=== PATIENT | male | born 1960 | race American Indian/Alaskan Native ===

== ENCOUNTER 2019-05-27 15:36 | Inpatient (IN) | payer BC, OTHER ==
--- NOTE | 2019-05-27 17:07 | Consultation ---
History of Present Illness - History of Present Illness 58 year old with medical history signficant for HTN, DM type II s/p BKA , ESRD on hemodialysis via a Right IJ cath at [facility]. Patient went to dialysis today and had a fever of 102.2 , associated chills. , has associated nausea, vomitting, diarrhoea, Denies any cough. He denies any shortness of breath , orthopnea or PND. He denies any dizziness or lightheadedness. He has a left BKA. Last dialysis was monday. Past History Past Medical History: dialysis Medications and Allergies Allergies Allergy/AdvReac Type Severity Reaction Status Date / Time No Known Allergies Allergy Verified 05/27/19 17:20 Home Medications Medication Instructions Recorded Confirmed Last Taken Type Lisinopril [Zestril TAB] 5 mg PO QDAY #30 tablet 03/27/14 05/27/19 05/27/19 08:00 Rx AtorvaSTATin [Lipitor] 40 mg PO QHS 05/27/19 05/27/19 05/26/19 21:00 History Carvedilol [Coreg] 25 mg PO DAILY 05/27/19 05/27/19 05/27/19 08:00 History Finasteride 5 mg PO QDAY 05/27/19 05/28/19 05/27/19 08:00 History Gabapentin [Neurontin] 300 mg PO DAILY 05/27/19 05/27/19 05/27/19 08:00 History Insulin NPH Hum/Reg Insulin Hm 100 unit SQ BID 05/27/19 05/28/19 05/27/19 08:00 History [HumuLIN 70-30 Vial] Losartan Potassium 100 mg PO DAILY 05/27/19 05/27/19 05/27/19 08:00 History Oxycodone HCl [oxyCODONE] 5 mg PO PRN PRN 05/27/19 05/27/19 05/27/19 08:00 History Vit B Comp No.3/Folic/C/Biotin 1 tab PO QDAY 05/27/19 05/27/19 05/27/19 08:00 History [Jerrica-Estrella Rx Tablet] amLODIPine [Norvasc] 10 mg PO DAILY 05/27/19 05/27/19 05/27/19 08:00 History traMADol [Ultram] 50 mg PO PRN PRN 05/27/19 05/27/19 05/27/19 08:00 History Review of Systems Constitutional: fever, chills, anorexia, poor appetite, no weight loss, no weight gain Ears, nose, mouth and throat: no deferred, no ear pain Cardiovascular: no chest pain, no orthopnea Respiratory: no cough Gastrointestinal: nausea, vomiting, diarrhea Genitourinary Male: no dysuria, no hematuria Rectal: no pain Musculoskeletal: no neck stiffness Integumentary: no deferred Neurological: no head injury, no vertigo Psychiatric: no anxiety, no memory loss Endocrine: cold intolerance, excessive sweating, no heat intolerance Allergic/Immunologic: no urticaria Exam - General Appearance General appearance: well-developed, well-nourished EENT: ATNC, PERRL Neck: Present: neck supple Respiratory: Clear to Ascultation Heart: regular, S1S2 Gastrointestinal: Present: normal, normoactive bowel sounds Integumentary: rash Neurologic: alert and oriented x3, CN 3-12 intact Musculoskeletal: Present: other (left BKA ) Psychiatric: mood/affect appropriate Results - Lab Results 05/28/19 05:04 05/28/19 05:04 - Image Kidney/bladder ultrasound: other (i received CXR with patchy hazy opacities/interstitial markings. ) Assessment and Plan - Patient Problems (1) End stage renal disease Current Visit: Yes Status: Acute Plan to address problem: ESRD on hemodialysis access : right IJ cath No acute hyperkalemia Will initiate HD in am. (2) Sepsis Current Visit: Yes Status: Acute Qualifiers: Sepsis type: sepsis due to unspecified organism Sepsis acute organ dysfunction status: without acute organ dysfunction Qualified Code(s): A41.9 - Sepsis, unspecified organism Plan to address problem: Sepsis : - obtain blood cultures - Will start broad spectrum antibiotics. (3) HTN (hypertension) Current Visit: No Status: Acute Qualifiers: Hypertension type: essential hypertension Qualified Code(s): I10 - Essential (primary) hypertension Plan to address problem: HTN; controlled Ensure medications monitor blood pressure. (4) DM type 2 causing complication Current Visit: No Status: Acute Plan to address problem: DM type II - Ensure medications. montior blood pressure.
[2019-05-27] MEDS ORDERED: SODIUM CHLORIDE 0.9% 500 ML 500 ML IV ONE (17:29)
[2019-05-27] MEDS ORDERED: CEFEPIME/NS 2 GM/100 ML 2 GM/100 ML BAG IV SCH (18:00)
[2019-05-27] MEDS ORDERED: VANCOMYCIN PHARMACY TO DOSE IV SCH ×2 (18:00→21:00)
--- NOTE | 2019-05-27 18:03 | XRay Report ---
CHEST 1 VIEW 5:42 PM INDICATION / CLINICAL INFORMATION: Possible sepsis. COMPARISON: 03/25/2014. FINDINGS: SUPPORT DEVICES: There is a right jugular permacath with the tip overlying the distal SVC. HEART / MEDIASTINUM: The heart size is borderline. Pulmonary vasculature is normal. LUNGS / PLEURA: No significant pulmonary or pleural abnormality. No pneumothorax. ADDITIONAL FINDINGS: There is mild to moderate elevation of the left hemidiaphragm, new since the balire or study. IMPRESSION: No evidence of pneumonia. Signer Name: Bala Garcia MD Signed: 05/27/2019 5:59 PM Workstation Name: [id number]
[2019-05-27 18:06] LABS: Hematocrit 31.1 % (35.5-45.6); Hemoglobin 9.9 gm/dl (11.8-15.2); Mean Corpuscular HGB Conc 32 % (32-34); Mean Corpuscular Volume 88 fl (84-94); Platelet Count 207 K/mm3 (140-440); Red Blood Count 3.51 M/mm3 (3.65-5.03); Red Cell Distribution Width 16.5 % (13.2-15.2)
[2019-05-27 18:17] LABS: INR 1.33 (0.87-1.13)
[2019-05-27] MEDS ORDERED: ACETAMINOPHEN 500 MG TAB PO ONE (18:29)
[2019-05-27 18:30] LABS: Calcium 8.1 mg/dL (8.4-10.2)
[2019-05-27] MEDS ORDERED: ACETAMINOPHEN 500 MG TAB ONE (18:30)
[2019-05-27] MEDS ORDERED: VANCOMYCIN 2,000 MG in SODIUM CHLORIDE 0.9% 500 ML 500 ML IV ONE (18:34)
--- NOTE | 2019-05-27 19:27 | Emergency Department Report ---
ED Fever HPI - General Chief Complaint: Fever Stated Complaint: FEVER/CHILLS Time Seen by Provider: 05/27/19 17:31 - History of Present Illness Initial Comments: Patient is a 58-year-old -Finnish male with past history of hypertension diabetes and end-stage renal disease who is on dialysis who is here complaining of fever. Patient states that he was at dialysis when they took his temperature was 102. He states he has some body aches but otherwise is not having any other symptoms to help localize a source of the patient's infection. He states he has mild nausea but no diarrhea or vomiting. The patient states is no cough. Patient next small amount of urine but has no dysuria or abdominal pain. ED Review of Systems ROS: Stated complaint: FEVER/CHILLS Other details as noted in HPI Comment: All other systems reviewed and negative ED Past Medical Hx - Past Medical History Previous Medical History?: Yes Hx Diabetes: Yes Hx Renal Disease: Yes Hx Asthma: Yes Hx COPD: No - Surgical History Past Surgical History?: Yes Additional Surgical History: left eye surgery. R BKA - Social History Smoking Status: Never Smoker Substance Use Type: None - Medications Home Medications: Home Medications Medication Instructions Recorded Confirmed Last Taken Type glipiZIDE [glipiZIDE XL] 10 mg PO QDAY 30 Days tab.er.24 12/13/13 03/24/14 03/07/14 09:00 Rx Albuterol Sulfate [Proventil HFA] 1 - 2 puff IH Q4H PRN 03/07/14 03/24/14 03/24/14 20:00 History Aspirin [Aspirin BABY CHEW TAB] 81 mg PO QDAY #30 tab.chew 03/27/14 Unknown Rx Carvedilol [Coreg] 3.125 mg PO BID #60 tablet 03/27/14 Unknown Rx Furosemide [Lasix] 40 mg PO DAILY #30 tablet 03/27/14 Unknown Rx Lisinopril [Zestril TAB] 5 mg PO QDAY #30 tablet 03/27/14 Unknown Rx ED Physical Exam - General Limitations: Physical Limitation General appearance: alert, in no apparent distress - Head Head exam: Present: atraumatic, normocephalic - Eye Eye exam: Present: normal appearance - ENT ENT exam: Present: normal orophraynx, mucous membranes moist - Neck Neck exam: Present: normal inspection - Respiratory Respiratory exam: Present: normal lung sounds bilaterally. Absent: respiratory distress, wheezes, rales, rhonchi, chest wall tenderness - Cardiovascular Cardiovascular Exam: Present: normal rhythm, tachycardia. Absent: systolic murmur, diastolic murmur, rubs, gallop - GI/Abdominal GI/Abdominal exam: Present: soft, normal bowel sounds. Absent: distended, tenderness, guarding, rebound - Rectal Rectal exam: Present: deferred - Extremities Exam Extremities exam: Present: normal inspection, other (left lower extremity [id number] amputation) - Back Exam Back exam: Present: normal inspection - Neurological Exam Neurological exam: Present: alert, oriented X3 - Psychiatric Psychiatric exam: Present: normal affect, normal mood - Skin Skin exam: Present: warm, dry, intact, normal color. Absent: rash ED Course Vital Signs 05/27/19 05/27/19 05/27/19 16:51 17:17 17:38 Temperature 103.1 F H Pulse Rate 128 H 131 H Respiratory 16 21 Rate Blood Pressure 130/73 130/73 O2 Sat by Pulse 96 97 Oximetry 05/27/19 05/27/19 05/27/19 17:46 18:00 18:37 Temperature 102.3 F H Pulse Rate 129 H 131 H Respiratory 26 H 24 Rate Blood Pressure 133/87 122/85 O2 Sat by Pulse 97 95 Oximetry 05/27/19 19:00 Temperature Pulse Rate 122 H Respiratory 23 Rate Blood Pressure 122/85 O2 Sat by Pulse 96 Oximetry ED Medical Decision Making - Lab Data Result diagrams: 05/27/19 17:44 05/27/19 17:44 Lab Results 05/27/19 05/27/19 05/27/19 Range/Units 17:44 17:44 17:44 WBC 15.6 H (4.5-11.0) K/mm3 RBC 3.51 L (3.65-5.03) M/mm3 Hgb 9.9 L (11.8-15.2) gm/dl Hct 31.1 L (35.5-45.6) % MCV 88 (84-94) fl MCH 28 (28-32) pg MCHC 32 (32-34) % RDW 16.5 H (13.2-15.2) % Plt Count 207 (140-440) K/mm3 Seg Neutrophils % Analytic Manager PT (12.2-14.9) Sec. INR (0.87-1.13) VBG pH (7.320-7.420) Sodium 131 L (137-145) mmol/L Potassium 4.6 (3.6-5.0) mmol/L Chloride 96.0 L (98-107) mmol/L Carbon Dioxide 19 L (22-30) mmol/L Anion Gap 21 mmol/L BUN 40 H (9-20) mg/dL Creatinine 5.3 H (0.8-1.5) mg/dL Estimated GFR 14 ml/min BUN/Creatinine Ratio 8 % Glucose 283 H (75-100) mg/dL Lactic Acid 2.20 H* (0.7-2.0) mmol/L Calcium 8.1 L (8.4-10.2) mg/dL Total Bilirubin 0.40 (0.1-1.2) mg/dL AST 51 H (5-40) units/L ALT 56 (7-56) units/L Alkaline Phosphatase 179 H (35-129) units/L Total Protein 8.2 (6.3-8.2) g/dL Albumin 3.0 L (3.9-5) g/dL Albumin/Globulin Ratio 0.6 % 05/27/19 05/27/19 Range/Units 17:54 17:55 WBC (4.5-11.0) K/mm3 RBC (3.65-5.03) M/mm3 Hgb (11.8-15.2) gm/dl Hct (35.5-45.6) % MCV (84-94) fl MCH (28-32) pg MCHC (32-34) % RDW (13.2-15.2) % Plt Count (140-440) K/mm3 Seg Neutrophils % PT 16.1 H (12.2-14.9) Sec. INR 1.33 H (0.87-1.13) VBG pH 7.383 (7.320-7.420) Sodium (137-145) mmol/L Potassium (3.6-5.0) mmol/L Chloride (98-107) mmol/L Carbon Dioxide (22-30) mmol/L Anion Gap mmol/L BUN (9-20) mg/dL Creatinine (0.8-1.5) mg/dL Estimated GFR ml/min BUN/Creatinine Ratio % Glucose (75-100) mg/dL Lactic Acid (0.7-2.0) mmol/L Calcium (8.4-10.2) mg/dL Total Bilirubin (0.1-1.2) mg/dL AST (5-40) units/L ALT (7-56) units/L Alkaline Phosphatase (35-129) units/L Total Protein (6.3-8.2) g/dL Albumin (3.9-5) g/dL Albumin/Globulin Ratio % - EKG Data -: EKG Interpreted by [facility] EKG shows normal: sinus rhythm, axis, intervals, QRS complexes, ST-T waves Rate: tachycardia - Radiology Data Patient: JAZMINE LOTT MR#: [id number] : 1960 Acct:[id number] Age/Sex: 58 / M ADM Date: 05/27/19 Loc: ED Attending Dr: Ordering Physician: MAN MADRID MD Date of Service: 05/27/19 Procedure(s): XR chest 1V ap Accession Number(s): [id number] cc: MAN MADRID MD Fluoro Time In Minutes: CHEST 1 VIEW 5:42 PM INDICATION / CLINICAL INFORMATION: Possible sepsis. COMPARISON: 03/25/2014. FINDINGS: SUPPORT DEVICES: There is a right jugular permacath with the tip overlying the distal SVC. HEART / MEDIASTINUM: The heart size is borderline. Pulmonary vasculature is normal. LUNGS / PLEURA: No significant pulmonary or pleural abnormality. No pneumothorax. ADDITIONAL FINDINGS: There is mild to moderate elevation of the left hemidiaphragm, new since the prior study. IMPRESSION: No evidence of pneumonia. Signer Name: Bala Garcia MD Signed: 05/27/2019 5:59 PM Workstation Name: [id number] Transcribed By: RT Dictated By: Bala Garcia MD Electronically Authenticated By: Bala Garcia MD Signed Date/Time: 05/27/19 9345 - Medical Decision Making Patient is a 58-year-old male who is presenting from dialysis with a fever. Patient's source is likely bacteremia from his dialysis catheter. Patient started on broad-spectrum antibiotics until blood cultures return. Patient be admitted to the hospitalist service at this time. Critical care attestation.: If time is entered above; I have spent that time in minutes in the direct care of this critically ill patient, excluding procedure time. ED Disposition Clinical Impression: End stage renal disease, Hyponatremia Sepsis Qualifiers: Sepsis type: sepsis due to unspecified organism Sepsis acute organ dysfunction status: without acute organ dysfunction Qualified Code(s): A41.9 - Sepsis, unspecified organism Disposition: OP ADMIT IP TO THIS HOSP Is pt being admited?: Yes Does the pt Need Aspirin: No Condition: Stable Time of Disposition: 19:26
[2019-05-27 20:04] LABS: Anisocytosis 1+; Band Neutrophils # (Manual) 0.8 K/mm3; Basophils % (Manual) 0 % (0.0-1.8); Eosinophils % (Manual) 0 % (0.0-4.3); Platelet Estimate Consistent w Auto; Poikilocytosis 1+; Total Cells Counted 100
[2019-05-27 20:05] LABS: Hepatitis B Surface Antigen Non-Reactive (Negative); Hepatitis C Virus Antibody Non-Reactive (NonReactive)
[2019-05-27] MEDS ORDERED: ONDANSETRON 4 MG/2 ML INJ IV PRN (20:26)
[2019-05-27] MEDS ORDERED: DEXTROSE 50% IN WATER (25GM) 50 ML SYRINGE IV PRN (20:26)
[2019-05-27] MEDS ORDERED: oxyCODONE /ACETAMINOPHEN 5-325MG TAB PO PRN (20:26)
[2019-05-27] MEDS ORDERED: ACETAMINOPHEN 325 MG TAB PO PRN (20:26)
[2019-05-27] MEDS ORDERED: ALBUTEROL 2.5 MG/3 ML NEBU IH PRN (20:33)
--- NOTE | 2019-05-27 21:10 | History and Physical Report ---
History of Present Illness Date of examination: 05/27/19 Date of admission: 05/27/19 19:27 Chief complaint: fever, chills History of present illness: 58-year-old -[place] male with history of hypertension, ESRD on HD, diabetes, asthma, right BKA who presents to [facility] ED with complaints of fever after presenting to [facility] in [place] where he was found to be febrile with temperature of 102. He states that he went [facility] dialysis for scheduled HD session, but was denied dialysis. He was found to be febrile and referred to the ED for further evaluation and treatment. Patient complains of chills, poor appetite and generalized malaise for the past 2 days. Upon arrival to ED he was found to be febrile with temperature 102.3 and tachycardic with heart rate of 131 bpm. He admits to having intermittent nausea but no emesis. He denies cough, headache, hemoptysis, hematemesis, hematuria, dysuria, or urinary frequency/ urgency. Past History Past Medical History: dialysis, ESRD, hypertension, other (Asthma ). denies: hypothyroidism (M/W/F) Past Surgical History: Other (left eye surgery, R BKA, right chest permacath) Social history: lives with family Family history: no significant family history Medications and Allergies Allergies Allergy/AdvReac Type Severity Reaction Status Date / Time No Known Allergies Allergy Verified 05/27/19 17:20 Home Medications Medication Instructions Recorded Confirmed Last Taken Type Lisinopril [Zestril TAB] 5 mg PO QDAY #30 tablet 03/27/14 05/27/19 08:00 Rx AtorvaSTATin [Lipitor] 40 mg PO QHS 05/27/19 05/27/19 05/26/19 21:00 History Carvedilol [Coreg] 25 mg PO DAILY 05/27/19 05/27/19 05/27/19 08:00 History Finasteride 5 mg PO 05/27/19 05/27/19 08:00 History Gabapentin [Neurontin] 300 mg PO DAILY 05/27/19 05/27/19 05/27/19 08:00 History Insulin NPH Hum/Reg Insulin Hm 100 unit SQ 05/27/19 05/27/19 08:00 History [HumuLIN 70-30 Vial] Losartan Potassium 100 mg PO DAILY 05/27/19 05/27/19 05/27/19 08:00 History Oxycodone HCl [oxyCODONE] 5 mg PO 05/27/19 05/27/19 08:00 History Tamsulosin [Flomax] 05/27/19 05/27/19 08:00 History Vit B Comp No.3/Folic/C/Biotin 05/27/19 05/27/19 08:00 History [Jerrica-Estrella Rx Tablet] amLODIPine [Norvasc] 10 mg PO DAILY 05/27/19 05/27/19 05/27/19 08:00 History traMADol [Ultram] 50 mg PO PRN PRN 05/27/19 05/27/19 05/27/19 08:00 History Active Meds: Active Medications Acetaminophen (Tylenol) 650 mg PO Q4H PRN PRN Reason: Pain MILD(1-3)/Fever >100.5/NUR Albuterol (Proventil) 2.5 mg IH Q4HRT PRN PRN Reason: Shortness Of Breath Aspirin (Baby Aspirin) 81 mg PO QDAY [facility] Carvedilol (Coreg) 3.125 mg PO BID [facility] Dextrose (D50w (25gm) Syringe) 50 ml IV PRN PRN PRN Reason: Hypoglycemia Docusate Sodium (Colace) 100 mg PO BID [facility] Furosemide (Lasix) 40 mg PO DAILY [facility] Cefepime HCl (Maxipime/Ns 1 Gm/100 Ml) 1 gm in 100 mls @ 200 mls/hr IV Q24H [facility]; Protocol Insulin Human Lispro (Humalog) 0 unit SUB-Q ACHS [facility]; Protocol Lisinopril (Zestril) 5 mg PO QDAY [facility] Ondansetron HCl (Zofran) 4 mg IV Q6H PRN PRN Reason: Nausea And Vomiting Oxycodone/Acetaminophen (Percocet 5/325) 1 tab PO Q6H PRN PRN Reason: Pain, Moderate (4-6) Sodium Chloride (Sodium Chloride Flush Syringe 10 Ml) 10 ml IV BID [facility] Sodium Chloride (Sodium Chloride Flush Syringe 10 Ml) 10 ml IV PRN PRN PRN Reason: LINE FLUSH Review of Systems All systems: negative Constitutional: fever, chills, anorexia, weakness, poor appetite Exam - Physical Exam Narrative exam: Physical exam General appearance: Present: No acute distress, alert and oriented 3, well dev eloped, pleasant, adult -[place] male - EENT Eyes: Present: PERRL, EOM intact, ENT: hearing intact, normal dentition - Neck Neck: Present: supple, normal ROM - Respiratory Respiratory effort: Non-labored Respiratory: CTA - Cardiovascular Heart rate: 120 (bpm) Rhythm: ST Heart Sounds: Present: S1, S2 - Extremities Extremities: no ischemia, pulses intact, right BKA - Peripheral Assessment Peripheral Pulses: within normal limits - Abdominal General gastrointestinal: soft, non-tender, normal bowel sounds - Integumentary Integumentary: Present: warm, extremely dry, multiple rash/healed sores to her arms and legs - Musculoskeletal Musculoskeletal: Able to move all extremities -Neurological Neurological: CN II-XII grossly intact - Psychiatric Psychiatric: cooperative - Constitutional Vitals: Temp Pulse Resp BP Pulse Ox 99.3 F 109 H 24 118/79 97 05/27/19 19:55 05/27/19 20:00 05/27/19 20:00 05/27/19 20:00 05/27/19 20:00 Results - Labs CBC & Chem 7: 05/27/19 17:44 05/27/19 17:44 Labs: Laboratory Last Values WBC 15.6 K/mm3 (4.5-11.0) H 05/27/19 17:44 RBC 3.51 M/mm3 (3.65-5.03) L 05/27/19 17:44 Hgb 9.9 gm/dl (11.8-15.2) L 05/27/19 17:44 Hct 31.1 % (35.5-45.6) L 05/27/19 17:44 MCV 88 fl (84-94) 05/27/19 17:44 MCH 28 pg (28-32) 05/27/19 17:44 MCHC 32 % (32-34) 05/27/19 17:44 RDW 16.5 % (13.2-15.2) H 05/27/19 17:44 Plt Count 207 K/mm3 (140-440) 05/27/19 17:44 Add Manual Diff Complete 05/27/19 17:44 Total Counted 100 05/27/19 17:44 Seg Neutrophils % Remote Inpatient Coder 05/27/19 17:44 Seg Neuts % (Manual) 84.0 % (40.0-70.0) H 05/27/19 17:44 Band Neutrophils % 5.0 % 05/27/19 17:44 Lymphocytes % (Manual) 8.0 % (13.4-35.0) L 05/27/19 17:44 Reactive Lymphs % (Man) 0 % 05/27/19 17:44 Monocytes % (Manual) 3.0 % (0.0-7.3) 05/27/19 17:44 Eosinophils % (Manual) 0 % (0.0-4.3) 05/27/19 17:44 Basophils % (Manual) 0 % (0.0-1.8) 05/27/19 17:44 Metamyelocytes % 0 % 05/27/19 17:44 Myelocytes % 0 % 05/27/19 17:44 Promyelocytes % 0 % 05/27/19 17:44 Blast Cells % 0 % 05/27/19 17:44 Nucleated RBC % Not Reportable 05/27/19 17:44 Seg Neutrophils # Man 13.1 K/mm3 (1.8-7.7) H 05/27/19 17:44 Band Neutrophils # 0.8 K/mm3 05/27/19 17:44 Lymphocytes # (Manual) 1.2 K/mm3 (1.2-5.4) 05/27/19 17:44 Abs React Lymphs (Man) 0.0 K/mm3 05/27/19 17:44 Monocytes # (Manual) 0.5 K/mm3 (0.0-0.8) 05/27/19 17:44 Eosinophils # (Manual) 0.0 K/mm3 (0.0-0.4) 05/27/19 17:44 Basophils # (Manual) 0.0 K/mm3 (0.0-0.1) 05/27/19 17:44 Metamyelocytes # 0.0 K/mm3 05/27/19 17:44 Myelocytes # 0.0 K/mm3 05/27/19 17:44 Promyelocytes # 0.0 K/mm3 05/27/19 17:44 Blast Cells # 0.0 K/mm3 05/27/19 17:44 WBC Morphology Not Reportable 05/27/19 17:44 Hypersegmented Neuts Not Reportable 05/27/19 17:44 Hyposegmented Neuts Not Reportable 05/27/19 17:44 Hypogranular Neuts Not Reportable 05/27/19 17:44 Smudge Cells Not Reportable 05/27/19 17:44 Toxic Granulation Not Reportable 05/27/19 17:44 Toxic Vacuolation Not Reportable 05/27/19 17:44 Dohle Bodies Not Reportable 05/27/19 17:44 Pelger-Huet Anomaly Not Reportable 05/27/19 17:44 Patricia Rods Not Reportable 05/27/19 17:44 Platelet Estimate Consistent w auto 05/27/19 17:44 Clumped Platelets Not Reportable 05/27/19 17:44 Plt Clumps, EDTA Not Reportable 05/27/19 17:44 Large Platelets Not Reportable 05/27/19 17:44 Giant Platelets Not Reportable 05/27/19 17:44 Platelet Satelliting Not Reportable 05/27/19 17:44 Plt Morphology Comment Not Reportable 05/27/19 17:44 RBC Morphology Not Reportable 05/27/19 17:44 Dimorphic RBCs Not Reportable 05/27/19 17:44 Polychromasia Not Reportable 05/27/19 17:44 Hypochromasia Not Reportable 05/27/19 17:44 Poikilocytosis 1+ 05/27/19 17:44 Anisocytosis 1+ 05/27/19 17:44 Microcytosis Not Reportable 05/27/19 17:44 Macrocytosis Not Reportable 05/27/19 17:44 Spherocytes Not Reportable 05/27/19 17:44 Pappenheimer Bodies Not Reportable 05/27/19 17:44 Sickle Cells Not Reportable 05/27/19 17:44 Target Cells Not Reportable 05/27/19 17:44 Tear Drop Cells Not Reportable 05/27/19 17:44 Ovalocytes Not Reportable 05/27/19 17:44 Helmet Cells Not Reportable 05/27/19 17:44 [place] Bodies Not Reportable 05/27/19 17:44 [place] Rings Not Reportable 05/27/19 17:44 [place] Cells Not Reportable 05/27/19 17:44 Bite Cells Not Reportable 05/27/19 17:44 Crenated Cell Not Reportable 05/27/19 17:44 Elliptocytes Not Reportable 05/27/19 17:44 Acanthocytes (Spur) Not Reportable 05/27/19 17:44 Rouleaux Not Reportable 05/27/19 17:44 Hemoglobin C Crystals Not Reportable 05/27/19 17:44 Schistocytes Not Reportable 05/27/19 17:44 Malaria parasites Not Reportable 05/27/19 17:44 Matias Bodies Not Reportable 05/27/19 17:44 Hem Pathologist Commnt No 05/27/19 17:44 PT 16.1 Sec. (12.2-14.9) H 05/27/19 17:55 INR 1.33 (0.87-1.13) H 05/27/19 17:55 VBG pH 7.383 (7.320-7.420) 05/27/19 17:54 Sodium 131 mmol/L (137-145) L 05/27/19 17:44 Potassium 4.6 mmol/L (3.6-5.0) 05/27/19 17:44 Chloride 96.0 mmol/L (98-107) L 05/27/19 17:44 Carbon Dioxide 19 mmol/L (22-30) L 05/27/19 17:44 Anion Gap 21 mmol/L 05/27/19 17:44 BUN 40 mg/dL (9-20) H 05/27/19 17:44 Creatinine 5.3 mg/dL (0.8-1.5) H 05/27/19 17:44 Estimated GFR 14 ml/min 05/27/19 17:44 BUN/Creatinine Ratio 8 % 05/27/19 17:44 Glucose 283 mg/dL (75-100) H 05/27/19 17:44 Lactic Acid 1.20 mmol/L (0.7-2.0) 05/27/19 20:06 Calcium 8.1 mg/dL (8.4-10.2) L 05/27/19 17:44 Total Bilirubin 0.40 mg/dL (0.1-1.2) 05/27/19 17:44 AST 51 units/L (5-40) H 05/27/19 17:44 ALT 56 units/L (7-56) 05/27/19 17:44 Alkaline Phosphatase 179 units/L (35-129) H 05/27/19 17:44 Total Protein 8.2 g/dL (6.3-8.2) 05/27/19 17:44 Albumin 3.0 g/dL (3.9-5) L 05/27/19 17:44 Albumin/Globulin Ratio 0.6 % 05/27/19 17:44 Hepatitis A IgM Ab Non-reactive (NonReactive) 05/27/19 19:29 Hep Bs Antigen Non-reactive (Negative) 05/27/19 19:29 Hep B Core IgM Ab Non-reactive (NonReactive) 05/27/19 19:29 Hepatitis C Antibody Non-reactive (NonReactive) 05/27/19 19:29 - Imaging and Cardiology Imaging and Cardiology: CXR FINDINGS: SUPPORT DEVICES: There is a right jugular permacath with the tip overlying the distal SVC. HEART / MEDIASTINUM: The heart size is borderline. Pulmonary vasculature is normal. LUNGS / PLEURA: No significant pulmonary or pleural abnormality. No pneumothorax. ADDITIONAL FINDINGS: There is mild to moderate elevation of the left hemidiaphragm, new since the prior study. IMPRESSION: No evidence of pneumonia. Assessment and Plan Assessment and plan: 58-year-old -[place] male with history of hypertension, ESRD on HD, diabetes, asthma, right BKA who presents to [facility] ED with complaints of fever after presenting to [facility] in [place] where he was found to be febrile with temperature of 102. SIRS -TMAX 102.3 -HR 131 -WBC 15.6 Suspicion of Bacteremia from HD catheter -Blood and urine cultures pending -Will start on empiric IV abx -ID consult pending ESRD on HD -M/W/F -Last dialyzed on 05/24/19 -Nephrology consulted DM2 -With hyperglycemia -BG on admission 283 -Resume home insulin once medication reconciliation has been updated -SSI coverage prn -HgbA1c pending HTN -Monitor BP -Resume home hypertensive meds DVT PPX -on Heparin Advance Directives: No VTE prophylaxis?: Mechanical
[2019-05-27] MEDS ORDERED: diphenhydrAMINE 50 MG/ML VIAL IV PRN (21:45)
[2019-05-27] MEDS ORDERED: carvediloL 3.125 MG TAB PO SCH (22:00)
[2019-05-27] MEDS: DOCUSATE SODIUM 100 MG CAP PO SCH (22:57)
[2019-05-27] MEDS: HEPARIN 5,000 UNIT/1 ML VIAL SUB-Q SCH (22:58)
[2019-05-27] MEDS: INSULIN LISPRO 100 UNIT/ML SUB-Q SCH (23:01)
[2019-05-28 05:38] LABS: Basophils % (Auto) 0.3 % (0.0-1.8); Eosinophils % (Auto) 0.2 % (0.0-4.3); Hematocrit 29.1 % (35.5-45.6); Hemoglobin 9.4 gm/dl (11.8-15.2); Lymphocytes # (Auto) 0.8 K/mm3 (1.2-5.4); Mean Corpuscular HGB Conc 32 % (32-34); Mean Corpuscular Volume 87 fl (84-94); Monocytes # (Auto) 0.5 K/mm3 (0.0-0.8); Monocytes % (Auto) 4.7 % (0.0-7.3); Platelet Count 191 K/mm3 (140-440); Red Blood Count 3.35 M/mm3 (3.65-5.03); Red Cell Distribution Width 16.4 % (13.2-15.2)
[2019-05-28 05:46] LABS: Calcium 7.9 mg/dL (8.4-10.2)
[2019-05-28] MEDS ORDERED: traMADol 50 MG TAB PO PRN (08:45)
[2019-05-28] MEDS: INSULIN LISPRO 100 UNIT/ML SUB-Q SCH ×3 (09:06→16:11)
[2019-05-28] MEDS ORDERED: INSULIN NPH/REGULAR 70/30 INJ SUB-Q SCH (09:30)
[2019-05-28 09:45] LABS: Bilirubin,Urine NEG (Negative); Blood,Urine SM (Negative); Color,Urine Yellow (Yellow); Urobilinogen,Urine < 2.0 mg/dL (<2.0)
[2019-05-28 09:57] LABS: WBC,Urine > 182.0 /HPF (0.0-6.0)
[2019-05-28] MEDS ORDERED: FOLIC ACID/VIT B COMP W-C 1 MG (RENAL CAPS) PO SCH (10:00)
[2019-05-28] MEDS ORDERED: TAMSULOSIN 0.4 MG CAP PO SCH (10:00)
[2019-05-28] MEDS ORDERED: LISINOPRIL 5 MG TAB PO SCH (10:00)
[2019-05-28] MEDS ORDERED: LOSARTAN POTASSIUM 50 MG PO SCH (10:00)
[2019-05-28] MEDS ORDERED: amLODIPine 10 MG TAB PO SCH (10:00)
[2019-05-28] MEDS ORDERED: GABAPENTIN 300 MG CAP PO SCH (10:00)
[2019-05-28] MEDS ORDERED: FUROSEMIDE 40 MG TAB PO SCH (10:00)
[2019-05-28] MEDS ORDERED: LOSARTAN 50 MG TAB PO SCH (10:00)
[2019-05-28] MEDS ORDERED: ASPIRIN 81 MG TAB CHEW PO SCH (10:00)
[2019-05-28] MEDS ORDERED: NON-FORMULARY EACH (Vit B Comp No.3/Folic/C/Biotin [Rena-Vite Rx Tablet] 1 TAB) PO SCH (10:00)
[2019-05-28] MEDS ORDERED: ASCORBIC ACID 500 MG TAB PO SCH (10:00)
[2019-05-28] MEDS ORDERED: FINASTERIDE 5 MG TAB PO SCH (10:00)
[2019-05-28] MEDS ORDERED: carvediloL 25 MG TAB PO SCH (10:00)
--- NOTE | 2019-05-28 10:11 | Progress Note ---
Assessment and Plan - Patient Problems (1) End stage renal disease Current Visit: Yes Status: Acute Plan to address problem: ESRD on hemodialysis access : right IJ cath No acute hyperkalemia Will initiate HD today (2) Sepsis Current Visit: Yes Status: Acute Qualifiers: Sepsis type: sepsis due to unspecified organism Sepsis acute organ dysfunction status: without acute organ dysfunction Qualified Code(s): A41.9 - Sepsis, unspecified organism Plan to address problem: Sepsis : - possible catheter related infection - s/p peripheral blood cultures Will obtain blood cultures from the catheter. - patient was started on Vancomycin and cefepime (3) HTN (hypertension) Current Visit: No Status: Acute Qualifiers: Hypertension type: essential hypertension Qualified Code(s): I10 - Essential (primary) hypertension Plan to address problem: HTN; controlled Ensure medications monitor blood pressure. (4) DM type 2 causing complication Current Visit: No Status: Acute Plan to address problem: DM type II - Ensure medications. montior blood pressure. Subjective Interval history: 58 year old with medical history signficant for HTN, DM type II s/p BKA , ESRD on hemodialysis via a Right IJ cath at [facility]. Patient went to dialysis today and had a fever of 102.2 , associated chills. , has associated nausea, vomitting, diarrhoea, Denies any cough. He denies any shortness of breath , orthopnea or PND. He denies any dizziness or lightheadedness. He has a left BKA. Last dialysis prior to admission was monday. Patient seen today, complains of chills , awaiting results of blood cultures. no orthopnea or PND. Objective - Vital Signs Vital signs: Vital Signs - 12hr 05/27/19 05/27/19 05/27/19 22:17 22:19 22:30 Temperature 99.3 F 98.3 F Pulse Rate 109 H 100 H Respiratory 24 16 16 Rate Blood Pressure 114/79 Blood Pressure 122/85 [Right] O2 Sat by Pulse 97 98 Oximetry 05/28/19 04:58 Temperature 98.8 F Pulse Rate 107 H Respiratory 18 Rate Blood Pressure 130/82 Blood Pressure [Right] O2 Sat by Pulse 97 Oximetry - General Appearance General appearance: well-developed, well-nourished EENT: ATNC, PERRL, mucous membranes moist Neck: no JVD Respiratory: Present: Decreased Breath Sounds Cardiology: regular, S1S2 Gastrointestinal: normal, normoactive bowel sounds Integumentary: no rash Neurologic: alert and oriented x3, CN 3-12 intact Musculoskeletal: other (left BKA. ) Psychiatric: agitated - Lab 05/28/19 05:04 05/28/19 05:04 Most recent lab results Calcium 7.9 mg/dL (8.4-10.2) L 05/28/19 05:04 - Imaging Chest x-ray: other (I reviewed CXR with right ij perm cath , hazy opacities. ) Medications & Allergies - Medications Allergies/Adverse Reactions: Allergies No Known Allergies Allergy (Verified 05/27/19 17:20) Home Medications: Home Medications Medication Instructions Recorded Confirmed Last Taken Type Lisinopril [Zestril TAB] 5 mg PO QDAY #30 tablet 03/27/14 05/27/19 05/27/19 08:00 Rx AtorvaSTATin [Lipitor] 40 mg PO QHS 05/27/19 05/27/19 05/26/19 21:00 History Carvedilol [Coreg] 25 mg PO DAILY 05/27/19 05/27/19 05/27/19 08:00 History Finasteride 5 mg PO QDAY 05/27/19 05/28/19 05/27/19 08:00 History Gabapentin [Neurontin] 300 mg PO DAILY 05/27/19 05/27/19 05/27/19 08:00 History Insulin NPH Hum/Reg Insulin Hm 100 unit SQ BID 05/27/19 05/28/19 05/27/19 08:00 History [HumuLIN 70-30 Vial] Losartan Potassium 100 mg PO DAILY 05/27/19 05/27/19 05/27/19 08:00 History Oxycodone HCl [oxyCODONE] 5 mg PO PRN PRN 05/27/19 05/27/19 05/27/19 08:00 History Vit B Comp No.3/Folic/C/Biotin 1 tab PO QDAY 05/27/19 05/27/19 05/27/19 08:00 History [Jerrica-Estrella Rx Tablet] amLODIPine [Norvasc] 10 mg PO DAILY 05/27/19 05/27/19 05/27/19 08:00 History traMADol [Ultram] 50 mg PO PRN PRN 05/27/19 05/27/19 05/27/19 08:00 History Active Medications: Generic Name Dose Route Start Last Admin Trade Name Yesika PRN Reason Stop Dose Admin Acetaminophen 650 mg 05/27/19 20:26 Tylenol PO Q4H PRN Pain MILD(1-3)/Fever >100.5/NUR Albuterol 2.5 mg 05/27/19 20:33 Proventil IH Q4HRT PRN Shortness Of Breath Amlodipine Besylate 10 mg 05/28/19 10:00 Norvasc PO DAILY [facility] Ascorbic Acid 500 mg 05/28/19 10:00 Vitamin C PO QDAY [facility] Aspirin 81 mg 05/28/19 10:00 Baby Aspirin PO QDAY [facility] Atorvastatin Calcium 40 mg 05/27/19 22:00 05/27/19 22:57 Lipitor PO 40 mg QHS ZAHIRA Administration Carvedilol 25 mg 05/28/19 10:00 Coreg PO DAILY [facility] Dextrose 50 ml 05/27/19 20:26 D50w (25gm) Syringe IV PRN PRN Hypoglycemia Diphenhydramine HCl 25 mg 05/27/19 21:45 Benadryl IV Q6H PRN Itching Docusate Sodium 100 mg 05/27/19 22:00 05/27/19 22:57 Colace PO 100 mg BID [facility] Administration Finasteride 5 mg 05/28/19 10:00 Proscar PO QDAY [facility] Furosemide 40 mg 05/28/19 10:00 Lasix PO DAILY [facility] Gabapentin 300 mg 05/28/19 10:00 Neurontin PO DAILY [facility] Heparin Sodium (Porcine) 5,000 unit 05/27/19 22:00 05/27/19 22:58 Heparin SUB-Q 5,000 unit Q12HR ZAHIRA Administration Cefepime HCl 1 gm in 100 mls @ 200 mls/hr 05/28/19 20:00 Maxipime/Ns 1 Gm/100 Ml IV Q24H [facility] Protocol Insulin Human Isoph/Insulin Regular 20 unit 05/28/19 09:30 Humulin 70/30 SUB-Q BIDDIAB [facility] Insulin Human Lispro 0 unit 05/27/19 22:00 05/28/19 09:06 Humalog SUB-Q Not Given ACHS [facility] Protocol Losartan Potassium 50 mg 05/28/19 10:00 Cozaar PO DAILY [facility] Multivit/Ca Carb/B Cmplx/FA/Prenat 1 cap 05/28/19 10:00 Renal Caps PO QDAY ZAHIRA Ondansetron HCl 4 mg 05/27/19 20:26 Zofran IV Q6H PRN Nausea And Vomiting Oxycodone/Acetaminophen 1 tab 05/27/19 20:26 Percocet 5/325 PO Q6H PRN Pain, Moderate (4-6) Sodium Chloride 10 ml 05/27/19 22:00 05/27/19 23:02 Sodium Chloride Flush Syringe 10 Ml IV 10 ml BID ZAHIRA Administration Sodium Chloride 10 ml 05/27/19 20:26 Sodium Chloride Flush Syringe 10 Ml IV PRN PRN LINE FLUSH Tamsulosin HCl 0.4 mg 05/28/19 10:00 Flomax PO DAILY [facility] Tramadol HCl 50 mg 05/28/19 08:45 Ultram PO Q6H PRN BREAKTHRU PAIN
[2019-05-28] MEDS ORDERED: SODIUM CHLORIDE*PRIMING MACHINE ONLY FOR DIALYSIS MC ONE (12:33)
--- NOTE | 2019-05-28 13:02 | Discharge Summary ---
Providers - Providers Date of Admission: 05/27/19 19:27 Date of discharge: 05/28/19 Attending physician: VINH ISAACS 05/27/19 20:26 Consult to Physician [CONS] Routine Comment: Consulting Provider: RUBEN MCCALLUM Physician Instructions: Reason For Exam: ??bacteremia from HD catheter Primary care physician: ISHAAN MELVIN Hospitalization Condition: Stable Hospital course: 58-year-old -[place] male with history of hypertension, ESRD on HD, diabetes, asthma, right BKA who presents to [facility] ED with complaints of fever after presenting to [facility] in [place] where he was found to be febrile with temperature of 102. He was placed on cefepime and vancomycin, blood Cx drawn, received HD. Patient's insurance planned to transferred the patient to [facility]. Patient was transferred to [facility] after HD pending blood cx result. CXR: no infiltrates Discharge diagnosis and management: Sepsis with bacteremia -TMAX 102.3, HR 131, WBC 15.6 on admission - blood cx drawn, placed on iv abx - blood cx growing gm +ve cocci Suspicion of Bacteremia from HD catheter -Blood cultures positive for gm +ve cocci, final cx pending -placed on empiric IV abx ESRD on HD -M/W/F -Last dialyzed on 05/24/19 -Nephrology consulted, s/p HD DM2 -With hyperglycemia -BG on admission 283 -Resumed home insulin, SSI coverage prn HTN -Monitored BP, Resumed home hypertensive meds DVT PPX -on Heparin Disposition: DC/TX-02 SHRT-TRM GEN HOSP IP Time spent for discharge: 34 minutes Core Measure Documentation - Palliative Care Palliative Care/ Comfort Measures: Not Applicable - Core Measures Any of the following diagnoses?: none Exam - Physical Exam Narrative exam: General appearance: Present: No acute distress, alert and oriented 3, well developed, pleasant, adult -[place] male - EENT Eyes: Present: PERRL, EOM intact, ENT: hearing intact, normal dentition - Neck Neck: Present: supple, normal ROM - Respiratory Respiratory effort: Non-labored Respiratory: CTA - Cardiovascular Heart rate: 120 (bpm) Rhythm: ST Heart Sounds: Present: S1, S2 - Extremities Extremities: no ischemia, pulses intact, right BKA - Peripheral Assessment Peripheral Pulses: within normal limits - Abdominal General gastrointestinal: soft, non-tender, normal bowel sounds - Integumentary Integumentary: Present: warm, extremely dry, multiple rash/healed sores to her arms and legs - Musculoskeletal Musculoskeletal: Able to move all extremities -Neurological Neurological: CN II-XII grossly intact - Psychiatric Psychiatric: cooperative - Constitutional Vitals: Temp Pulse Resp BP Pulse Ox 98.8 F 121 H 18 150/82 97 05/28/19 10:10 05/28/19 12:30 05/28/19 10:10 05/28/19 12:30 05/28/19 04:58 Plan Activity: fall precautions Weight Bearing Status: Non-Weight Bearing Diet: renal Follow up with: ISHAAN MELVIN MD [Primary Care Provider] - 7 Days
[2019-05-28 15:30] VITALS: BP 133/87
[2019-05-28] MEDS: DOCUSATE SODIUM 100 MG CAP PO SCH ×2 (15:39)
[2019-05-28] MEDS: HEPARIN 5,000 UNIT/1 ML VIAL SUB-Q SCH (15:41)
--- NOTE | 2019-05-28 16:52 | Consultation ---
History of Present Illness - Reason for Consult Consult date: 05/28/19 bacteremia Requesting physician: TOÑA SANCHEZ - History of Present Illness 58 y/o male with history of extensive eczema, hypertension, ESRD on HD, diabetes, asthma, PVD s/p right BKA admitted on due to fever at HD center. Patient found with 102 fever at [facility] in [place]. His HD was canceled and he was sent to the ED. Reports malaise and subective fever for 2 days. He denies sick contacts, cough, SOB, N/V/D. He has chronic ezcema rash and itches a lot and scratches. His HD perm cath was placed a year ago. In the ED, temp 103.1, HR 118, R 18, BP 139/78. WBC 15.6. Hg 9.9. Plat 207. Creat 5.3. UA wbc 182, LE moderate. Blood culture 05/27/2919 GPC in clusters 3 of 4 bottles. CXR negative. ID consulted for management of bacteremia. Review of Systems: General: + fever, + chills, + malaise Cutaneous: +chronic rash Head: no headaches or injury Eyes: no changes in vision, eye pain, double vision Ears: no ear pain, ear discharge, ringing or hearing loss Nose: no nose bleeding, stuffiness Mouth & throat: no bleeding gums, no horseness, no dental problems, or swollen glands Neck: no pain, node enlargement/lumps, tyroid enlargement or tenderness Respiratory: no SOB, no cough, no BLANCO, wheezing, sputum, hemoptysis, pleuritic chest pain Cardiovascular: no chest pain, leg edema, cyanosis, BLANCO, orthopnea Musculoskeletal: no edema Gastrointestinal: no nausea, no vomiting, no hematemesis, diarrhea, constipation, melena, bright red blood in stools, fecal incontinence, jaundice Genitourinary/Reproductive: no frequent urination, dysuria, hematuria, incontinence Neurogical: no seizures, no headaches, no weakness, no paresthesias, no loss of speech or vision; no memory loss, no vertigo, no tremors, no numbness Psychiatric: stable mood; no excessive anxiety, sadness or moodiness Past History Past Medical History: dialysis Past Surgical History: Other (left eye surgery, R BKA, right chest permacath) Social history: lives with family Family history: no significant family history Medications and Allergies Allergies Allergy/AdvReac Type Severity Reaction Status Date / Time No Known Allergies Allergy Verified 05/27/19 17:20 Home Medications Medication Instructions Recorded Confirmed Last Taken Type AtorvaSTATin [Lipitor] 40 mg PO QHS 05/27/19 05/27/19 05/26/19 21:00 History Carvedilol [Coreg] 25 mg PO DAILY 05/27/19 05/27/19 05/27/19 08:00 History Finasteride 5 mg PO QDAY 05/27/19 05/28/19 05/27/19 08:00 History Gabapentin [Neurontin] 300 mg PO DAILY 05/27/19 05/27/19 05/27/19 08:00 History Insulin NPH Hum/Reg Insulin Hm 100 unit SQ BID 05/27/19 05/28/19 05/27/19 08:00 History [HumuLIN 70-30 Vial] Losartan Potassium 100 mg PO DAILY 05/27/19 05/27/19 05/27/19 08:00 History Vit B Comp No.3/Folic/C/Biotin 1 tab PO QDAY 05/27/19 05/27/19 05/27/19 08:00 History [Jerrica-Estrella Rx Tablet] amLODIPine [Norvasc] 10 mg PO DAILY 05/27/19 05/27/19 05/27/19 08:00 History traMADol [Ultram 50 MG tab] 50 mg PO PRN PRN 05/27/19 05/27/19 05/27/19 08:00 History Active Meds: Active Medications Acetaminophen (Tylenol) 650 mg PO Q4H PRN PRN Reason: Pain MILD(1-3)/Fever >100.5/NUR Last Admin: 05/28/19 15:38 Dose: 650 mg Documented by: Albuterol (Proventil) 2.5 mg IH Q4HRT PRN PRN Reason: Shortness Of Breath Amlodipine Besylate (Norvasc) 10 mg PO DAILY [facility] Last Admin: 05/28/19 15:38 Dose: 10 mg Documented by: Ascorbic Acid (Vitamin C) 500 mg PO QDAY [facility] Last Admin: 05/28/19 15:37 Dose: 500 mg Documented by: Aspirin (Baby Aspirin) 81 mg PO QDAY [facility] Last Admin: 05/28/19 15:37 Dose: 81 mg Documented by: Atorvastatin Calcium (Lipitor) 40 mg PO QHS [facility] Last Admin: 05/27/19 22:57 Dose: 40 mg Documented by: Carvedilol (Coreg) 25 mg PO DAILY [facility] Last Admin: 05/28/19 15:38 Dose: 25 mg Documented by: Dextrose (D50w (25gm) Syringe) 50 ml IV PRN PRN PRN Reason: Hypoglycemia Diphenhydramine HCl (Benadryl) 25 mg IV Q6H PRN PRN Reason: Itching Docusate Sodium (Colace) 100 mg PO BID [facility] Last Admin: 05/28/19 15:39 Dose: Not Given Documented by: Finasteride (Proscar) 5 mg PO QDAY [facility] Last Admin: 05/28/19 15:37 Dose: 5 mg Documented by: Furosemide (Lasix) 40 mg PO DAILY [facility] Last Admin: 05/28/19 15:38 Dose: 40 mg Documented by: Gabapentin (Neurontin) 300 mg PO DAILY [facility] Last Admin: 05/28/19 15:38 Dose: 300 mg Documented by: Heparin Sodium (Porcine) (Heparin) 5,000 unit SUB-Q Q12HR [facility] Last Admin: 05/28/19 15:41 Dose: 5,000 unit Documented by: Cefepime HCl (Maxipime/Ns 1 Gm/100 Ml) 1 gm in 100 mls @ 200 mls/hr IV Q24H [facility]; Protocol Insulin Human Isoph/Insulin Regular (Humulin 70/30) 20 unit SUB-Q BIDDIAB [facility] Last Admin: 05/28/19 16:03 Dose: 20 unit Documented by: Insulin Human Lispro (Humalog) 0 unit SUB-Q ACHS [facility]; Protocol Last Admin: 05/28/19 16:11 Dose: 6 unit Documented by: Losartan Potassium (Cozaar) 50 mg PO DAILY [facility] Last Admin: 05/28/19 15:37 Dose: 50 mg Documented by: Multivit/Ca Carb/B Cmplx/FA/Prenat (Renal Caps) 1 cap PO QDAY [facility] Last Admin: 05/28/19 15:37 Dose: 1 cap Documented by: Ondansetron HCl (Zofran) 4 mg IV Q6H PRN PRN Reason: Nausea And Vomiting Oxycodone/Acetaminophen (Percocet 5/325) 1 tab PO Q6H PRN PRN Reason: Pain, Moderate (4-6) Sodium Chloride (Sodium Chloride Flush Syringe 10 Ml) 10 ml IV BID [facility] Last Admin: 05/28/19 15:43 Dose: 10 ml Documented by: Sodium Chloride (Sodium Chloride Flush Syringe 10 Ml) 10 ml IV PRN PRN PRN Reason: LINE FLUSH Tamsulosin HCl (Flomax) 0.4 mg PO DAILY [facility] Last Admin: 05/28/19 16:01 Dose: 0.4 mg Documented by: Tramadol HCl (Ultram) 50 mg PO Q6H PRN PRN Reason: BREAKTHRU PAIN Physical Examination - Physical Exam Narrative exam: General appearance: Alert in NAD Eyes: anicteric sclerae, moist conjunctivae; no lid-lag; PERRLA HENT: Atraumatic; oropharynx clear with moist mucous membranes and no mucosal ulcerations/no oral thrush; normal hard and soft palate. Lungs: CTA, with normal respiratory effort and no intercostal retractions CV: RRR no murmur Abdomen: Soft, non-tender; no masses or hepatosplenomegaly Extremities: no edema, no cyanosis Skin: +diffuse scaly rash allover Psych: Appropriate affect, alert and oriented to person, place and time. Neuro: alert and oriented x 3. Moving all extermities IJ HD cath - Constitutional Vitals: Vital Signs Temp Pulse Resp BP Pulse Ox 100.2 F H 122 H 22 133/87 94 05/28/19 15:21 05/28/19 15:37 05/28/19 15:21 05/28/19 15:37 05/28/19 15:21 Temperature -Last 24 Hours Temperature 100.2 F Temperature 98.0 F Temperature 98.8 F Temperature 98.8 F Temperature 98.3 F Temperature 99.3 F Temperature 99.3 F Temperature 102.3 F Temperature 103.1 F Results - Labs CBC & Chem 7: 05/28/19 05:04 05/28/19 05:04 Labs: Abnormal lab results 05/27/19 05/27/19 05/27/19 Range/Units 17:44 17:44 17:44 WBC 15.6 H (4.5-11.0) K/mm3 RBC 3.51 L (3.65-5.03) M/mm3 Hgb 9.9 L (11.8-15.2) gm/dl Hct 31.1 L (35.5-45.6) % RDW 16.5 H (13.2-15.2) % Lymph % (Auto) (13.4-35.0) % Lymph # (1.2-5.4) K/mm3 Seg Neutrophils % (40.0-70.0) % Seg Neuts % (Manual) 84.0 H (40.0-70.0) % Lymphocytes % (Manual) 8.0 L (13.4-35.0) % Seg Neutrophils # (1.8-7.7) K/mm3 Seg Neutrophils # Man 13.1 H (1.8-7.7) K/mm3 PT (12.2-14.9) Sec. INR (0.87-1.13) Sodium 131 L (137-145) mmol/L Chloride 96.0 L (98-107) mmol/L Carbon Dioxide 19 L (22-30) mmol/L BUN 40 H (9-20) mg/dL Creatinine 5.3 H (0.8-1.5) mg/dL Glucose 283 H (75-100) mg/dL POC Glucose (70-105) Lactic Acid 2.20 H* (0.7-2.0) mmol/L Calcium 8.1 L (8.4-10.2) mg/dL AST 51 H (5-40) units/L Alkaline Phosphatase 179 H (35-129) units/L Albumin 3.0 L (3.9-5) g/dL Urine WBC (Auto) (0.0-6.0) /HPF 05/27/19 05/27/19 05/28/19 Range/Units 17:55 23:00 05:04 WBC 11.6 H (4.5-11.0) K/mm3 RBC 3.35 L (3.65-5.03) M/mm3 Hgb 9.4 L (11.8-15.2) gm/dl Hct 29.1 L (35.5-45.6) % RDW 16.4 H (13.2-15.2) % Lymph % (Auto) 7.0 L (13.4-35.0) % Lymph # 0.8 L (1.2-5.4) K/mm3 Seg Neutrophils % 87.8 H (40.0-70.0) % Seg Neuts % (Manual) (40.0-70.0) % Lymphocytes % (Manual) (13.4-35.0) % Seg Neutrophils # 10.2 H (1.8-7.7) K/mm3 Seg Neutrophils # Man (1.8-7.7) K/mm3 PT 16.1 H (12.2-14.9) Sec. INR 1.33 H (0.87-1.13) Sodium (137-145) mmol/L Chloride (98-107) mmol/L Carbon Dioxide (22-30) mmol/L BUN (9-20) mg/dL Creatinine (0.8-1.5) mg/dL Glucose (75-100) mg/dL POC Glucose 254 H (70-105) Lactic Acid (0.7-2.0) mmol/L Calcium (8.4-10.2) mg/dL AST (5-40) units/L Alkaline Phosphatase (35-129) units/L Albumin (3.9-5) g/dL Urine WBC (Auto) (0.0-6.0) /HPF 05/28/19 05/28/19 05/28/19 Range/Units 05:04 08:12 08:51 WBC (4.5-11.0) K/mm3 RBC (3.65-5.03) M/mm3 Hgb (11.8-15.2) gm/dl Hct (35.5-45.6) % RDW (13.2-15.2) % Lymph % (Auto) (13.4-35.0) % Lymph # (1.2-5.4) K/mm3 Seg Neutrophils % (40.0-70.0) % Seg Neuts % (Manual) (40.0-70.0) % Lymphocytes % (Manual) (13.4-35.0) % Seg Neutrophils # (1.8-7.7) K/mm3 Seg Neutrophils # Man (1.8-7.7) K/mm3 PT (12.2-14.9) Sec. INR (0.87-1.13) Sodium 135 L (137-145) mmol/L Chloride (98-107) mmol/L Carbon Dioxide (22-30) mmol/L BUN 45 H (9-20) mg/dL Creatinine 5.6 H (0.8-1.5) mg/dL Glucose 182 H (75-100) mg/dL POC Glucose 142 H (70-105) Lactic Acid (0.7-2.0) mmol/L Calcium 7.9 L (8.4-10.2) mg/dL AST (5-40) units/L Alkaline Phosphatase (35-129) units/L Albumin (3.9-5) g/dL Urine WBC (Auto) > 182.0 H (0.0-6.0) /HPF 05/28/19 Range/Units 16:11 WBC (4.5-11.0) K/mm3 RBC (3.65-5.03) M/mm3 Hgb (11.8-15.2) gm/dl Hct (35.5-45.6) % RDW (13.2-15.2) % Lymph % (Auto) (13.4-35.0) % Lymph # (1.2-5.4) K/mm3 Seg Neutrophils % (40.0-70.0) % Seg Neuts % (Manual) (40.0-70.0) % Lymphocytes % (Manual) (13.4-35.0) % Seg Neutrophils # (1.8-7.7) K/mm3 Seg Neutrophils # Man (1.8-7.7) K/mm3 PT (12.2-14.9) Sec. INR (0.87-1.13) Sodium (137-145) mmol/L Chloride (98-107) mmol/L Carbon Dioxide (22-30) mmol/L BUN (9-20) mg/dL Creatinine (0.8-1.5) mg/dL Glucose (75-100) mg/dL POC Glucose 305 H (70-105) Lactic Acid (0.7-2.0) mmol/L Calcium (8.4-10.2) mg/dL AST (5-40) units/L Alkaline Phosphatase (35-129) units/L Albumin (3.9-5) g/dL Urine WBC (Auto) (0.0-6.0) /HPF Assessment and Plan Cultures: Blood culture 05/27/2919 GPC in clusters 3 of 4 bottles. Assessment: 58 y/o male with history of extensive eczema, hypertension, ESRD on HD, diabetes, asthma, PVD s/p right BKA admitted on 05/27/2019 due to fever at HD center: 1) Severe Sepsis: present on admission with fever, tachycardia; source GPC bacteremia +/- UTI. 2) GPC bacteremia: blood culture 05/27/2919 GPC in clusters 3 of 4 bottles. Likely HD cath infection. Most likely MSSA or MRSA. Patient found with 102 fever at [facility] in [place]. He has chronic ezcema rash and itches a lot and scratches. Patient with eczema are highly colonized with Staph aureus. His HD perm cath was placed a year ago. 3) UTI: UA wbc 182, LE moderate. Recommendations: follow up blood culture and urine culture repeat blood culture in 48 h if Staph aureus will remove HD cath obtain TTE continue renally adjusted cefepime and vancomycin contact isolation until MRSA is r/o Will follow. Annita Hamilton MD Infectious Diseases [employer] [facility] M [phone]
[2019-05-28] MEDS ORDERED: CEFEPIME/NS 1 GM/100 ML 1 GM/100 ML BAG IV SCH (20:00)
== END 2019-05-28 17:30 | disposition short-term general hospital (02) | DRG 314 ==
LOC: ED 15:36 → 3A 19:27
PROVIDERS: ADMIT Internal Medicine; ATTEND Internal Medicine
PROC: 5A1D70Z Performance of Urinary Filtration, Intermittent, Less than 6 Hours Per Day (ICD-10-PCS; principal; 2019-05-28)
DX: T80.211A Bloodstream infection due to central venous catheter, initial encounter (principal); A41.9 Sepsis, unspecified organism; N18.6 End stage renal disease; R65.20 Severe sepsis without septic shock; E87.1 Hypo-osmolality and hyponatremia; I12.0 Hypertensive chronic kidney disease with stage 5 chronic kidney disease or end stage renal disease; N39.0 Urinary tract infection, site not specified; Y83.8 Other surgical procedures as the cause of abnormal reaction of the patient, or of later complication, without mention of misadventure at the time of the procedure; E11.65 Type 2 diabetes mellitus with hyperglycemia; E11.22 Type 2 diabetes mellitus with diabetic chronic kidney disease; Z89.511 Acquired absence of right leg below knee; Z79.899 Other long term (current) drug therapy; Z79.4 Long term (current) use of insulin; Z99.2 Dependence on renal dialysis; Y92.098 Other place in other non-institutional residence as the place of occurrence of the external cause
CPT/HCPCS: 36415; 71045; 80048; 80053; 80074; 81001; 82140; 82805; 82962; 85007; 85025; 85610; 87040; 87086; 87116; 87186; 93005; 93010; 96374; G0378; A9270-GY; J0692; J1644; J1815; J3370; J7030; J7040

== ENCOUNTER 2022-05-08 10:31 | Inpatient (IN) | payer MEDICARE ==
--- NOTE | 2022-05-08 11:29 | Emergency Department Report ---
HPI - General Chief Complaint: Dyspnea/Respdistress PUI?: No Time Seen by Provider: 05/08/22 11:17 - HPI HPI: 61-year-old male with multiple medical comorbidities including congestive heart failure, end-stage renal disease on hemodialysis Monday, brought in by ems for evaluation of difficulty breathing and shortness of breath. Patient states he typically undergoes hemodialysis Monday, but his permacath "fell out" on Monday and he could not be replaced until 1 day ago. He states he did not undergo dialysis on Monday but subsequently underwent 2 to out of the 3 and half hours of dialysis. When asked why he did not complete his dialysis, patient states "I just could not take it anymore." He reports onset of shortness of breath today. He denies any chest pain. Of note patient has a right [id number] amputation. He denies any pain or swelling in his left lower extremity. No cough or URI symptoms. No chest pain. Remainder of review of systems negative. Of note EMS personnel not readily available to provide further information with respect to HPI to this provider at the time of my assessment of the patient ED Past Medical Hx - Past Medical History Previous Medical History?: Yes Hx Hypertension: Yes Hx Diabetes: Yes Hx Renal Disease: Yes (ESRD, H/D MWF) Hx Asthma: Yes Hx COPD: No - Surgical History Additional Surgical History: left eye surgery. R BKA - Social History Smoking Status: Never Smoker - Medications Home Medications: Home Medications Medication Instructions Recorded Confirmed Last Taken Type AtorvaSTATin [Lipitor] 40 mg PO QHS 05/27/19 05/27/19 05/26/19 21:00 History Finasteride 5 mg PO QDAY 05/27/19 05/28/19 05/27/19 08:00 History Gabapentin 300 mg PO DAILY 05/27/19 05/27/19 05/27/19 08:00 History Insulin NPH Hum/Reg Insulin Hm 100 unit SQ BID 05/27/19 05/28/19 05/27/19 08:00 History [HumuLIN 70-30 Vial] Losartan Potassium 100 mg PO DAILY 05/27/19 05/27/19 05/27/19 08:00 History Vit B Comp No.3/Folic/C/Biotin 1 tab PO QDAY 05/27/19 05/27/19 05/27/19 08:00 History [Jerrica-Estrella Rx Tablet] amLODIPine 10 mg PO DAILY 05/27/19 05/27/19 05/27/19 08:00 History carvediloL [Coreg] 25 mg PO DAILY 05/27/19 05/27/19 05/27/19 08:00 History traMADoL [Ultram 50 MG tab] 50 mg PO PRN PRN 05/27/19 05/27/19 05/27/19 08:00 History ED Review of Systems ROS: Stated complaint: CAITLIN Other details as noted in HPI Comment: All other systems reviewed and negative Physical Exam - Physical Exam Vital Signs: Vital Signs 05/08/22 10:47 Temperature 98.6 F Pulse Rate 120 H Respiratory 18 Rate Blood Pressure 187/105 [Left] O2 Sat by Pulse 98 Oximetry General: Gen: Middle-age male, weak appearing, visibly dyspneic, mentating well, no drooling no stridor, mild respiratory distress HEENT: Normocephalic atraumatic pupils equally round and reactive to light extraocular muscles intact sclera anicteric Neck: Full range of motion, no midline spinal tenderness palpation, no JVD, no carotid bruits, no nuchal rigidity CVS: S1-S2 regular rate and rhythm with no gallops rubs or murmurs, chest wall nontender Pulmonary: Clear to auscultation bilaterally, no wheezes rales or rhonchi Abdomen: Soft nondistended nontender no guarding or rebound tenderness, no palpable deformities or step-offs, normal active bowel sounds, no hepatosplenom egaly, no pulsatile masses : Deferred Extremities: Left lower extremity grossly unremarkable, no cyanosis no clubbing no edema, intact DP PT pulses, patient has right [id number] amputation with prosthetic leg in place Integumentary: Skin normal, no petechia no purpura no abscess no lacerations no evidence of trauma no evidence of infection Neuro: Patient is awake alert and oriented to person place time situation, mentating well, cranial nerves II through XII intact, no focal neurodeficits, sensation grossly tact Psych: Calm cooperative, mood affect normal ED Course Vital Signs 05/08/22 10:47 Temperature 98.6 F Pulse Rate 120 H Respiratory 18 Rate Blood Pressure 187/105 [Left] O2 Sat by Pulse 98 Oximetry - Reevaluation(s) Reevaluation #1: 05/08/22 13:29 Pt reassessed. He remains tachypneic but he is comfortable appearing. He denies any other symptoms at this time. Pt states he has a preference to be transferred to an [facility]. Pt informed that per [facility] physician, they will attempt to find a bed but if none are available, it will be recommended that the patient be admitted here. Pt verbalized understanding. Reevaluation #2: 05/08/22 16:02 Patient reassessed. He is asleep but easily arousable. Patient updated concerning plan of care to have him admitted here. He verbalized understanding and agreement. - Consultations Consultation #1: 05/08/22 13:28-13:29 [facility] physician:Dr. Woodard: Per her verbal report, the patient has [employer] a secondary insurance. If the patient would like he may be transferred to a [facility] facility if a bed is available at one of the hospitals. She requested that I discussed this with the patient. Patient verbalized agreement and stated he would like to be transferred to a [facility] receiving facility. Per her verbal report, attempts will be made within the next 2 hours to find a bed for the patient at one of the facilities. If none are able to be found, she will return my call and inform me that the patient is to be kept here. 05/08/22 15:41: I called Dr. Woodard to obtain a status update. Per verbal report there are no current beds available at any of the [facility] receiving facilities. She is requesting the patient be admitted to [facility] inpatient unit for hemodialysis and further management. ED Medical Decision Making - Lab Data Result diagrams: 05/08/22 11:51 05/08/22 11:51 - EKG Data -: EKG Interpreted by Me EKG shows normal: sinus rhythm Rate: tachycardia - EKG Data When compared to previous EKG there are: no significant change Interpretation: no acute changes 05/08/22 12:32 EKG interpreted by me: Ventricular rate 109 bpm. P waves are present and proceed every QRS complex. Intervals normal. No ST segment depressions or elevations. No T wave flattening or inversions. No ectopy. No arrhythmia. Normal axis. Patient has Q waves in anterior septal leads. Sinus tachycardia. - Radiology Data Radiology results: report reviewed - Medical Decision Making 61-year-old male with multiple medical comorbidities including end-stage renal disease on hemodialysis Monday, presents for evaluation of acute decompensated heart failure, and hypoxemia. Patient noted to desat down to the 80s when taken off of oxygen. He was placed on 3 L of supplemental oxygen via Nasal cannula and maintain his oxygen saturation at approximately 98 to 99%. Case was reviewed with [facility] physician, . Approximately 3 hours later, I telephoned Dr. Rivera again and per her verbal report, there are currently no beds available. She is requesting that the patient be admitted to [facility] inpatient unit. I spoke to the on-call linoleum floor installer, (15:45). He states he will evaluate the patient and determine if the patient requires emergent hemodialysis based off of the patient's presentation, serum labs, and current clinical status. Case reviewed with Dr. Ortega, admitting hospitalist. He has verbalized agreement to admit the patient to the hospital service for further management Critical Care Time: No Critical care attestation.: If time is entered above; I have spent that time in minutes in the direct care of this critically ill patient, excluding procedure time. ED Disposition Clinical Impression: ESRD (end stage renal disease), Hypoxemia Disposition: ADMITTED INPATIENT Is pt being admited?: Yes Does the pt Need Aspirin: No Condition: Stable Referrals: JAVIER BLANTON MD [Primary Care Provider] - 3-5 Days
--- NOTE | 2022-05-08 11:40 | XRay Report ---
CHEST 1 VIEW 05/08/2022 11:21 AM INDICATION / CLINICAL INFORMATION: hx of chf, esrd on h/d, p/w sob. COMPARISON: Radiograph 05/27/2019 FINDINGS: SUPPORT DEVICES: Right IJ CVL with the tip object at the right atrium HEART / MEDIASTINUM: Cardiomegaly. LUNGS / PLEURA: Mild diffuse interstitial prominence. No pneumothorax. ADDITIONAL FINDINGS: No significant additional findings. IMPRESSION: 1. Cardiomegaly with mild diffuse interstitial prominence. Findings are suggestive of CHF. Signer Name: Archie Faulkner MD Signed: 05/08/2022 11:36 AM Workstation Name: [id number]
[2022-05-08 11:57] LABS: ABG Base Excess -3.3 mmol/L (-2.0-3.0); ABG Methemoglobin 0.6 % (0.0-1.5); ABG PCO2 40.5 mm Hg; ABG PH 7.353 pH Units (7.350-7.450); ABG PO2 52.2 mm Hg (80.0-90.0)
[2022-05-08 12:47] LABS: Hematocrit 37.1 % (35.5-45.6); Hemoglobin 11.9 gm/dl (11.8-15.2); Mean Corpuscular HGB Conc 32 % (32-34); Mean Corpuscular Volume 92 fl (84-94); Platelet Count 129 K/mm3 (140-440); Red Blood Count 4.03 M/mm3 (3.65-5.03); Red Cell Distribution Width 16.3 % (13.2-15.2)
[2022-05-08 13:12] LABS: Albumin 4.1 g/dL (3.9-5); Calcium 7.9 mg/dL (8.4-10.2)
[2022-05-08] MEDS ORDERED: FUROSEMIDE 40 MG/4 ML INJ IV ONE (13:33)
[2022-05-08] MEDS ORDERED: ETOMIDATE 20 MG/10 ML INJ IV ONE (13:36)
[2022-05-08 14:13] LABS: Anisocytosis Few; Band Neutrophils # (Manual) 0.3 K/mm3; Basophils % (Manual) 0 % (0.0-1.8); Eosinophils % (Manual) 0 % (0.0-4.3); Platelet Estimate Consistent w Auto; Total Cells Counted 100
--- NOTE | 2022-05-08 17:05 | Consultation ---
History of Present Illness - Reason for Consult Consult date: 05/08/22 end stage renal disease Requesting physician: CAROLINE VELAZQUEZ - History of Present Illness 61-year-old male who is not known to me with a history of end-stage renal disease on hemodialysis on a Monday, Monday and Monday schedule. Patient dialyzes at [facility]. Patient's permacath fell out on Monday and was unable to get dialysis. He has a failed left upper extremity AV fistula. It was replaced yesterday but he was only able to get 2 hours of dialysis as he was not able to take it any longer. Developed shortness of breath today and he kept worsening and so he came to the ER for evaluation. Denies chest pain. Patient was placed on oxygen and on trying to remove it O2 sat dropped to 80%. Chest shows pulmonary vascular congestion. I am consulted to assist with managing renal failure, provide dialysis and manage fluid and electrolyte abnormalities. On further inquiry, he also states he "had the shakes". He denies any fever though. 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 denies: smoking, alcohol abuse Family history: other (Mother of complications of alcoholism and kidney failure) Medications and Allergies Allergies Allergy/AdvReac Type Severity Reaction Status Date / Time No Known Allergies Allergy Verified 05/27/19 17:20 Home Medications Medication Instructions Recorded Confirmed Last Taken Type AtorvaSTATin [Lipitor] 40 mg PO QHS 05/27/19 05/27/19 05/26/19 21:00 History Finasteride 5 mg PO QDAY 05/27/19 05/28/19 05/27/19 08:00 History Gabapentin 300 mg PO DAILY 05/27/19 05/27/19 05/27/19 08:00 History Insulin NPH Hum/Reg Insulin Hm 100 unit SQ BID 05/27/19 05/28/19 05/27/19 08:00 History [HumuLIN 70-30 Vial] Losartan Potassium 100 mg PO DAILY 05/27/19 05/27/19 05/27/19 08:00 History Vit B Comp No.3/Folic/C/Biotin 1 tab PO QDAY 05/27/19 05/27/19 05/27/19 08:00 History [Jerrica-Estrella Rx Tablet] amLODIPine 10 mg PO DAILY 05/27/19 05/27/19 05/27/19 08:00 History carvediloL [Coreg] 25 mg PO DAILY 05/27/19 05/27/19 05/27/19 08:00 History traMADoL [Ultram 50 MG tab] 50 mg PO PRN PRN 05/27/19 05/27/19 05/27/19 08:00 History Exam - Vital Signs Vital signs: Vital Signs Temp Pulse Resp BP Pulse Ox 98.6 F 120 H 18 187/105 98 05/08/22 10:47 05/08/22 10:47 05/08/22 10:47 05/08/22 10:47 05/08/22 10:47 - Physical Exam Narrative exam: Middle-aged -[place] male lying in bed in no acute distress HEENT: NCAT, pink conjunctiva, anicteric sclera Right IJ permacath intact with clean dry dressing, mild swelling Neck: Supple, no venous distention CVS: S1S2 RRR with no murmur, rub or gallop Chest: Clear to auscultation but breath sounds diminished in lower zones Abdomen: Protuberant, soft, nontender, no organomegaly, bowel sounds are present Extremities: No edema, prosthesis right leg, left second finger amputated Genitourinary deferred Skin warm and dry Neuro: Awake, alert no focal deficits Results - Lab Results 05/08/22 11:51 05/08/22 11:51 Most recent lab results ABG pH 7.353 pH Units (7.350-7.450) 05/08/22 11:36 ABG pCO2 40.5 mm Hg 05/08/22 11:36 ABG pO2 52.2 mm Hg (80.0-90.0) L 05/08/22 11:36 ABG HCO3 22.0 mmol/L (20.0-26.0) 05/08/22 11:36 ABG O2 Saturation 87.0 % (95.0-99.0) L 05/08/22 11:36 Calcium 7.9 mg/dL (8.4-10.2) L 05/08/22 11:51 Assessment and Plan - Patient Problems (1) Fluid overload Current Visit: Yes Status: Acute Plan to address problem: Patient is stable in no distress on oxygen via nasal cannula. We will dialyze first thing in the morning except his condition changes. (2) Accelerated hypertension Current Visit: Yes Status: Acute Plan to address problem: Probably volume related. Blood pressure has improved to 111/72 mmHg by the time I evaluated him. (3) Type 2 diabetes mellitus with diabetic chronic kidney disease Current Visit: Yes Status: Acute Plan to address problem: Blood sugar management by primary attending. (4) Chronic heart failure Current Visit: Yes Status: Acute Plan to address problem: Continue beta-blockers and fluid removal on dialysis. (5) End stage renal disease on dialysis Current Visit: Yes Status: Acute Plan to address problem: Patient on hemodialysis on a Monday, Monday and Monday schedule. Monitor temperature and obtain cultures if he has a fever. Reinforced importance of adhering to dialysis regimen.
--- NOTE | 2022-05-08 17:40 | History and Physical Report ---
History of Present Illness Date of examination: 05/08/22 Date of admission: 05/08/2022 Chief complaint: Increasing shortness of breath for 2 days. History of present illness: 61-year-old male with multiple medical comorbidities including congestive heart failure, end-stage renal disease on hemodialysis Monday, brought in by ems for evaluation of difficulty breathing and shortness of breath. Patient states he typically undergoes hemodialysis Monday, but his permacath "fell out" on Monday and he could not be replaced until 1 day ago. He states he did not undergo dialysis on Monday but subsequently underwent 2 to out of the 3 and half hours of dialysis. When asked why he did not complete his dialysis, patient states "I just could not take it anymore." He reports onset of shortness of breath today. He denies any chest pain. Of note patient has a right [id number] amputation. He denies any pain or swelling in his left lower extremity. No cough or URI symptoms. No chest pain. Remainder of review of systems negative. - Past Medical History --Previous Medical History?: Yes --Hypertension: Yes --Diabetes: Yes --Renal Disease: Yes (ESRD, H/D MWF) --Asthma: Yes - Surgical History --Additional Surgical History: left eye surgery. R BKA - Social History --Smoking Status: Never Smoker - Medications Home Medications: Home Medications Medication Instructions Recorded Confirmed Last Taken Type AtorvaSTATin [Lipitor] 40 mg PO QHS 05/27/19 05/27/19 05/26/19 21:00 History Finasteride 5 mg PO QDAY 05/27/19 05/28/19 05/27/19 08:00 History Gabapentin 300 mg PO DAILY 05/27/19 05/27/19 05/27/19 08:00 History Insulin NPH Hum/Reg Insulin Hm 100 unit SQ BID 05/27/19 05/28/19 05/27/19 08:00 History [HumuLIN 70-30 Vial] Losartan Potassium 100 mg PO DAILY 05/27/19 05/27/19 05/27/19 08:00 History Vit B Comp No.3/Folic/C/Biotin 1 tab PO QDAY 05/27/19 05/27/19 05/27/19 08:00 History [Jerrica-Estrella Rx Tablet] amLODIPine 10 mg PO DAILY 05/27/19 05/27/19 05/27/19 08:00 History carvediloL [Coreg] 25 mg PO DAILY 05/27/19 05/27/19 05/27/19 08:00 History traMADoL [Ultram 50 MG tab] 50 mg PO PRN PRN 05/27/19 05/27/19 05/27/19 08:00 History Review of Systems ROS: Stated complaint: CAITLIN Other details as noted in HPI Comment: All other systems reviewed and negative Past History Past Medical History: diabetes (Complicated by), ESRD, heart failure, hypertension Past Surgical History: Other (Right above-knee amputation, left eye surgery) Medications and Allergies Allergies Allergy/AdvReac Type Severity Reaction Status Date / Time No Known Allergies Allergy Verified 05/27/19 17:20 Home Medications Medication Instructions Recorded Confirmed Last Taken Type AtorvaSTATin [Lipitor] 40 mg PO QHS 05/27/19 05/27/19 05/26/19 21:00 History Finasteride 5 mg PO QDAY 05/27/19 05/28/19 05/27/19 08:00 History Gabapentin 300 mg PO DAILY 05/27/19 05/27/19 05/27/19 08:00 History Insulin NPH Hum/Reg Insulin Hm 100 unit SQ BID 05/27/19 05/28/19 05/27/19 08:00 History [HumuLIN 70-30 Vial] Losartan Potassium 100 mg PO DAILY 05/27/19 05/27/19 05/27/19 08:00 History Vit B Comp No.3/Folic/C/Biotin 1 tab PO QDAY 05/27/19 05/27/19 05/27/19 08:00 History [Jerrica-Estrella Rx Tablet] amLODIPine 10 mg PO DAILY 05/27/19 05/27/19 05/27/19 08:00 History carvediloL [Coreg] 25 mg PO DAILY 05/27/19 05/27/19 05/27/19 08:00 History traMADoL [Ultram 50 MG tab] 50 mg PO PRN PRN 05/27/19 05/27/19 05/27/19 08:00 History Exam - Constitutional Vitals: Temp Pulse Resp BP Pulse Ox 98.6 F 120 H 18 187/105 98 05/08/22 10:47 05/08/22 10:47 05/08/22 10:47 05/08/22 10:47 05/08/22 10:47 General appearance: Present: mild distress, well-nourished - EENT Eyes: Present: PERRL ENT: hearing intact, clear oral mucosa - Neck Neck: Present: supple, normal ROM - Respiratory Respiratory effort: normal Respiratory: bilateral: CTA, rales - Cardiovascular Heart rate: 78 Rhythm: regular Heart Sounds: Present: S1 & S2. Absent: rub, click - Extremities Extremities: pulses symmetrical, No edema Peripheral Pulses: within normal limits - Abdominal General gastrointestinal: Present: soft, non-tender, non-distended, normal bowel sounds Male genitourinary: Present: normal - Integumentary Integumentary: Present: clear, warm, dry - Musculoskeletal Musculoskeletal: gait normal, strength equal bilaterally - Psychiatric Psychiatric: appropriate mood/affect, intact judgment & insight - Neurologic Neurologic: CNII-XII intact, moves all extremities Results - Labs CBC & Chem 7: 05/09/22 05:38 05/09/22 05:38 Labs: Laboratory Last Values WBC 8.0 K/mm3 (4.5-11.0) 05/08/22 11:51 RBC 4.03 M/mm3 (3.65-5.03) 05/08/22 11:51 Hgb 11.9 gm/dl (11.8-15.2) 05/08/22 11:51 Hct 37.1 % (35.5-45.6) 05/08/22 11:51 MCV 92 fl (84-94) 05/08/22 11:51 MCH 30 pg (28-32) 05/08/22 11:51 MCHC 32 % (32-34) 05/08/22 11:51 RDW 16.3 % (13.2-15.2) H 05/08/22 11:51 Plt Count 129 K/mm3 (140-440) L 05/08/22 11:51 Add Manual Diff Complete 05/08/22 11:51 Total Counted 100 05/08/22 11:51 Seg Neutrophils % [place] 05/08/22 11:51 Seg Neuts % (Manual) 92.0 % (40.0-70.0) H 05/08/22 11:51 Band Neutrophils % 4.0 % 05/08/22 11:51 Lymphocytes % (Manual) 3.0 % (13.4-35.0) L 05/08/22 11:51 Reactive Lymphs % (Man) 0 % 05/08/22 11:51 Monocytes % (Manual) 1.0 % (0.0-7.3) 05/08/22 11:51 Eosinophils % (Manual) 0 % (0.0-4.3) 05/08/22 11:51 Basophils % (Manual) 0 % (0.0-1.8) 05/08/22 11:51 Metamyelocytes % 0 % 05/08/22 11:51 Myelocytes % 0 % 05/08/22 11:51 Promyelocytes % 0 % 05/08/22 11:51 Blast Cells % 0 % 05/08/22 11:51 Nucleated RBC % Not Reportable 05/08/22 11:51 Seg Neutrophils # Man 7.4 K/mm3 (1.8-7.7) 05/08/22 11:51 Band Neutrophils # 0.3 K/mm3 05/08/22 11:51 Lymphocytes # (Manual) 0.2 K/mm3 (1.2-5.4) L 05/08/22 11:51 Abs React Lymphs (Man) 0.0 K/mm3 05/08/22 11:51 Monocytes # (Manual) 0.1 K/mm3 (0.0-0.8) 05/08/22 11:51 Eosinophils # (Manual) 0.0 K/mm3 (0.0-0.4) 05/08/22 11:51 Basophils # (Manual) 0.0 K/mm3 (0.0-0.1) 05/08/22 11:51 Metamyelocytes # 0.0 K/mm3 05/08/22 11:51 Myelocytes # 0.0 K/mm3 05/08/22 11:51 Promyelocytes # 0.0 K/mm3 05/08/22 11:51 Blast Cells # 0.0 K/mm3 05/08/22 11:51 WBC Morphology Not Reportable 05/08/22 11:51 Hypersegmented Neuts Not Reportable 05/08/22 11:51 Hyposegmented Neuts Not Reportable 05/08/22 11:51 Hypogranular Neuts Not Reportable 05/08/22 11:51 Smudge Cells Not Reportable 05/08/22 11:51 Toxic Granulation Not Reportable 05/08/22 11:51 Toxic Vacuolation Not Reportable 05/08/22 11:51 Dohle Bodies Not Reportable 05/08/22 11:51 Pelger-Huet Anomaly Not Reportable 05/08/22 11:51 Patricia Rods Not Reportable 05/08/22 11:51 Platelet Estimate Consistent w auto 05/08/22 11:51 Clumped Platelets Not Reportable 05/08/22 11:51 Plt Clumps, EDTA Not Reportable 05/08/22 11:51 Large Platelets Not Reportable 05/08/22 11:51 Giant Platelets Not Reportable 05/08/22 11:51 Platelet Satelliting Not Reportable 05/08/22 11:51 Plt Morphology Comment Not Reportable 05/08/22 11:51 RBC Morphology Not Reportable 05/08/22 11:51 Dimorphic RBCs Not Reportable 05/08/22 11:51 Polychromasia Not Reportable 05/08/22 11:51 Hypochromasia Not Reportable 05/08/22 11:51 Poikilocytosis Not Reportable 05/08/22 11:51 Anisocytosis Few 05/08/22 11:51 Microcytosis Not Reportable 05/08/22 11:51 Macrocytosis Not Reportable 05/08/22 11:51 Spherocytes Not Reportable 05/08/22 11:51 Pappenheimer Bodies Not Reportable 05/08/22 11:51 Sickle Cells Not Reportable 05/08/22 11:51 Target Cells Not Reportable 05/08/22 11:51 Tear Drop Cells Not Reportable 05/08/22 11:51 Ovalocytes Not Reportable 05/08/22 11:51 Helmet Cells Not Reportable 05/08/22 11:51 [place] Bodies Not Reportable 05/08/22 11:51 [place] Rings Not Reportable 05/08/22 11:51 Cannon Cells Not Reportable 05/08/22 11:51 Bite Cells Not Reportable 05/08/22 11:51 Crenated Cell Not Reportable 05/08/22 11:51 Elliptocytes Not Reportable 05/08/22 11:51 Acanthocytes (Spur) Not Reportable 05/08/22 11:51 Rouleaux Not Reportable 05/08/22 11:51 Hemoglobin C Crystals Not Reportable 05/08/22 11:51 Schistocytes Not Reportable 05/08/22 11:51 Malaria parasites Not Reportable 05/08/22 11:51 Mtaias Bodies Not Reportable 05/08/22 11:51 Hem Pathologist Commnt No 05/08/22 11:51 ABG pH 7.353 pH Units (7.350-7.450) 05/08/22 11:36 ABG pCO2 40.5 mm Hg 05/08/22 11:36 ABG pO2 52.2 mm Hg (80.0-90.0) L 05/08/22 11:36 ABG HCO3 22.0 mmol/L (20.0-26.0) 05/08/22 11:36 ABG O2 Saturation 87.0 % (95.0-99.0) L 05/08/22 11:36 ABG O2 Content 13.4 (0.0-44) 05/08/22 11:36 ABG Base Excess -3.3 mmol/L (-2.0-3.0) L 05/08/22 11:36 ABG Hemoglobin 11.2 gm/dl (14.0-18.0) L 05/08/22 11:36 ABG Carboxyhemoglobin 1.6 % (0.0-5.0) 05/08/22 11:36 ABG Methemoglobin 0.6 % (0.0-1.5) 05/08/22 11:36 Oxyhemoglobin 85.1 % (95.0-99.0) L 05/08/22 11:36 FiO2 21 % 05/08/22 11:36 Sodium 140 mmol/L (137-145) 05/08/22 11:51 Potassium 4.4 mmol/L (3.6-5.0) 05/08/22 11:51 Chloride 100.9 mmol/L (98-107) 05/08/22 11:51 Carbon Dioxide 21 mmol/L (22-30) L 05/08/22 11:51 Anion Gap 23 mmol/L 05/08/22 11:51 BUN 70 mg/dL (9-20) H 05/08/22 11:51 Creatinine 14.8 mg/dL (0.8-1.3) H 05/08/22 11:51 Estimated GFR 4 ml/min 05/08/22 11:51 BUN/Creatinine Ratio 5 % 05/08/22 11:51 Glucose 141 mg/dL (75-100) H 05/08/22 11:51 Calcium 7.9 mg/dL (8.4-10.2) L 05/08/22 11:51 Total Bilirubin 0.30 mg/dL (0.1-1.2) 05/08/22 11:51 AST 24 units/L (5-40) 05/08/22 11:51 ALT 19 units/L (7-56) 05/08/22 11:51 Alkaline Phosphatase 108 units/L (35-129) 05/08/22 11:51 NT-Pro-B Natriuret Pep 62980 pg/mL (0-900) H 05/08/22 11:51 Total Protein 7.1 g/dL (6.3-8.2) 05/08/22 11:51 Albumin 4.1 g/dL (3.9-5) 05/08/22 11:51 Albumin/Globulin Ratio 1.4 % 05/08/22 11:51 Short CBC 05/08/22 05/09/22 Range/Units 11:51 05:38 WBC 8.0 14.8 H (4.5-11.0) K/mm3 Hgb 11.9 10.8 L (11.8-15.2) gm/dl Hct 37.1 34.6 L (35.5-45.6) % Plt Count 129 L 158 (140-440) K/mm3 BMP 05/08/22 05/09/22 11:51 05:38 Sodium 140 141 Potassium 4.4 4.6 Chloride 100.9 100.3 Carbon Dioxide 21 L 22 BUN 70 H 82 H Creatinine 14.8 H Glucose 141 H Calcium 7.9 L 7.8 L Liver Function 05/08/22 05/09/22 Range/Units 11:51 05:38 Total Bilirubin 0.30 0.30 (0.1-1.2) mg/dL AST 24 54 H (5-40) units/L ALT 19 37 (7-56) units/L Alkaline Phosphatase 108 115 (35-129) units/L Albumin 4.1 3.9 (3.9-5) g/dL Assessment and Plan Advance Directives: Yes (Full code) VTE prophylaxis?: Chemical Plan of care discussed with patient/family: Yes - Patient Problems (1) Volume overload Current Visit: Yes Status: Acute Plan to address problem: Volume overload secondary to missed hemodialysis Emergent hemodialysis Nephrology consulted (2) End-stage renal disease on hemodialysis Current Visit: Yes Status: Chronic Plan to address problem: Nephrology consulted (3) Elevated brain natriuretic peptide (BNP) level Current Visit: Yes Status: Acute Plan to address problem: BNP is around 94,000 Will get echocardiogram for ejection fraction (4) IDDM (insulin dependent diabetes mellitus) Current Visit: Yes Status: Chronic Plan to address problem: Continue home insulin and coverage Check hemoglobin A1c (5) Hypertension Current Visit: Yes Status: Chronic Qualifiers: Hypertension type: primary hypertension Qualified Code(s): I10 - Essential (primary) hypertension Plan to address problem: Continue antihypertensives and adjust medications (6) BPH (benign prostatic hyperplasia) Current Visit: Yes Status: Chronic Qualifiers: Lower urinary tract symptom presence: symptoms present Plan to address problem: Continue Flomax (7) Hyperlipidemia Current Visit: Yes Status: Chronic Qualifiers: Hyperlipidemia type: mixed hyperlipidemia Qualified Code(s): E78.2 - Mixed hyperlipidemia Plan to address problem: Continue statins (8) DVT prophylaxis Current Visit: Yes Status: Acute Plan to address problem: On heparin and GI prophylaxis (9) Advance care planning Current Visit: Yes Status: Acute Plan to address problem: Disease education conducted care plan discussed, diagnosis and prognosis discussed. Patient acknowledged understanding. Patient is full code. Care plan +30 minutes.
[2022-05-08] MEDS ORDERED: MORPHINE 2 MG/1 ML INJ IV PRN (17:47)
[2022-05-08] MEDS ORDERED: ONDANSETRON 4 MG/2 ML INJ IV PRN (17:47)
[2022-05-08] MEDS ORDERED: METOCLOPRAMIDE 10 MG/2 ML INJ IV PRN (17:47)
[2022-05-08] MEDS ORDERED: traMADol 50 MG TAB PO PRN (17:51)
[2022-05-08] MEDS ORDERED: [UNRECOGNIZED DRUG - REMARK] PO SCH (18:00)
[2022-05-08] MEDS ORDERED: NON-FORMULARY EACH (Losartan Potassium [Losartan Potassium] 100 MG Tablet) PO SCH (18:00)
[2022-05-08] MEDS ORDERED: SODIUM CHLORIDE 0.9% 100 ML IV PRN (18:24)
[2022-05-08] MEDS ORDERED: HEPARIN 10,000 UNIT/1 ML VIAL IV PRN (18:24)
[2022-05-08] MEDS: carvediloL 25 MG TAB PO SCH (18:39)
[2022-05-08] MEDS: amLODIPine 10 MG TAB PO SCH (18:39)
[2022-05-08] MEDS: LOSARTAN 50 MG TAB PO SCH (20:46)
[2022-05-08] MEDS: HEPARIN 5,000 UNIT/1 ML VIAL SUB-Q SCH (22:15)
[2022-05-08] MEDS: FOLIC ACID/VIT B COMP W-C 1 MG (RENAL CAPS) PO SCH (22:44)
[2022-05-08] MEDS: INSULIN NPH/REGULAR 70/30 INJ SUB-Q SCH (22:44)
[2022-05-09 00:57] LABS: Hepatitis B Surface Antigen Non-Reactive (Negative); Hepatitis C Virus Antibody Non-Reactive (NonReactive)
[2022-05-09 06:42] LABS: Basophils % (Auto) 0.1 % (0.0-1.8); Eosinophils # (Auto) 0.1 K/mm3 (0.0-0.4); Eosinophils % (Auto) 0.3 % (0.0-4.3); Hematocrit 34.6 % (35.5-45.6); Hemoglobin 10.8 gm/dl (11.8-15.2); Lymphocytes # (Auto) 0.6 K/mm3 (1.2-5.4); Lymphocytes % (Auto) 3.8 % (13.4-35.0); Mean Corpuscular HGB Conc 31 % (32-34); Mean Corpuscular Volume 92 fl (84-94); Monocytes # (Auto) 0.9 K/mm3 (0.0-0.8); Monocytes % (Auto) 6.2 % (0.0-7.3); Platelet Count 158 K/mm3 (140-440); Red Blood Count 3.76 M/mm3 (3.65-5.03); Red Cell Distribution Width 16.6 % (13.2-15.2)
[2022-05-09 07:08] LABS: Albumin 3.9 g/dL (3.9-5); Calcium 7.8 mg/dL (8.4-10.2)
[2022-05-09] MEDS ORDERED: DEXTROSE 50% IN WATER (25GM) 50 ML SYRINGE IV PRN ×2 (07:30→09:36)
--- NOTE | 2022-05-09 08:15 | Event Note ---
Date: 05/09/22 Patient dialyzes at [facility] under [facility] Will transfer Renal care
[2022-05-09] MEDS: amLODIPine 10 MG TAB PO SCH (09:23)
[2022-05-09] MEDS: LOSARTAN 50 MG TAB PO SCH (09:23)
[2022-05-09] MEDS: FINASTERIDE 5 MG TAB PO SCH (09:25)
[2022-05-09] MEDS: FOLIC ACID/VIT B COMP W-C 1 MG (RENAL CAPS) PO SCH (09:25)
[2022-05-09] MEDS: HEPARIN 5,000 UNIT/1 ML VIAL SUB-Q SCH ×2 (09:25→23:41)
[2022-05-09] MEDS: carvediloL 25 MG TAB PO SCH (09:25)
[2022-05-09] MEDS: GABAPENTIN 300 MG CAP PO SCH (09:25)
[2022-05-09] MEDS: INSULIN NPH/REGULAR 70/30 INJ SUB-Q SCH (09:26)
--- NOTE | 2022-05-09 09:41 | Progress Note ---
Assessment and Plan Assessment and plan: 61-year-old male with multiple medical comorbidities including congestive heart failure, end-stage renal disease on hemodialysis Monday, brought in by ems for evaluation of difficulty breathing and shortness of breath. Patient states he typically undergoes hemodialysis Monday, but his permacath "fell out" on Monday and he could not be replaced until 1 day ago. He states he did not undergo dialysis on Monday but subsequently underwent 2 to out of the 3 and half hours of dialysis. When asked why he did not complete his dialysis, patient states "I just could not take it anymore." He reports onset of shortness of breath today. He denies any chest pain. Of note patient has a right [id number] amputation. He denies any pain or swelling in his left lower extremity. No cough or URI symptoms. No chest pain. Remainder of review of systems negative. - Past Medical History --Previous Medical History?: Yes --Hypertension: Yes --Diabetes: Yes --Renal Disease: Yes (ESRD, H/D MWF) --Asthma: Yes - Surgical History --Additional Surgical History: left eye surgery. 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 We will send off C. difficile. Patient on Imodium. Patient did have chills and shaking chills following replacement of the permacath. The site of the permacath looks intact not indurated no erythema no warmth appreciated. I did have a side consult with ID and will go ahead and check cultures if cultures are negative and patient's respiratory status is improved can be discharged. He does not appear to be in any acute distress today. Anticipate discharge in 24 hours. If cultures become positive or patient develops a fever will obtain a formal ID consult and initiation of antibiotics at that time. Plan of care discussed with the patient and he is agreeable. He was hypoglycemic this morning per patient does not take insulin at home. will discontinue the bid insulin and monitor on sliding scale at moderate dose (1) Volume overload Current Visit: Yes Status: Acute Plan to address problem: Volume overload secondary to missed hemodialysis Emergent hemodialysis Nephrology consulted (2) End-stage renal disease on hemodialysis Current Visit: Yes Status: Chronic Plan to address problem: Nephrology consulted (3) Elevated brain natriuretic peptide (BNP) level Current Visit: Yes Status: Acute Plan to address problem: BNP is around 94,000 Will get echocardiogram for ejection fraction (4) IDDM (insulin dependent diabetes mellitus) Current Visit: Yes Status: Chronic Plan to address problem: Continue home insulin and coverage Check hemoglobin A1c (5) Hypertension Current Visit: Yes Status: Chronic Qualifiers: Hypertension type: primary hypertension Qualified Code(s): I10 - Essential (primary) hypertension Plan to address problem: Continue antihypertensives and adjust medications (6) BPH (benign prostatic hyperplasia) Current Visit: Yes Status: Chronic Qualifiers: Lower urinary tract symptom presence: symptoms present Plan to address problem: Continue Flomax (7) Hyperlipidemia Current Visit: Yes Status: Chronic Qualifiers: Hyperlipidemia type: mixed hyperlipidemia Qualified Code(s): E78.2 - Mixed hyperlipidemia Plan to address problem: Continue statins (8) DVT prophylaxis Current Visit: Yes Status: Acute Plan to address problem: On heparin and GI prophylaxis (9) Advance care planning Current Visit: Yes Status: Acute Plan to address problem: Disease education conducted care plan discussed, diagnosis and prognosis discussed. Patient acknowledged understanding. Patient is full code. Care plan +30 minutes. History Interval history: Patient seen and examined, no new chills, still with diarrhea, started today. Hospitalist Physical - Physical exam Narrative exam: VITAL SIGNS: Reviewed. GENERAL: The patient appears normally developed, Vital signs as documented. HEAD: No signs of head trauma. EYES: Pupils are equal. Extraocular motions intact. EARS: Hearing grossly intact. MOUTH: Oropharynx is normal. NECK: No adenopathy, no JVD. CHEST: Chest with clear breath sounds bilaterally. No wheezes, rales, or rhonchi. CARDIAC: Regular rate and rhythm. S1 and S2, without murmurs, gallops, or rubs. VASCULAR: No Edema. Peripheral pulses normal and equal in all extremities. ABDOMEN: Soft, non tender and non distended. No rebound or guarding, and no masses palpated. Bowel Sounds normal. MUSCULOSKELETAL: Good range of motion of all major joints. Extremities without clubbing, cyanosis or edema. NEUROLOGIC EXAM: Alert and oriented x 3 No focal sensory or strength deficits. Speech normal. Follows commands. PSYCHIATRIC: Mood normal. SKIN: detail exam as documented in skin assessment - Constitutional Vitals: Temp Pulse Resp BP Pulse Ox 98.0 F 79 16 113/56 96 05/09/22 08:43 05/09/22 04:33 05/09/22 08:43 05/09/22 09:25 05/09/22 04:33 General appearance: Present: mild distress, well-nourished Results - Labs CBC & Chem 7: 05/09/22 05:38 05/09/22 08:52 Labs: Laboratory Last Values WBC 14.8 K/mm3 (4.5-11.0) H 05/09/22 05:38 RBC 3.76 M/mm3 (3.65-5.03) 05/09/22 05:38 Hgb 10.8 gm/dl (11.8-15.2) L 05/09/22 05:38 Hct 34.6 % (35.5-45.6) L 05/09/22 05:38 MCV 92 fl (84-94) 05/09/22 05:38 MCH 29 pg (28-32) 05/09/22 05:38 MCHC 31 % (32-34) L 05/09/22 05:38 RDW 16.6 % (13.2-15.2) H 05/09/22 05:38 Plt Count 158 K/mm3 (140-440) 05/09/22 05:38 Lymph % (Auto) 3.8 % (13.4-35.0) L 05/09/22 05:38 [place] % (Auto) 6.2 % (0.0-7.3) 05/09/22 05:38 Eos % (Auto) 0.3 % (0.0-4.3) 05/09/22 05:38 Baso % (Auto) 0.1 % (0.0-1.8) 05/09/22 05:38 Lymph # (Auto) 0.6 K/mm3 (1.2-5.4) L 05/09/22 05:38 [place] # (Auto) 0.9 K/mm3 (0.0-0.8) H 05/09/22 05:38 Eos # (Auto) 0.1 K/mm3 (0.0-0.4) 05/09/22 05:38 Baso # (Auto) 0.0 K/mm3 (0.0-0.1) 05/09/22 05:38 Add Manual Diff Complete 05/08/22 11:51 Total Counted 100 05/08/22 11:51 Seg Neutrophils % 89.6 % (40.0-70.0) H 05/09/22 05:38 Seg Neuts % (Manual) 92.0 % (40.0-70.0) H 05/08/22 11:51 Band Neutrophils % 4.0 % 05/08/22 11:51 Lymphocytes % (Manual) 3.0 % (13.4-35.0) L 05/08/22 11:51 Reactive Lymphs % (Man) 0 % 05/08/22 11:51 Monocytes % (Manual) 1.0 % (0.0-7.3) 05/08/22 11:51 Eosinophils % (Manual) 0 % (0.0-4.3) 05/08/22 11:51 Basophils % (Manual) 0 % (0.0-1.8) 05/08/22 11:51 Metamyelocytes % 0 % 05/08/22 11:51 Myelocytes % 0 % 05/08/22 11:51 Promyelocytes % 0 % 05/08/22 11:51 Blast Cells % 0 % 05/08/22 11:51 Nucleated RBC % Not Reportable 05/08/22 11:51 Seg Neutrophils # 13.3 K/mm3 (1.8-7.7) H 05/09/22 05:38 Seg Neutrophils # Man 7.4 K/mm3 (1.8-7.7) 05/08/22 11:51 Band Neutrophils # 0.3 K/mm3 05/08/22 11:51 Lymphocytes # (Manual) 0.2 K/mm3 (1.2-5.4) L 05/08/22 11:51 Abs React Lymphs (Man) 0.0 K/mm3 05/08/22 11:51 Monocytes # (Manual) 0.1 K/mm3 (0.0-0.8) 05/08/22 11:51 Eosinophils # (Manual) 0.0 K/mm3 (0.0-0.4) 05/08/22 11:51 Basophils # (Manual) 0.0 K/mm3 (0.0-0.1) 05/08/22 11:51 Metamyelocytes # 0.0 K/mm3 05/08/22 11:51 Myelocytes # 0.0 K/mm3 05/08/22 11:51 Promyelocytes # 0.0 K/mm3 05/08/22 11:51 Blast Cells # 0.0 K/mm3 05/08/22 11:51 WBC Morphology Not Reportable 05/08/22 11:51 Hypersegmented Neuts Not Reportable 05/08/22 11:51 Hyposegmented Neuts Not Reportable 05/08/22 11:51 Hypogranular Neuts Not Reportable 05/08/22 11:51 Smudge Cells Not Reportable 05/08/22 11:51 Toxic Granulation Not Reportable 05/08/22 11:51 Toxic Vacuolation Not Reportable 05/08/22 11:51 Dohle Bodies Not Reportable 05/08/22 11:51 Pelger-Huet Anomaly Not Reportable 05/08/22 11:51 Patricia Rods Not Reportable 05/08/22 11:51 Platelet Estimate Consistent w auto 05/08/22 11:51 Clumped Platelets Not Reportable 05/08/22 11:51 Plt Clumps, EDTA Not Reportable 05/08/22 11:51 Large Platelets Not Reportable 05/08/22 11:51 Giant Platelets Not Reportable 05/08/22 11:51 Platelet Satelliting Not Reportable 05/08/22 11:51 Plt Morphology Comment Not Reportable 05/08/22 11:51 RBC Morphology Not Reportable 05/08/22 11:51 Dimorphic RBCs Not Reportable 05/08/22 11:51 Polychromasia Not Reportable 05/08/22 11:51 Hypochromasia Not Reportable 05/08/22 11:51 Poikilocytosis Not Reportable 05/08/22 11:51 Anisocytosis Few 05/08/22 11:51 Microcytosis Not Reportable 05/08/22 11:51 Macrocytosis Not Reportable 05/08/22 11:51 Spherocytes Not Reportable 05/08/22 11:51 Pappenheimer Bodies Not Reportable 05/08/22 11:51 Sickle Cells Not Reportable 05/08/22 11:51 Target Cells Not Reportable 05/08/22 11:51 Tear Drop Cells Not Reportable 05/08/22 11:51 Ovalocytes Not Reportable 05/08/22 11:51 Helmet Cells Not Reportable 05/08/22 11:51 [place] Bodies Not Reportable 05/08/22 11:51 [place] Rings Not Reportable 05/08/22 11:51 [place] Cells Not Reportable 05/08/22 11:51 Bite Cells Not Reportable 05/08/22 11:51 Crenated Cell Not Reportable 05/08/22 11:51 Elliptocytes Not Reportable 05/08/22 11:51 Acanthocytes (Spur) Not Reportable 05/08/22 11:51 Rouleaux Not Reportable 05/08/22 11:51 Hemoglobin C Crystals Not Reportable 05/08/22 11:51 Schistocytes Not Reportable 05/08/22 11:51 Malaria parasites Not Reportable 05/08/22 11:51 Matias Bodies Not Reportable 05/08/22 11:51 Hem Pathologist Commnt No 05/08/22 11:51 ABG pH 7.353 pH Units (7.350-7.450) 05/08/22 11:36 ABG pCO2 40.5 mm Hg 05/08/22 11:36 ABG pO2 52.2 mm Hg (80.0-90.0) L 05/08/22 11:36 ABG HCO3 22.0 mmol/L (20.0-26.0) 05/08/22 11:36 ABG O2 Saturation 87.0 % (95.0-99.0) L 05/08/22 11:36 ABG O2 Content 13.4 (0.0-44) 05/08/22 11:36 ABG Base Excess -3.3 mmol/L (-2.0-3.0) L 05/08/22 11:36 ABG Hemoglobin 11.2 gm/dl (14.0-18.0) L 05/08/22 11:36 ABG Carboxyhemoglobin 1.6 % (0.0-5.0) 05/08/22 11:36 ABG Methemoglobin 0.6 % (0.0-1.5) 05/08/22 11:36 Oxyhemoglobin 85.1 % (95.0-99.0) L 05/08/22 11:36 FiO2 21 % 05/08/22 11:36 Sodium 141 mmol/L (137-145) 05/09/22 05:38 Potassium 4.6 mmol/L (3.6-5.0) 05/09/22 05:38 Chloride 100.3 mmol/L (98-107) 05/09/22 05:38 Carbon Dioxide 22 mmol/L (22-30) 05/09/22 05:38 Anion Gap 23 mmol/L 05/09/22 05:38 BUN 82 mg/dL (9-20) H 05/09/22 05:38 Creatinine 16.4 mg/dL (0.8-1.3) H 05/09/22 05:38 Estimated GFR 4 ml/min 05/09/22 05:38 BUN/Creatinine Ratio 5 % 05/09/22 05:38 Glucose 23 mg/dL (75-100) L* 05/09/22 05:38 POC Glucose 204 mg/dL (70-105) H 05/08/22 21:03 Calcium 7.8 mg/dL (8.4-10.2) L 05/09/22 05:38 Total Bilirubin 0.30 mg/dL (0.1-1.2) 05/09/22 05:38 AST 54 units/L (5-40) H 05/09/22 05:38 ALT 37 units/L (7-56) 05/09/22 05:38 Alkaline Phosphatase 115 units/L (35-129) 05/09/22 05:38 NT-Pro-B Natriuret Pep 02220 pg/mL (0-900) H 05/08/22 11:51 Total Protein 6.5 g/dL (6.3-8.2) 05/09/22 05:38 Albumin 3.9 g/dL (3.9-5) 05/09/22 05:38 Albumin/Globulin Ratio 1.5 % 05/09/22 05:38 Hepatitis A IgM Ab Non-reactive (NonReactive) 05/09/22 00:07 Hep Bs Antigen Non-reactive (Negative) 05/09/22 00:07 Hep B Core IgM Ab Non-reactive (NonReactive) 05/09/22 00:07 Hepatitis C Antibody Non-reactive (NonReactive) 05/09/22 00:07 Pham/IV: Voiding Method Urinal Active Medications - Current Medications Current Medications: Generic Name Dose Route Start Last Admin Trade Name Freq PRN Reason Stop Dose Admin Acetaminophen 650 mg 05/08/22 17:47 Acetaminophen 325 Mg Tab PO Q4H PRN Pain MILD(1-3)/Fever >100.5/NUR Amlodipine Besylate 10 mg 05/08/22 18:00 05/09/22 09:23 Amlodipine 10 Mg Tab PO Not Given DAILY [facility] Atorvastatin Calcium 40 mg 05/08/22 22:00 05/08/22 22:14 Atorvastatin 40 Mg Tab PO 40 mg QHS ZAHIRA Administration Carvedilol 25 mg 05/08/22 18:00 05/09/22 09:25 Carvedilol 25 Mg Tab PO 25 mg DAILY ZAHIRA Administration Dextrose 50 ml 05/09/22 09:36 Dextrose 50% In Water (25gm) 50 Ml Syringe IV Q30MIN PRN Hypoglycemia Protocol Finasteride 5 mg 05/09/22 10:00 05/09/22 09:25 Finasteride 5 Mg Tab PO 5 mg QDAY ZAHIRA Administration Gabapentin 300 mg 05/09/22 10:00 05/09/22 09:25 Gabapentin 300 Mg Cap PO 300 mg DAILY ZAHIRA Administration Heparin Sodium (Porcine) 5,000 unit 05/08/22 22:00 05/09/22 09:25 Heparin 5,000 Unit/1 Ml Vial SUB-Q 5,000 unit Q12HR ZAHIRA Administration Heparin Sodium (Porcine) 5,000 unit 05/08/22 18:24 Heparin 10,000 Unit/1 Ml Vial IV FREDDIE PRN hemodialysis Sodium Chloride 100 mls @ 999 mls/hr 05/08/22 18:24 Nacl 0.9% IV FREDDIE PRN Hypotension Insulin Human Lispro 0 unit 05/09/22 11:30 Insulin Lispro 100 Unit/Ml SUB-Q ACHS [facility] Protocol Losartan Potassium 100 mg 05/08/22 16:00 05/09/22 09:23 Losartan 50 Mg Tab PO Not Given QDAY [facility] Metoclopramide HCl 10 mg 05/08/22 17:47 Metoclopramide 10 Mg/2 Ml Inj IV Q6H PRN Nausea And Vomiting Morphine Sulfate 2 mg 05/08/22 17:47 Morphine 2 Mg/1 Ml Inj IV Q4H PRN Pain, Moderate (4-6) Multivit/Ca Carb/B Cmplx/FA/Prenat 1 cap 05/08/22 19:00 05/09/22 09:25 Folic Acid/Vit B Comp W-C 1 Mg (Renal Caps) PO 1 cap QDAY [facility] Administration Ondansetron HCl 4 mg 05/08/22 17:47 Ondansetron 4 Mg/2 Ml Inj IV Q8H PRN Nausea And Vomiting Oxycodone/Acetaminophen 1 tab 05/08/22 17:47 Oxycodone /Acetaminophen 5-325mg Tab PO Q6H PRN Pain, Moderate (4-6) Sodium Chloride 10 ml 05/08/22 22:00 05/09/22 09:27 Sodium Chloride 0.9% 10 Ml Flush Syringe IV 10 ml BID ZAHIRA Administration Sodium Chloride 10 ml 05/08/22 17:47 Sodium Chloride 0.9% 10 Ml Flush Syringe IV PRN PRN LINE FLUSH Tramadol HCl 50 mg 05/08/22 17:51 Tramadol 50 Mg Tab PO PRN PRN Pain, Moderate (4-6)
[2022-05-09] MEDS ORDERED: LOPERAMIDE 2 MG CAP PO PRN (10:00)
--- NOTE | 2022-05-09 11:53 | Progress Note ---
Assessment and Plan End-stage renal disease on hemodialysis Fluid overload Essential hypertension Anemia of ESRD Hyperphosphatemia Hyperparathyroidism Hemodialysis today Assess daily for needs for additional sessions of dialysis Continue antihypertensives Hold antihypertensives on hemodialysis days for systolics less than 160 Epogen with HD as needed Renally dose medications ESRD diet with 1.2-1. 4 g/kg/d protein intake Dialyzes at [facility] outpatient Subjective Date of service: 05/09/22 Principal diagnosis: Shortness of breath Interval history: Resting in bed, awaiting dialysis. Objective - Exam Narrative Exam: Constitutional: no acute distress Head: NC/AT Neck: supple Lungs: clear to auscultation CV: RRR, no M/R/G Abdomen: soft, non-tender, bowel sounds present Back: nontender Extremities: no edema, pulses WNL Skin: intact Neuro: no focal deficits, alert and oriented x4 - Vital Signs Vital signs: Vital Signs - 12hr 05/08/22 05/09/22 05/09/22 23:51 00:00 00:10 Temperature 98.0 F Pulse Rate 74 117 H 115 H Respiratory 18 12 16 Rate Blood Pressure Blood Pressure 121/58 [Left] O2 Sat by Pulse 91 97 97 Oximetry 05/09/22 05/09/22 05/09/22 00:20 00:30 00:40 Temperature Pulse Rate 116 H 115 H 117 H Respiratory 13 14 24 Rate Blood Pressure Blood Pressure [Left] O2 Sat by Pulse 96 96 97 Oximetry 05/09/22 05/09/22 05/09/22 00:50 01:00 01:10 Temperature Pulse Rate 118 H 119 H 119 H Respiratory 19 12 13 Rate Blood Pressure Blood Pressure [Left] O2 Sat by Pulse 97 99 97 Oximetry 05/09/22 05/09/22 05/09/22 01:20 01:30 01:40 Temperature Pulse Rate 119 H 115 H Respiratory 16 18 Rate Blood Pressure Blood Pressure [Left] O2 Sat by Pulse 97 98 Oximetry 05/09/22 05/09/22 05/09/22 01:50 02:00 02:10 Temperature Pulse Rate 114 H 113 H 112 H Respiratory 12 14 12 Rate Blood Pressure Blood Pressure [Left] O2 Sat by Pulse Oximetry 05/09/22 05/09/22 05/09/22 02:20 02:30 02:40 Temperature Pulse Rate 113 H 113 H 112 H Respiratory 12 12 12 Rate Blood Pressure Blood Pressure [Left] O2 Sat by Pulse Oximetry 05/09/22 05/09/22 05/09/22 02:50 03:00 03:10 Temperature Pulse Rate 112 H 112 H 112 H Respiratory 14 15 12 Rate Blood Pressure Blood Pressure [Left] O2 Sat by Pulse Oximetry 05/09/22 05/09/22 05/09/22 03:20 03:30 03:40 Temperature Pulse Rate 113 H 114 H 112 H Respiratory 14 9 L 14 Rate Blood Pressure Blood Pressure [Left] O2 Sat by Pulse Oximetry 05/09/22 05/09/22 05/09/22 03:50 04:33 08:43 Temperature 98.4 F 98.0 F Pulse Rate 112 H 79 Respiratory 15 18 16 Rate Blood Pressure 108/59 113/56 Blood Pressure [Left] O2 Sat by Pulse 96 Oximetry 05/09/22 09:25 Temperature Pulse Rate Respiratory Rate Blood Pressure 113/56 Blood Pressure [Left] O2 Sat by Pulse Oximetry - Lab 05/09/22 05:38 05/09/22 08:52 Most recent lab results ABG pH 7.353 pH Units (7.350-7.450) 05/08/22 11:36 ABG pCO2 40.5 mm Hg 05/08/22 11:36 ABG pO2 52.2 mm Hg (80.0-90.0) L 05/08/22 11:36 ABG HCO3 22.0 mmol/L (20.0-26.0) 05/08/22 11:36 ABG O2 Saturation 87.0 % (95.0-99.0) L 05/08/22 11:36 Calcium 7.8 mg/dL (8.4-10.2) L 05/09/22 05:38 Medications & Allergies - Medications Allergies/Adverse Reactions: Allergies No Known Allergies Allergy (Verified 05/27/19 17:20) Home Medications: Home Medications Medication Instructions Recorded Confirmed Last Taken Type Finasteride 5 mg PO QDAY 05/27/19 05/09/22 05/27/19 08:00 History Vit B Comp No.3/Folic/C/Biotin 1 tab PO QDAY 05/27/19 05/09/22 05/08/22 History [[facility]rica-[facility]rella Rx Tablet] carvediloL [Coreg] 25 mg PO BID 05/27/19 05/09/2205/27/19 08:00 History Aspirin [Aspirin BABY CHEW TAB] 81 mg PO DAILY 05/09/22 05/09/22 Unknown History AtorvaSTATin [Lipitor] 40 mg PO DAILY 05/09/22 05/09/22 Unknown History Cetirizine HCl [Allergy] 10 mg PO DAILY 05/09/22 05/09/22 Unknown History Hydralazine HCl 50 mg PO BID 05/09/22 05/09/22 Unknown History cloNIDine [Catapres] 0.1 mg PO BID 05/09/22 05/09/22 Unknown History Active Medications: Generic Name Dose Route Start Last Admin Trade Name Freq PRN Reason Stop Dose Admin Acetaminophen 650 mg 05/08/22 17:47 Acetaminophen 325 Mg Tab PO Q4H PRN Pain MILD(1-3)/Fever >100.5/NUR Amlodipine Besylate 10 mg 05/08/22 18:00 05/09/22 09:23 Amlodipine 10 Mg Tab PO Not Given DAILY [facility] Atorvastatin Calcium 40 mg 05/08/22 22:00 05/08/22 22:14 Atorvastatin 40 Mg Tab PO 40 mg QHS ZAHIRA Administration Carvedilol 25 mg 05/08/22 18:00 05/09/22 09:25 Carvedilol 25 Mg Tab PO 25 mg DAILY ZAHIRA Administration Dextrose 50 ml 05/09/22 09:36 Dextrose 50% In Water (25gm) 50 Ml Syringe IV Q30MIN PRN Hypoglycemia Protocol Finasteride 5 mg 05/09/22 10:00 05/09/22 09:25 Finasteride 5 Mg Tab PO 5 mg QDAY ZAHIRA Administration Gabapentin 300 mg 05/09/22 10:00 05/09/22 09:25 Gabapentin 300 Mg Cap PO 300 mg DAILY ZAHIRA Administration Heparin Sodium (Porcine) 5,000 unit 05/08/22 22:00 05/09/22 09:25 Heparin 5,000 Unit/1 Ml Vial SUB-Q 5,000 unit Q12HR ZAHIRA Administration Heparin Sodium (Porcine) 5,000 unit 05/08/22 18:24 Heparin 10,000 Unit/1 Ml Vial IV FREDDIE PRN hemodialysis Sodium Chloride 100 mls @ 999 mls/hr 05/08/22 18:24 Nacl 0.9% IV FREDDIE PRN Hypotension Insulin Human Lispro 0 unit 05/09/22 11:30 Insulin Lispro 100 Unit/Ml SUB-Q ACHS ZAHIRA Protocol Loperamide HCl 2 mg 05/09/22 10:00 05/09/22 10:15 Loperamide 2 Mg Cap PO 2 mg Q2H PRN Administration Diarrhea Losartan Potassium 100 mg 05/08/22 16:00 05/09/22 09:23 Losartan 50 Mg Tab PO Not Given QDAY ZAHIRA Metoclopramide HCl 10 mg 05/08/22 17:47 Metoclopramide 10 Mg/2 Ml Inj IV Q6H PRN Nausea And Vomiting Morphine Sulfate 2 mg 05/08/22 17:47 Morphine 2 Mg/1 Ml Inj IV Q4H PRN Pain, Moderate (4-6) Multivit/Ca Carb/B Cmplx/FA/Prenat 1 cap 05/08/22 19:00 05/09/22 09:25 Folic Acid/Vit B Comp W-C 1 Mg (Renal Caps) PO 1 cap QDAY ZAHIRA Administration Ondansetron HCl 4 mg 05/08/22 17:47 Ondansetron 4 Mg/2 Ml Inj IV Q8H PRN Nausea And Vomiting Oxycodone/Acetaminophen 1 tab 05/08/22 17:47 Oxycodone /Acetaminophen 5-325mg Tab PO Q6H PRN Pain, Moderate (4-6) Sodium Chloride 10 ml 05/08/22 22:00 05/09/22 09:27 Sodium Chloride 0.9% 10 Ml Flush Syringe IV 10 ml BID ZAHIRA Administration Sodium Chloride 10 ml 05/08/22 17:47 Sodium Chloride 0.9% 10 Ml Flush Syringe IV PRN PRN LINE FLUSH Tramadol HCl 50 mg 05/08/22 17:51 Tramadol 50 Mg Tab PO PRN PRN Pain, Moderate (4-6)
[2022-05-09] MEDS: INSULIN LISPRO 100 UNIT/ML SUB-Q SCH ×3 (12:30→23:42)
[2022-05-09] MEDS: ACETAMINOPHEN 325 MG TAB PO PRN (16:58)
[2022-05-09] MEDS: oxyCODONE /ACETAMINOPHEN 5-325MG TAB PO PRN (18:56)
[2022-05-10 04:51] LABS: Hematocrit 37.2 % (35.5-45.6); Hemoglobin 11.9 gm/dl (11.8-15.2); Mean Corpuscular HGB Conc 32 % (32-34); Mean Corpuscular Volume 92 fl (84-94); Platelet Count 133 K/mm3 (140-440); Red Blood Count 4.05 M/mm3 (3.65-5.03); Red Cell Distribution Width 16.2 % (13.2-15.2)
[2022-05-10 05:11] LABS: Calcium 7.7 mg/dL (8.4-10.2)
[2022-05-10] MEDS: INSULIN LISPRO 100 UNIT/ML SUB-Q SCH ×4 (08:00→21:44)
--- NOTE | 2022-05-10 09:50 | Discharge Summary ---
Providers - Providers Date of Admission: 05/08/22 18:22 Date of discharge: 05/10/22 Attending physician: PACHECO RUIZ 05/09/22 08:15 Consult to Physician [CONS] Routine Comment: Consulting Provider: JING KING Physician Instructions: Reason For Exam: ESRD Primary care physician: JAVIER BLANTON Hospitalization Reason for admission: Missed HD Condition: Stable Hospital course: 61-year-old male with a history of ESRD on hemodialysis M,W,F and congestive heart failure presented through the emergency department with 1 missed session of hemodialysis secondary to malfunctioning PermCath. The patient was admitted with diagnosis below Volume overload ESRD on HD with missed HD Diabetes mellitus type 2, insulin-dependent Hypertension BPH Hyperlipidemia Anemia of ESRD 05/09: Patient with a reported diarrhea. We will send off C. difficile. Patient on Imodium. Patient did have chills and shaking chills following replacement of the permacath. The site of the permacath looks intact not indurated no erythema no warmth appreciated. I did have a side consult with ID and will go ahead and check cultures if cultures are negative and patient's respiratory status is improved can be discharged. He does not appear to be in any acute distress today. Anticipate discharge in 24 hours. If cultures become positive or patient develops a fever will obtain a formal ID consult and initiation of antibiotics at that time. 05/10/2022. Patient has had no fevers and we will plan for discharge today. Patient reports no further diarrhea. Dedicated discharge time 32 minutes Disposition: 01 HOME / SELF CARE / HOMELESS Final Discharge Diagnosis (Prints w/discharge instructions): Volume overload. ESRD on HD with missed HD. Diabetes mellitus type 2, insulin-dependent. Hypertension. BPH. Hyperlipidemia. Anemia of ESRD Core Measure Documentation - Palliative Care Palliative Care/ Comfort Measures: Not Applicable - Core Measures Any of the following diagnoses?: none Exam - Constitutional Vitals: Temp Pulse Resp BP Pulse Ox 99.0 F 103 H 18 144/88 91 05/10/22 08:23 05/10/22 08:23 05/10/22 05:21 05/10/22 08:23 05/10/22 08:23 General appearance: Present: no acute distress, well-nourished - EENT Eyes: Present: PERRL ENT: hearing intact, clear oral mucosa - Neck Neck: Present: supple, normal ROM - Respiratory Respiratory effort: normal Respiratory: bilateral: CTA - Cardiovascular Heart Sounds: Present: S1 & S2. Absent: rub, click - Extremities Extremities: pulses symmetrical, No edema Peripheral Pulses: within normal limits - Abdominal General gastrointestinal: Present: soft, non-tender, non-distended, normal bowel sounds Male genitourinary: Present: normal - Integumentary Integumentary: Present: clear, warm, dry - Musculoskeletal Musculoskeletal: gait normal, strength equal bilaterally - Psychiatric Psychiatric: appropriate mood/affect, intact judgment & insight - Neurologic Neurologic: CNII-XII intact, moves all extremities Plan Activity: advance as tolerated Weight Bearing Status: Weight Bear as Tolerated Diet: renal Follow up with: JAVIER BLANTON MD [Primary Care Provider] - 3-5 Days
--- NOTE | 2022-05-10 09:53 | Electrocardiograph Report ---
[facility] Test Date: 2022-05-08 Test Time: 10:59:09 Pat Name: JAZMINE LOTT Department: Room: A467 1 Gender: M Title Checker: WILLY : 1960 Requested By: CAROLINE VELAZQUEZ Order Number: [id number] Reading MD: Theodore Liao Measurements Intervals [place] Rate: 109 P: 52 [place]: 168 QRS: -25 QRSD: 93 T: 128 QT: 338 QTc: 455 Interpretive Statements Sinus tachycardia Left atrial enlargement nonspecific st-t Abnormal T, consider ischemia, lateral leads No previous ECG available for comparison Electronically Signed On 05-10-2022 9:53:54 EDT by Theodore Liao
[2022-05-10] MEDS: LOSARTAN 50 MG TAB PO SCH (10:35)
[2022-05-10] MEDS: GABAPENTIN 300 MG CAP PO SCH (10:35)
[2022-05-10] MEDS: FINASTERIDE 5 MG TAB PO SCH (10:35)
[2022-05-10] MEDS: amLODIPine 10 MG TAB PO SCH (10:35)
[2022-05-10] MEDS: FOLIC ACID/VIT B COMP W-C 1 MG (RENAL CAPS) PO SCH (10:35)
[2022-05-10] MEDS: carvediloL 25 MG TAB PO SCH (10:35)
[2022-05-10] MEDS: HEPARIN 5,000 UNIT/1 ML VIAL SUB-Q SCH ×3 (10:36→22:30)
[2022-05-10] MEDS: oxyCODONE /ACETAMINOPHEN 5-325MG TAB PO PRN ×2 (11:38→19:28)
[2022-05-10] MEDS ORDERED: VANCOMYCIN PHARMACY TO DOSE IV SCH (13:00)
[2022-05-10] MEDS ORDERED: VANCOMYCIN 1,750 MG in SODIUM CHLORIDE 0.9% 500 ML 500 ML IV SCH (13:30)
--- NOTE | 2022-05-10 18:10 | Progress Note ---
Assessment and Plan End-stage renal disease on hemodialysis Fluid overload Essential hypertension Anemia of ESRD Hyperphosphatemia Hyperparathyroidism Hemodialysis MWF, refused session ordered today for additional clearance Assess daily for needs for additional sessions of dialysis Continue antihypertensives Hold antihypertensives on hemodialysis days for systolics less than 160 Epogen with HD as needed Renally dose medications ESRD diet with 1.2-1. 4 g/kg/d protein intake Dialyzes at [facility] outpatient Subjective Date of service: 05/10/22 Principal diagnosis: Shortness of breath Interval history: Resting in bed, awaiting dialysis. Objective - Exam Narrative Exam: Constitutional: no acute distress Head: NC/AT Neck: supple Lungs: clear to auscultation CV: RRR, no M/R/G Abdomen: soft, non-tender, bowel sounds present Back: nontender Extremities: no edema, pulses WNL Skin: intact Neuro: no focal deficits, alert and oriented x4 - Vital Signs Vital signs: Vital Signs - 12hr 05/10/22 05/10/22 05/10/22 08:23 12:31 12:41 Temperature 99.0 F 98.9 F 98.3 F Pulse Rate 103 H 88 72 Blood Pressure 144/88 97/53 103/52 O2 Sat by Pulse 91 97 90 Oximetry - Lab 05/10/22 04:32 05/10/22 04:32 Most recent lab results ABG pH 7.353 pH Units (7.350-7.450) 05/08/22 11:36 ABG pCO2 40.5 mm Hg 05/08/22 11:36 ABG pO2 52.2 mm Hg (80.0-90.0) L 05/08/22 11:36 ABG HCO3 22.0 mmol/L (20.0-26.0) 05/08/22 11:36 ABG O2 Saturation 87.0 % (95.0-99.0) L 05/08/22 11:36 Calcium 7.7 mg/dL (8.4-10.2) L 05/10/22 04:32 Medications & Allergies - Medications Allergies/Adverse Reactions: Allergies No Known Allergies Allergy (Verified 05/27/19 17:20) Home Medications: Home Medications Medication Instructions Recorded Confirmed Last Taken Type Finasteride 5 mg PO QDAY 05/27/19 05/09/22 05/27/19 08:00 History Vit B Comp No.3/Folic/C/Biotin 1 tab PO QDAY 05/27/19 05/09/22 05/08/22 History [Jerrica-Estrella Rx Tablet] carvediloL [Coreg] 25 mg PO BID 05/27/19 05/09/22 05/27/19 08:00 History Aspirin [Aspirin BABY CHEW TAB] 81 mg PO DAILY 05/09/22 05/09/22 Unknown History AtorvaSTATin [Lipitor] 40 mg PO DAILY 05/09/22 05/09/22 Unknown History Cetirizine HCl [Allergy] 10 mg PO DAILY 05/09/22 05/09/22 Unknown History Hydralazine HCl 50 mg PO BID 05/09/22 05/09/22 Unknown History cloNIDine [Catapres] 0.1 mg PO BID 05/09/22 05/09/22 Unknown History AtorvaSTATin [Lipitor] 40 mg PO QHS tablet 05/10/22 Unknown Rx Folic Acid/Vit B Comp W-C [Renal 1 cap PO QDAY capsule 05/10/22 Unknown Rx Caps] Losartan [Cozaar] 100 mg PO QDAY tablet 05/10/22 Unknown Rx amLODIPine 10 mg PO DAILY tablet 05/10/22 Unknown Rx Active Medications: Generic Name Dose Route Start Last Admin Trade Name Freq PRN Reason Stop Dose Admin Acetaminophen 650 mg 05/08/22 17:47 05/09/22 16:58 Acetaminophen 325 Mg Tab PO 650 mg Q4H PRN Administration Pain MILD(1-3)/Fever >100.5/NUR Amlodipine Besylate 10 mg 05/08/22 18:00 05/10/22 10:35 Amlodipine 10 Mg Tab PO 10 mg DAILY ZAHIRA Administration Atorvastatin Calcium 40 mg 05/08/22 22:00 05/09/22 23:41 Atorvastatin 40 Mg Tab PO 40 mg QHS ZAHIRA Administration Carvedilol 25 mg 05/08/22 18:00 05/10/22 10:35 Carvedilol 25 Mg Tab PO 25 mg DAILY ZAHIRA Administration Dextrose 50 ml 05/09/22 09:36 Dextrose 50% In Water (25gm) 50 Ml Syringe IV Q30MIN PRN Hypoglycemia Protocol Finasteride 5 mg 05/09/22 10:00 05/10/22 10:35 Finasteride 5 Mg Tab PO 5 mg QDAY ZAHIRA Administration Gabapentin 300 mg 05/09/22 10:00 05/10/22 10:35 Gabapentin 300 Mg Cap PO 300 mg DAILY ZAHIRA Administration Heparin Sodium (Porcine) 5,000 unit 05/08/22 22:00 05/10/22 10:38 Heparin 5,000 Unit/1 Ml Vial SUB-Q Not Given Q12HR [facility] Heparin Sodium (Porcine) 5,000 unit 05/08/22 18:24 Heparin 10,000 Unit/1 Ml Vial IV FREDDIE PRN hemodialysis Sodium Chloride 100 mls @ 999 mls/hr 05/08/22 18:24 Nacl 0.9% IV FREDDIE PRN Hypotension Insulin Human Lispro 0 unit 05/09/22 11:30 05/10/22 16:39 Insulin Lispro 100 Unit/Ml SUB-Q Not Given ACHS [facility] Protocol Loperamide HCl 2 mg 05/09/22 10:00 05/09/22 10:15 Loperamide 2 Mg Cap PO 2 mg Q2H PRN Administration Diarrhea Losartan Potassium 100 mg 05/08/22 16:00 05/10/22 10:35 Losartan 50 Mg Tab PO 100 mg QDAY ZAHIRA Administration Metoclopramide HCl 10 mg 05/08/22 17:47 Metoclopramide 10 Mg/2 Ml Inj IV Q6H PRN Nausea And Vomiting Morphine Sulfate 2 mg 05/08/22 17:47 05/09/22 23:40 Morphine 2 Mg/1 Ml Inj IV 2 mg Q4H PRN Administration Pain, Moderate (4-6) Multivit/Ca Carb/B Cmplx/FA/Prenat 1 cap 05/08/22 19:00 05/10/22 10:35 Folic Acid/Vit B Comp W-C 1 Mg (Renal Caps) PO 1 cap QDAY ZAHIRA Administration Ondansetron HCl 4 mg 05/08/22 17:47 Ondansetron 4 Mg/2 Ml Inj IV Q8H PRN Nausea And Vomiting Oxycodone/Acetaminophen 1 tab 05/08/22 17:47 05/10/22 11:38 Oxycodone /Acetaminophen 5-325mg Tab PO 1 tab Q6H PRN Administration Pain, Moderate (4-6) Sodium Chloride 10 ml 05/08/22 22:00 05/10/22 10:39 Sodium Chloride 0.9% 10 Ml Flush Syringe IV 10 ml BID ZAHIRA Administration Sodium Chloride 10 ml 05/08/22 17:47 05/10/22 15:21 Sodium Chloride 0.9% 10 Ml Flush Syringe IV 10 ml PRN PRN Administration LINE FLUSH Tramadol HCl 50 mg 05/08/22 17:51 Tramadol 50 Mg Tab PO PRN PRN Pain, Moderate (4-6)
[2022-05-11] MEDS ORDERED: METOCLOPRAMIDE 10 MG/2 ML INJ IV PRN (07:00)
[2022-05-11] MEDS: FOLIC ACID/VIT B COMP W-C 1 MG (RENAL CAPS) PO SCH (10:04)
[2022-05-11] MEDS: oxyCODONE /ACETAMINOPHEN 5-325MG TAB PO PRN (10:04)
[2022-05-11] MEDS: FINASTERIDE 5 MG TAB PO SCH (10:04)
[2022-05-11] MEDS: HEPARIN 5,000 UNIT/1 ML VIAL SUB-Q SCH ×2 (10:05→21:13)
[2022-05-11] MEDS: GABAPENTIN 300 MG CAP PO SCH (10:05)
[2022-05-11] MEDS: INSULIN LISPRO 100 UNIT/ML SUB-Q SCH ×4 (10:07→21:14)
[2022-05-11] MEDS: carvediloL 25 MG TAB PO SCH (17:21)
[2022-05-11] MEDS: amLODIPine 10 MG TAB PO SCH (17:21)
[2022-05-11] MEDS: LOSARTAN 50 MG TAB PO SCH (17:22)
--- NOTE | 2022-05-11 17:30 | Progress Note ---
Assessment and Plan End-stage renal disease on hemodialysis Fluid overload Essential hypertension Anemia of ESRD Hyperphosphatemia Hyperparathyroidism Continue hemodialysis MWF Assess daily for needs for additional sessions of dialysis Continue antihypertensives Hold antihypertensives on hemodialysis days for systolics less than 160 Epogen with HD as needed Renally dose medications ESRD diet with 1.2-1. 4 g/kg/d protein intake Dialyzes at [facility] outpatient Subjective Date of service: 05/11/22 Principal diagnosis: Shortness of breath Interval history: Sitting up in bed Vitals, labs and I/os reviewed Interdisciplinary notes and consults reviewed Objective - Exam Narrative Exam: Constitutional: no acute distress Head: NC/AT Neck: supple Lungs: clear to auscultation CV: RRR, no M/R/G Abdomen: soft, non-tender, bowel sounds present Back: nontender Extremities: no edema, pulses WNL Skin: intact Neuro: no focal deficits, alert and oriented x4 - Vital Signs Vital signs: Vital Signs - 12hr 05/11/22 05/11/22 05/11/22 08:00 08:08 11:47 Temperature 98.0 F 98.0 F Pulse Rate 101 H 94 H Respiratory 18 18 Rate Blood Pressure 144/89 144/91 O2 Sat by Pulse 98 87 97 Oximetry O2 Sat by Pulse Oximetry [ Bilateral] 05/11/22 05/11/22 05/11/22 12:50 13:00 13:15 Temperature 98.5 F Pulse Rate 87 87 87 Respiratory 16 Rate Blood Pressure 160/94 160/94 160/95 O2 Sat by Pulse Oximetry O2 Sat by Pulse 99 Oximetry [ Bilateral] 05/11/22 05/11/22 05/11/22 13:30 13:45 14:00 Temperature Pulse Rate 85 87 85 Respiratory Rate Blood Pressure 163/96 165/95 160/96 O2 Sat by Pulse Oximetry O2 Sat by Pulse Oximetry [ Bilateral] 05/11/22 05/11/22 05/11/22 14:15 14:30 14:45 Temperature Pulse Rate 84 85 86 Respiratory Rate Blood Pressure 161/101 167/98 167/98 O2 Sat by Pulse Oximetry O2 Sat by Pulse Oximetry [ Bilateral] 05/11/22 05/11/22 05/11/22 15:00 15:15 15:30 Temperature Pulse Rate 92 H 86 90 Respiratory Rate Blood Pressure 199/113 161/96 175/104 O2 Sat by Pulse Oximetry O2 Sat by Pulse Oximetry [ Bilateral] 05/11/22 05/11/22 05/11/22 15:45 16:00 16:15 Temperature Pulse Rate 90 87 98 H Respiratory Rate Blood Pressure 140/100 173/101 194/100 O2 Sat by Pulse Oximetry O2 Sat by Pulse Oximetry [ Bilateral] 05/11/22 05/11/22 05/11/22 16:30 16:51 17:24 Temperature 98.5 F 97.8 F Pulse Rate 100 H 100 H 102 H Respiratory 16 18 Rate Blood Pressure 190/100 194/101 185/110 O2 Sat by Pulse 95 Oximetry O2 Sat by Pulse 99 Oximetry [ Bilateral] - Lab 05/10/22 04:32 05/10/22 04:32 Most recent lab results ABG pH 7.353 pH Units (7.350-7.450) 05/08/22 11:36 ABG pCO2 40.5 mm Hg 05/08/22 11:36 ABG pO2 52.2 mm Hg (80.0-90.0) L 05/08/22 11:36 ABG HCO3 22.0 mmol/L (20.0-26.0) 05/08/22 11:36 ABG O2 Saturation 87.0 % (95.0-99.0) L 05/08/22 11:36 Calcium 7.7 mg/dL (8.4-10.2) L 05/10/22 04:32 Medications & Allergies - Medications Allergies/Adverse Reactions: Allergies No Known Allergies Allergy (Verified 05/27/19 17:20) Home Medications: Home Medications Medication Instructions Recorded Confirmed Last Taken Type Finasteride 5 mg PO QDAY 05/27/19 05/09/22 05/27/19 08:00 History Vit B Comp No.3/Folic/C/Biotin 1 tab PO QDAY 05/27/19 05/09/22 05/08/22 History [Jerrica-Estrella Rx Tablet] carvediloL [Coreg] 25 mg PO BID 05/27/19 05/09/22 05/27/19 08:00 History Aspirin [Aspirin BABY CHEW TAB] 81 mg PO DAILY 05/09/22 05/09/22 Unknown History AtorvaSTATin [Lipitor] 40 mg PO DAILY 05/09/22 05/09/22 Unknown History Cetirizine HCl [Allergy] 10 mg PO DAILY 05/09/22 05/09/22 Unknown History Hydralazine HCl 50 mg PO BID 05/09/22 05/09/22 Unknown History cloNIDine [Catapres] 0.1 mg PO BID 05/09/22 05/09/22 Unknown History AtorvaSTATin [Lipitor] 40 mg PO QHS tablet 05/10/22 Unknown Rx Folic Acid/Vit B Comp W-C [Renal 1 cap PO QDAY capsule 05/10/22 Unknown Rx Caps] Losartan [Cozaar] 100 mg PO QDAY tablet 05/10/22 Unknown Rx amLODIPine 10 mg PO DAILY tablet 05/10/22 Unknown Rx Active Medications: Generic Name Dose Route Start Last Admin Trade Name Freq PRN Reason Stop Dose Admin Acetaminophen 650 mg 05/08/22 17:47 05/09/22 16:58 Acetaminophen 325 Mg Tab PO 650 mg Q4H PRN Administration Pain MILD(1-3)/Fever >100.5/NUR Amlodipine Besylate 10 mg 05/08/22 18:00 05/11/22 17:21 Amlodipine 10 Mg Tab PO 10 mg DAILY ZAHIRA Administration Atorvastatin Calcium 40 mg 05/08/22 22:00 05/10/22 22:30 Atorvastatin 40 Mg Tab PO 40 mg QHS ZAHIRA Administration Carvedilol 25 mg 05/08/22 18:00 05/11/22 17:21 Carvedilol 25 Mg Tab PO 25 mg DAILY ZAHIRA Administration Dextrose 50 ml 05/09/22 09:36 Dextrose 50% In Water (25gm) 50 Ml Syringe IV Q30MIN PRN Hypoglycemia Protocol Finasteride 5 mg 05/09/22 10:00 05/11/22 10:04 Finasteride 5 Mg Tab PO 5 mg QDAY ZAHIRA Administration Gabapentin 300 mg 05/09/22 10:00 05/11/22 10:05 Gabapentin 300 Mg Cap PO 300 mg DAILY ZAHIRA Administration Heparin Sodium (Porcine) 5,000 unit 05/08/22 22:00 05/11/22 10:05 Heparin 5,000 Unit/1 Ml Vial SUB-Q Not Given Q12HR ZAHIRA Heparin Sodium (Porcine) 5,000 unit 05/08/22 18:24 Heparin 10,000 Unit/1 Ml Vial IV FREDDIE PRN hemodialysis Sodium Chloride 100 mls @ 999 mls/hr 05/08/22 18:24 Nacl 0.9% IV FREDDIE PRN Hypotension Insulin Human Lispro 0 unit 05/09/22 11:30 05/11/22 17:26 Insulin Lispro 100 Unit/Ml SUB-Q Not Given ACHS [facility] Protocol Loperamide HCl 2 mg 05/09/22 10:00 05/09/22 10:15 Loperamide 2 Mg Cap PO 2 mg Q2H PRN Administration Diarrhea Losartan Potassium 100 mg 05/08/22 16:00 05/11/22 17:22 Losartan 50 Mg Tab PO 100 mg QDAY ZAHIRA Administration Metoclopramide HCl 5 mg 05/11/22 07:00 Metoclopramide 10 Mg/2 Ml Inj IV Q6H PRN Nausea And Vomiting Morphine Sulfate 2 mg 05/08/22 17:47 05/09/22 23:40 Morphine 2 Mg/1 Ml Inj IV 2 mg Q4H PRN Administration Pain, Moderate (4-6) Multivit/Ca Carb/B Cmplx/FA/Prenat 1 cap 05/08/22 19:00 05/11/22 10:04 Folic Acid/Vit B Comp W-C 1 Mg (Renal Caps) PO 1 cap QDAY ZAHIRA Administration Ondansetron HCl 4 mg 05/08/22 17:47 Ondansetron 4 Mg/2 Ml Inj IV Q8H PRN Nausea And Vomiting Oxycodone/Acetaminophen 1 tab 05/08/22 17:47 05/11/22 10:04 Oxycodone /Acetaminophen 5-325mg Tab PO 1 tab Q6H PRN Administration Pain, Moderate (4-6) Sodium Chloride 10 ml 05/08/22 22:00 05/11/22 10:06 Sodium Chloride 0.9% 10 Ml Flush Syringe IV 10 ml BID ZAHIRA Administration Sodium Chloride 10 ml 05/08/22 17:47 05/10/22 19:29 Sodium Chloride 0.9% 10 Ml Flush Syringe IV 10 ml PRN PRN Administration LINE FLUSH Tramadol HCl 50 mg 05/08/22 17:51 05/11/22 17:19 Tramadol 50 Mg Tab PO 50 mg PRN PRN Administration Pain, Moderate (4-6)
[2022-05-11 20:54] VITALS: BP 130/64
[2022-05-11] MEDS: ACETAMINOPHEN 325 MG TAB PO PRN (21:14)
== END 2022-05-11 22:00 | disposition home or self-care (01) | DRG 640 ==
LOC: ED 10:31 → 4A 18:22
PROVIDERS: ADMIT Internal Medicine; ATTEND Internal Medicine
PROC: 4A033R1 Measurement of Arterial Saturation, Peripheral, Percutaneous Approach (ICD-10-PCS; principal; 2022-05-08)
PROC: 5A1D70Z Performance of Urinary Filtration, Intermittent, Less than 6 Hours Per Day (ICD-10-PCS; 2022-05-09)
PROC: 5A1D70Z Performance of Urinary Filtration, Intermittent, Less than 6 Hours Per Day (ICD-10-PCS; 2022-05-11)
DX: E87.70 Fluid overload, unspecified (principal); J96.01 Acute respiratory failure with hypoxia; N18.6 End stage renal disease; I12.0 Hypertensive chronic kidney disease with stage 5 chronic kidney disease or end stage renal disease; E11.22 Type 2 diabetes mellitus with diabetic chronic kidney disease; Z99.2 Dependence on renal dialysis; J45.909 Unspecified asthma, uncomplicated; E11.40 Type 2 diabetes mellitus with diabetic neuropathy, unspecified; E11.21 Type 2 diabetes mellitus with diabetic nephropathy; N40.0 Benign prostatic hyperplasia without lower urinary tract symptoms; E78.2 Mixed hyperlipidemia; D63.1 Anemia in chronic kidney disease; E21.3 Hyperparathyroidism, unspecified; Z89.511 Acquired absence of right leg below knee; Z79.4 Long term (current) use of insulin; Z79.899 Other long term (current) drug therapy
CPT/HCPCS: 36415; 71045; 80048; 80053; 80074; 82803; 82947; 82962; 83036; 83880; 85007; 85025; 85027; 87040; 87076; 87186; 93005; 93306; 96374; 99285; G0378; J3490; Q0177; Q9967; C8929; J1644; J1815; J1940; J2270; J3370; J7040

== ENCOUNTER 2022-05-11 22:42 | Inpatient (IN) | payer MEDICARE ==
--- NOTE | 2022-05-12 01:59 | XRay Report ---
CHEST 1 VIEW INDICATION / CLINICAL INFORMATION: Weakness. COMPARISON: Chest x-ray 05/08/2022 FINDINGS: SUPPORT DEVICES: Right IJ hemodialysis catheter terminates at the right atrium. HEART / MEDIASTINUM: Stable moderate cardiomegaly. LUNGS / PLEURA: Mild prominence of central vasculature. Lungs appear clear for degree of inspiration. BONES: No significant osseous abnormality. ADDITIONAL FINDINGS: No significant additional findings. IMPRESSION: 1. Stable cardiomegaly. Mild pulmonary venous hypertension could be considered. Signer Name: Hammad Cedeno II, MD Signed: 05/12/2022 1:54 AM Workstation Name: [id number]
[2022-05-12 02:18] LABS: Basophils % (Auto) 0.2 % (0.0-1.8); Eosinophils # (Auto) 0.2 K/mm3 (0.0-0.4); Eosinophils % (Auto) 1.7 % (0.0-4.3); Hematocrit 35.7 % (35.5-45.6); Hemoglobin 11.2 gm/dl (11.8-15.2); Lymphocytes # (Auto) 0.6 K/mm3 (1.2-5.4); Lymphocytes % (Auto) 5.1 % (13.4-35.0); Mean Corpuscular HGB Conc 31 % (32-34); Mean Corpuscular Volume 91 fl (84-94); Monocytes % (Auto) 8.6 % (0.0-7.3); Platelet Count 173 K/mm3 (140-440); Red Blood Count 3.91 M/mm3 (3.65-5.03); Red Cell Distribution Width 16.2 % (13.2-15.2)
[2022-05-12 02:36] LABS: Albumin 3.6 g/dL (3.9-5); Calcium 8.4 mg/dL (8.4-10.2)
[2022-05-12 04:07] LABS: Chol/HDL Ratio 2.7 %
--- NOTE | 2022-05-12 05:00 | Emergency Department Report ---
ED General Adult HPI - General Chief complaint: Weakness Stated complaint: NECK AND BACK PAIN Time Seen by Provider: 05/12/22 01:27 Source: patient, family Mode of arrival: Wheelchair Limitations: Altered Mental Status - History of Present Illness Initial comments: 61 y/o male with known histoiry of ESRD requiring dialysis MWF presnts to emergency department c/o of weakness, sob and headache worsening for the last few days. -: Gradual Radiation: non-radiation Quality: dull Consistency: constant Improves with: none Worsens with: none Associated Symptoms: denies other symptoms, cough, malaise. denies: confusion, chest pain, shortness of breath, syncope, weakness - Related Data Home Medications Medication Instructions Recorded Confirmed Last Taken Finasteride 5 mg PO QDAY 05/27/19 05/12/22 05/27/19 08:00 Vit B Comp No.3/Folic/C/Biotin 1 tab PO QDAY 05/27/19 05/12/22 05/08/22 [Jerrica-Estrella Rx Tablet] carvediloL [Coreg] 25 mg PO BID 05/27/19 05/12/22 05/27/19 08:00 Aspirin [Aspirin BABY CHEW TAB] 81 mg PO DAILY 05/09/22 05/12/22 Unknown Cetirizine HCl [Allergy] 10 mg PO DAILY 05/09/22 05/12/22 Unknown Hydralazine HCl 50 mg PO BID 05/09/22 05/12/22 Unknown cloNIDine [Catapres] 0.1 mg PO BID 05/09/22 05/12/22 Unknown Previous Rx's Medication Instructions Recorded Last Taken Type AtorvaSTATin [Lipitor] 40 mg PO QHS tablet 05/10/22 Unknown Rx Folic Acid/Vit B Comp W-C [Renal 1 cap PO QDAY capsule 05/10/22 Unknown Rx Caps] amLODIPine 10 mg PO DAILY tablet 05/10/22 Unknown Rx Acetaminophen [Acetaminophen TAB] 650 mg PO Q4H PRN tablet 05/14/22 Unknown Rx Allergies Allergy/AdvReac Type Severity Reaction Status Date / Time No Known Allergies Allergy Verified 05/27/19 17:20 ED Review of Systems ROS: Stated complaint: NECK AND BACK PAIN Other details as noted in HPI Comment: All other systems reviewed and negative ED Past Medical Hx - Past Medical History Hx Hypertension: Yes Hx Congestive Heart Failure: Yes Hx Diabetes: Yes Hx Renal Disease: Yes (ESRD, H/D MWF) Hx Asthma: Yes Hx COPD: No - Surgical History Additional Surgical History: left eye surgery. R BKA - Social History Smoking Status: Never Smoker Substance Use Type: None - Medications Home Medications: Home Medications Medication Instructions Recorded Confirmed Last Taken Type Finasteride 5 mg PO QDAY 05/27/19 05/12/22 05/27/19 08:00 History Vit B Comp No.3/Folic/C/Biotin 1 tab PO QDAY 05/27/19 05/12/22 05/08/22 History [Jerrica-Estrella Rx Tablet] carvediloL [Coreg] 25 mg PO BID 05/27/19 05/12/22 05/27/19 08:00 History Aspirin [Aspirin BABY CHEW TAB] 81 mg PO DAILY 05/09/22 05/12/22 Unknown History Cetirizine HCl [Allergy] 10 mg PO DAILY 05/09/22 05/12/22 Unknown History Hydralazine HCl 50 mg PO BID 05/09/22 05/12/22 Unknown History cloNIDine [Catapres] 0.1 mg PO BID 05/09/22 05/12/22 Unknown History AtorvaSTATin [Lipitor] 40 mg PO QHS tablet 05/10/22 05/12/22 Unknown Rx Folic Acid/Vit B Comp W-C [Renal 1 cap PO QDAY capsule 05/10/22 05/12/22 Unknown Rx Caps] amLODIPine 10 mg PO DAILY tablet 05/10/22 05/12/22 Unknown Rx Acetaminophen [Acetaminophen TAB] 650 mg PO Q4H PRN tablet 05/14/22 Unknown Rx ED Physical Exam - General Limitations: Altered Mental Status General appearance: alert, in no apparent distress - Head Head exam: Present: atraumatic, normocephalic - Eye Eye exam: Present: normal appearance, PERRL, EOMI Pupils: Present: normal accommodation - ENT ENT exam: Present: mucous membranes moist, TM's normal bilaterally - Neck Neck exam: Present: normal inspection, full ROM - Respiratory Respiratory exam: Present: normal lung sounds bilaterally. Absent: respiratory distress - Cardiovascular Cardiovascular Exam: Present: regular rate, normal rhythm. Absent: systolic murmur, diastolic murmur, rubs, gallop - GI/Abdominal GI/Abdominal exam: Present: soft, normal bowel sounds - Rectal Rectal exam: Present: deferred - Extremities Exam Extremities exam: Present: normal inspection, normal capillary refill - Back Exam Back exam: Present: normal inspection, full ROM. Absent: CVA tenderness (R), CVA tenderness (L), paraspinal tenderness, vertebral tenderness - Neurological Exam Neurological exam: Present: alert, oriented X3, CN II-XII intact, normal gait - Psychiatric Psychiatric exam: Present: normal affect, normal mood - Skin Skin exam: Present: warm, dry, intact, normal color. Absent: rash ED Course Vital Signs 05/11/22 05/12/22 05/12/22 22:47 05:01 05:11 Temperature 99.3 F 97.5 F L Pulse Rate 70 86 83 Respiratory 17 17 14 Rate Blood Pressure 104/56 Blood Pressure 140/76 [Right] O2 Sat by Pulse 99 94 96 Oximetry 05/12/22 05/12/22 05/12/22 05:16 05:30 05:46 Temperature Pulse Rate 82 81 81 Respiratory 14 14 13 Rate Blood Pressure 120/72 120/72 132/77 Blood Pressure [Right] O2 Sat by Pulse 98 99 99 Oximetry 05/12/22 05/12/22 05/12/22 06:00 06:20 06:30 Temperature Pulse Rate 86 91 H 86 Respiratory 15 16 16 Rate Blood Pressure 132/77 169/103 169/103 Blood Pressure [Right] O2 Sat by Pulse 98 98 98 Oximetry ED Medical Decision Making - Lab Data Result diagrams: 05/13/22 04:43 05/14/22 04:32 Critical care attestation.: If time is entered above; I have spent that time in minutes in the direct care of this critically ill patient, excluding procedure time. ED Disposition Clinical Impression: CHF (congestive heart failure), End stage renal disease Disposition: ADMITTED INPATIENT Is pt being admited?: Yes Does the pt Need Aspirin: No Condition: Stable
[2022-05-12] MEDS ORDERED: MAGNESIUM HYDROXIDE (MOM) ORAL LIQD UDC PO PRN (05:50)
[2022-05-12] MEDS ORDERED: ONDANSETRON 4 MG/2 ML INJ IV PRN (05:50)
[2022-05-12] MEDS ORDERED: MORPHINE 4 MG/1 ML INJ IV PRN (05:50)
[2022-05-12] MEDS ORDERED: DEXTROSE 50% IN WATER (25GM) 50 ML SYRINGE IV PRN (05:50)
[2022-05-12] MEDS ORDERED: ACETAMINOPHEN 325 MG TAB PO PRN (05:50)
--- NOTE | 2022-05-12 06:01 | History and Physical Report ---
History of Present Illness Date of examination: 05/12/22 Date of admission: 05/12/2022 Chief complaint: Generalized weakness History of present illness: 61-year-old -Ivorian male with known history of end-stage renal disease- on dialysis Monday, Wednesdays and Fridays congestive heart failure, hypertension and diabetes mellitus for the discharge is a 24 hours ago from this hospital was found in the waiting area apparently very weak and having changes in mental status. Was also said to be hypotensive. Patient therefore brought back into the emergency room for reevaluation. He was mildly hypotensive with blood pressure 104/56. He was given some IV fluid. Was also slightly hypoxic with oxygen saturation of about 79% was subsequently placed on oxygen by nasal cannula with significant improvement in saturation. Work-up in the emergency room, lab reveals a troponin of 0.315 BUN of 15 creatinine of 12.1. WBC of 11.1. Chest x-ray shows stable cardiomegaly, mild pulmonary venous hypertension. Patient being readmitted for generalized weakness and hypotension. Past History Past Medical History: diabetes, dialysis, ESRD, hypertension, other (Asthma) Past Surgical History: Other (left eye surgery. R BKA) Social history: no significant social history Family history: no significant family history Medications and Allergies Allergies Allergy/AdvReac Type Severity Reaction Status Date / Time No Known Allergies Allergy Verified 05/27/19 17:20 Home Medications Medication Instructions Recorded Confirmed Last Taken Type Finasteride 5 mg PO QDAY 05/27/19 05/09/22 05/27/19 08:00 History Vit B Comp No.3/Folic/C/Biotin 1 tab PO QDAY 05/27/19 05/09/22 05/08/22 History [Jerrica-Estrella Rx Tablet] carvediloL [Coreg] 25 mg PO BID 05/27/19 05/09/22 05/27/19 08:00 History Aspirin [Aspirin BABY CHEW TAB] 81 mg PO DAILY 05/09/22 05/09/22 Unknown History AtorvaSTATin [Lipitor] 40 mg PO DAILY 05/09/22 05/09/22 Unknown History Cetirizine HCl [Allergy] 10 mg PO DAILY 05/09/22 05/09/22 Unknown History Hydralazine HCl 50 mg PO BID 05/09/22 05/09/22 Unknown History cloNIDine [Catapres] 0.1 mg PO BID 05/09/22 05/09/22 Unknown History AtorvaSTATin [Lipitor] 40 mg PO QHS tablet 05/10/22 Unknown Rx Folic Acid/Vit B Comp W-C [Renal 1 cap PO QDAY capsule 05/10/22 Unknown Rx Caps] Losartan [Cozaar] 100 mg PO QDAY tablet 05/10/22 Unknown Rx amLODIPine 10 mg PO DAILY tablet 05/10/22 Unknown Rx Active Meds: Active Medications Levofloxacin/Dextrose (Levaquin 750mg/150ml) 750 mg in 150 mls @ 100 mls/hr IV ONCE STA; Protocol Stop: 05/12/22 06:11 Review of Systems All systems: negative (As stated in HPI) Exam - Constitutional Vitals: Temp Pulse Resp BP Pulse Ox 97.5 F L 83 14 140/76 96 05/12/22 05:01 05/12/22 05:11 05/12/22 05:11 05/12/22 05:01 05/12/22 05:11 General appearance: Present: no acute distress, well-nourished - EENT Eyes: Present: PERRL, EOM intact. Absent: scleral icterus ENT: hearing intact, clear oral mucosa, dentition normal - Neck Neck: Present: supple, normal ROM - Respiratory Respiratory effort: normal Respiratory: bilateral: CTA - Cardiovascular Rhythm: regular Heart Sounds: Present: S1 & S2. Absent: gallop, systolic murmur, diastolic murmur, rub, click - Extremities Extremities: no ischemia, pulses intact, pulses symmetrical, No edema, normal temperature, normal color, Full ROM, abnormal (Right BKA, Partial amputation lef t foot. A-V fistula left upper arm) Peripheral Pulses: within normal limits - Abdominal General gastrointestinal: Present: soft, non-tender, non-distended, normal bowel sounds. Absent: mass - Integumentary Integumentary: Present: clear, warm, dry, normal turgor. Absent: rash - Musculoskeletal Musculoskeletal: strength equal bilaterally - Psychiatric Psychiatric: appropriate mood/affect, intact judgment & insight, memory intact, cooperative - Neurologic Neurologic: CNII-XII intact, no focal deficits, moves all extremities HEART Score - HEART Score Troponin: Troponin T 0.315 ng/mL (0.00-0.029) H* 05/12/22 01:39 Results - Labs CBC & Chem 7: 05/12/22 01:39 05/12/22 01:39 Labs: Abnormal lab results 05/12/22 05/12/22 Range/Units 01:39 01:39 WBC 11.1 H (4.5-11.0) K/mm3 Hgb 11.2 L (11.8-15.2) gm/dl MCHC 31 L (32-34) % RDW 16.2 H (13.2-15.2) % Lymph % (Auto) 5.1 L (13.4-35.0) % [place] % (Auto) 8.6 H (0.0-7.3) % Lymph # (Auto) 0.6 L (1.2-5.4) K/mm3 [place] # (Auto) 1.0 H (0.0-0.8) K/mm3 Seg Neutrophils % 84.4 H (40.0-70.0) % Seg Neutrophils # 9.4 H (1.8-7.7) K/mm3 Chloride 95.2 L (98-107) mmol/L BUN 50 H (9-20) mg/dL Creatinine 12.1 H (0.8-1.3) mg/dL Glucose 103 H (75-100) mg/dL Alkaline Phosphatase 152 H (35-129) units/L Troponin T 0.315 H* (0.00-0.029) ng/mL Albumin 3.6 L (3.9-5) g/dL LDL Cholesterol Direct 21 L (50-130) mg/dL HDL Cholesterol 30 L (40-59) mg/dL Assessment and Plan Assessment: 1. End-stage renal disease on dialysis 2. Generalized weakness 3. Hypotension 4. History of CHF 5. Diabetes mellitus Plan: 1. Patient admitted and will be placed on telemetry. 2. Consult placed to nephrology for evaluation. 3. Patient placed on sliding scale insulin. We will monitor Accu-Cheks. 4. We will resume routine home medications once reconciled. We will continue to monitor vital signs closely. And DVT Prophylaxis: Subcutaneous heparin Code Status: Full code
--- NOTE | 2022-05-12 08:08 | Event Note ---
Date: 05/12/22 Notes from prior visit: Patient dialyzes at [facility] under [facility]. Will transfer.
[2022-05-12] MEDS ORDERED: VANCOMYCIN PHARMACY TO DOSE IV SCH (09:00)
[2022-05-12] MEDS: carvediloL 25 MG TAB PO SCH (10:36)
[2022-05-12] MEDS: ASPIRIN 81 MG TAB CHEW PO SCH (10:36)
[2022-05-12] MEDS: FOLIC ACID/VIT B COMP W-C 1 MG (RENAL CAPS) PO SCH (10:36)
[2022-05-12] MEDS: FINASTERIDE 5 MG TAB PO SCH (10:36)
[2022-05-12] MEDS: MORPHINE 2 MG/1 ML INJ IV PRN ×2 (10:36→20:05)
[2022-05-12] MEDS: CETIRIZINE 10 MG TAB PO SCH (10:36)
[2022-05-12] MEDS: HEPARIN 5,000 UNIT/1 ML VIAL SUB-Q SCH ×2 (10:37→15:40)
[2022-05-12] MEDS: INSULIN LISPRO 100 UNIT/ML SUB-Q SCH ×3 (10:38→22:33)
--- NOTE | 2022-05-12 11:42 | Event Note ---
Date: 05/12/22 Patient seen at bedside. We discussed the blood cultures from 05/09. Patient reports severe neck and back pain since Monday. No imaging noted from previous admission. Vancomycin ordered with pharmacy management. Infectious disease consult ordered for staph aureus bacteremia. We will continue current plan.
--- NOTE | 2022-05-12 11:56 | Consultation ---
History of Present Illness - Reason for Consult Consult date: 05/12/22 bacteremia Requesting physician: BALDOMERO CLINTON - History of Present Illness The patient is a 61-year-old male with ESRD on HD, right BKA, history of left hand fourth finger amputation was originally hospitalized on 05/08/2022 with shortness of breath, recently his PermCath had fallen out and was replaced. He also had some shaking chills so blood cultures were obtained. Patient remained afebrile, was discharged and readmitted within 24 hours with positive blood cultures, hypertension. ID was consulted. Patient complains of neck and upper back pain. Currently receiving IV vancomycin. Review of Systems: General: chills HEENT: no new visual disturbance Respiratory: No cough, sputum, hemoptysis or shortness of breath Cardiovascular: No chest pain, syncope Gastrointestinal: No nausea, vomiting or diarrhea Genitourinary: No dysuria or hematuria Musculoskeletal: neck pain and back pain Neurologic: No headaches, seizures Hematologic: No easy bruising or bleeding Endocrine: No night sweats or acute weight loss Skin: negative for rash, jaundice Psychiatric: No suicidal or homicidal ideation Past History Past Medical History: diabetes, dialysis, ESRD, hypertension, other (Asthma) Past Surgical History: Other (left eye surgery. R BKA) Social history: no significant social history Family history: no significant family history Medications and Allergies Allergies Allergy/AdvReac Type Severity Reaction Status Date / Time No Known Allergies Allergy Verified 05/27/19 17:20 Home Medications Medication Instructions Recorded Confirmed Last Taken Type Finasteride 5 mg PO QDAY 05/27/19 05/12/22 05/27/19 08:00 History Vit B Comp No.3/Folic/C/Biotin 1 tab PO QDAY 05/27/19 05/12/22 05/08/22 History [[facility] Rx Tablet] carvediloL [Coreg] 25 mg PO BID 05/27/19 05/12/22 05/27/19 08:00 History Aspirin [Aspirin BABY CHEW TAB] 81 mg PO DAILY 05/09/22 05/12/22 Unknown History AtorvaSTATin [Lipitor] 40 mg PO DAILY 05/09/22 05/12/22 Unknown History Cetirizine HCl [Allergy] 10 mg PO DAILY 05/09/22 05/12/22 Unknown History Hydralazine HCl 50 mg PO BID 05/09/22 05/12/22 Unknown History cloNIDine [Catapres] 0.1 mg PO BID 05/09/22 05/12/22 Unknown History AtorvaSTATin [Lipitor] 40 mg PO QHS tablet 05/10/22 05/12/22 Unknown Rx Folic Acid/Vit B Comp W-C [Renal 1 cap PO QDAY capsule 05/10/22 05/12/22 Unknown Rx Caps] Losartan [Cozaar] 100 mg PO QDAY tablet 05/10/22 05/12/22 Unknown Rx amLODIPine 10 mg PO DAILY tablet 05/10/22 05/12/22 Unknown Rx Active Meds: Active Medications Acetaminophen (Acetaminophen 325 Mg Tab) 650 mg PO Q4H PRN PRN Reason: Pain MILD(1-3)/Fever >100.5/NUR Aspirin (Aspirin 81 Mg Tab Chew) 81 mg PO DAILY [facility] Last Admin: 05/12/22 10:36 Dose: 81 mg Atorvastatin Calcium (Atorvastatin 40 Mg Tab) 40 mg PO QHS [facility] Carvedilol (Carvedilol 25 Mg Tab) 25 mg PO BID [facility] Last Admin: 05/12/22 10:36 Dose: 25 mg Cetirizine HCl (Cetirizine 10 Mg Tab) 10 mg PO DAILY [facility] Last Admin: 05/12/22 10:36 Dose: 10 mg Dextrose (Dextrose 50% In Water (25gm) 50 Ml Syringe) 50 ml IV Q30MIN PRN; Protocol PRN Reason: Hypoglycemia Finasteride (Finasteride 5 Mg Tab) 5 mg PO QDAY [facility] Last Admin: 05/12/22 10:36 Dose: 5 mg Heparin Sodium (Porcine) (Heparin 5,000 Unit/1 Ml Vial) 5,000 unit SUB-Q Q8HR [facility] Last Admin: 05/12/22 10:37 Dose: Not Given Insulin Human Lispro (Insulin Lispro 100 Unit/Ml) 0 unit SUB-Q ACHS [facility]; Protocol Last Admin: 05/12/22 10:38 Dose: Not Given Magnesium Hydroxide (Magnesium Hydroxide (Mom) Oral Liqd Udc) 30 ml PO Q4H PRN PRN Reason: Constipation Morphine Sulfate (Morphine 2 Mg/1 Ml Inj) 2 mg IV Q4H PRN PRN Reason: Pain, Moderate (4-6) Last Admin: 05/12/22 10:36 Dose: 2 mg Morphine Sulfate (Morphine 4 Mg/1 Ml Inj) 4 mg IV Q4H PRN PRN Reason: Pain , Severe (7-10) Multivit/Ca Carb/B Cmplx/FA/Prenat (Folic Acid/Vit B Comp W-C 1 Mg (Renal Caps)) 1 cap PO QDAY [facility] Last Admin: 05/12/22 10:36 Dose: 1 cap Ondansetron HCl (Ondansetron 4 Mg/2 Ml Inj) 4 mg IV Q8H PRN PRN Reason: Nausea And Vomiting Sodium Chloride (Sodium Chloride 0.9% 10 Ml Flush Syringe) 10 ml IV BID [facility] Last Admin: 05/12/22 10:36 Dose: 10 ml Sodium Chloride (Sodium Chloride 0.9% 10 Ml Flush Syringe) 10 ml IV PRN PRN PRN Reason: LINE FLUSH Physical Examination - Physical Exam Narrative exam: Physical Exam: Constitutional: Alert, cooperative. No acute distress Head, Ears, Nose: Normocephalic, atraumatic. External ears, nose normal Eyes: Conjunctivae/corneas clear. No icterus. No ptosis. Neck: painful ROM Cardiovascular: S1, S2 + Respiratory: Good air entry, clear to auscultation bilaterally GI: Soft, non-tender; bowel sounds normal. No peritoneal signs Musculoskeletal: Right BKA, left hand fourth finger amputation. PermCath, site non tender Skin: No rash or abscess Hem/Lymphatic: No palpable cervical or supraclavicular nodes. No lymphangitis Psych: Mood ok. Affect normal Neurological: Awake, alert, oriented. No gross abnormality - Constitutional Vitals: Vital Signs Temp Pulse Resp BP Pulse Ox 97.7 F 84 20 142/89 99 05/12/22 06:56 05/12/22 06:56 05/12/22 10:36 05/12/22 06:56 05/12/22 10:00 Temperature -Last 24 Hours Temperature 97.7 F Temperature 97.5 F Temperature 99.3 F Results - Labs CBC & Chem 7: 05/12/22 01:39 05/12/22 01:39 Labs: Abnormal lab results 05/12/22 05/12/22 05/12/22 Range/Units 01:39 01:39 09:02 WBC 11.1 H (4.5-11.0) K/mm3 Hgb 11.2 L (11.8-15.2) gm/dl MCHC 31 L (32-34) % RDW 16.2 H (13.2-15.2) % Lymph % (Auto) 5.1 L (13.4-35.0) % [place] % (Auto) 8.6 H (0.0-7.3) % Lymph # (Auto) 0.6 L (1.2-5.4) K/mm3 [place] # (Auto) 1.0 H (0.0-0.8) K/mm3 Seg Neutrophils % 84.4 H (40.0-70.0) % Seg Neutrophils # 9.4 H (1.8-7.7) K/mm3 Chloride 95.2 L (98-107) mmol/L BUN 50 H (9-20) mg/dL Creatinine 12.1 H (0.8-1.3) mg/dL Glucose 103 H (75-100) mg/dL POC Glucose 122 H (70-105) mg/dL Alkaline Phosphatase 152 H (35-129) units/L Troponin T 0.315 H* (0.00-0.029) ng/mL Albumin 3.6 L (3.9-5) g/dL LDL Cholesterol Direct 21 L (50-130) mg/dL HDL Cholesterol 30 L (40-59) mg/dL - Imaging and Cardiology Chest x-ray: report reviewed, image reviewed (no pneumonia) Assessment and Plan Cultures: 05/09/2022 blood culture: Staph aureus 05/12/2022 blood culture: In process A/P: 61-year-old male with ESRD on HD, right BKA, history of left hand fourth finger amputation was originally hospitalized on 05/08/2022 with shortness of breath, recently his PermCath had fallen out and was replaced, now with: #Sepsis: Leukocytosis, Staph aureus bacteremia: Source could be his PermCath. Apparently it recently fell out and was reinserted. TTE 05/09/2022 did not show obvious valvular vegetations. #Neck pain and back pain: Given bacteremia, will need evaluation with MRI to rule out discitis, osteomyelitis. #ESRD on HD: Renally adjust antibiotics Recs: -Continue empiric IV vancomycin -Given previous history of MSSA bacteremia, Ancef added -f/u repeat blood cultures from 05/12/2022, if positive, will need a YUMIKO -Stat MRI of the cervical, thoracic and lumbar spine ordered -remove PermCath due to bacteremia Casey Uriarte MD, FACP, BEV [facility] ([facility] O: [phone] F: [phone] C: [phone]
[2022-05-12] MEDS ORDERED: SODIUM CHLORIDE 0.9% 100 ML IV PRN (13:08)
--- NOTE | 2022-05-12 13:32 | Consultation ---
History of Present Illness - Reason for Consult Consult date: 05/12/22 Bacteremia - History of Present Illness Patient with a history of end-stage renal disease on hemodialysis through a tunneled hemodialysis catheter. Patient was recently discharged from the hospital. Blood cultures drawn on the prior to his discharge have now returned positive for staph aureus in 2 out of 2 bottles and 2 separate lab draws. On examination, the patient is somnolent. Past History Past Medical History: diabetes, dialysis, ESRD, hypertension, other (Asthma) Past Surgical History: Other (left eye surgery. R BKA) Social history: no significant social history Family history: no significant family history Medications and Allergies Allergies Allergy/AdvReac Type Severity Reaction Status Date / Time No Known Allergies Allergy Verified 05/27/19 17:20 Home Medications Medication Instructions Recorded Confirmed Last Taken Type Finasteride 5 mg PO QDAY 05/27/19 05/12/22 05/27/19 08:00 History Vit B Comp No.3/Folic/C/Biotin 1 tab PO QDAY 05/27/19 05/12/22 05/08/22 History [Jerrica-Estrella Rx Tablet] carvediloL [Coreg] 25 mg PO BID 05/27/19 05/12/22 05/27/19 08:00 History Aspirin [Aspirin BABY CHEW TAB] 81 mg PO DAILY 05/09/22 05/12/22 Unknown History AtorvaSTATin [Lipitor] 40 mg PO DAILY 05/09/22 05/12/22 Unknown History Cetirizine HCl [Allergy] 10 mg PO DAILY 05/09/22 05/12/22 Unknown History Hydralazine HCl 50 mg PO BID 05/09/22 05/12/22 Unknown History cloNIDine [Catapres] 0.1 mg PO BID 05/09/22 05/12/22 Unknown History AtorvaSTATin [Lipitor] 40 mg PO QHS tablet 05/10/22 05/12/22 Unknown Rx Folic Acid/Vit B Comp W-C [Renal 1 cap PO QDAY capsule 05/10/22 05/12/22 Unknown Rx Caps] Losartan [Cozaar] 100 mg PO QDAY tablet 05/10/22 05/12/22 Unknown Rx amLODIPine 10 mg PO DAILY tablet 05/10/22 05/12/22 Unknown Rx Active Meds: Active Medications Acetaminophen (Acetaminophen 325 Mg Tab) 650 mg PO Q4H PRN PRN Reason: Pain MILD(1-3)/Fever >100.5/NUR Aspirin (Aspirin 81 Mg Tab Chew) 81 mg PO DAILY [facility] Last Admin: 05/12/22 10:36 Dose: 81 mg Atorvastatin Calcium (Atorvastatin 40 Mg Tab) 40 mg PO QHS [facility] Carvedilol (Carvedilol 25 Mg Tab) 25 mg PO BID [facility] Last Admin: 05/12/22 10:36 Dose: 25 mg Cetirizine HCl (Cetirizine 10 Mg Tab) 10 mg PO DAILY [facility] Last Admin: 05/12/22 10:36 Dose: 10 mg Dextrose (Dextrose 50% In Water (25gm) 50 Ml Syringe) 50 ml IV Q30MIN PRN; Protocol PRN Reason: Hypoglycemia Finasteride (Finasteride 5 Mg Tab) 5 mg PO QDAY [facility] Last Admin: 05/12/22 10:36 Dose: 5 mg Heparin Sodium (Porcine) (Heparin 5,000 Unit/1 Ml Vial) 5,000 unit SUB-Q Q8HR [facility] Last Admin: 05/12/22 10:37 Dose: Not Given Cefazolin Sodium (Ancef/Ns 1 Gm/50 Ml) 1 gm in 50 mls @ 100 mls/hr IV QPM [facility]; Protocol Sodium Chloride (Nacl 0.9%) 100 mls @ 999 mls/hr IV FREDDIE PRN PRN Reason: Hypotension Insulin Human Lispro (Insulin Lispro 100 Unit/Ml) 0 unit SUB-Q ACHS [facility]; Protocol Last Admin: 05/12/22 12:43 Dose: Not Given Magnesium Hydroxide (Magnesium Hydroxide (Mom) Oral Liqd Udc) 30 ml PO Q4H PRN PRN Reason: Constipation Morphine Sulfate (Morphine 2 Mg/1 Ml Inj) 2 mg IV Q4H PRN PRN Reason: Pain, Moderate (4-6) Last Admin: 05/12/22 10:36 Dose: 2 mg Morphine Sulfate (Morphine 4 Mg/1 Ml Inj) 4 mg IV Q4H PRN PRN Reason: Pain , Severe (7-10) Multivit/Ca Carb/B Cmplx/FA/Prenat (Folic Acid/Vit B Comp W-C 1 Mg (Renal Caps)) 1 cap PO QDAY [facility] Last Admin: 05/12/22 10:36 Dose: 1 cap Ondansetron HCl (Ondansetron 4 Mg/2 Ml Inj) 4 mg IV Q8H PRN PRN Reason: Nausea And Vomiting Sodium Chloride (Sodium Chloride 0.9% 10 Ml Flush Syringe) 10 ml IV BID [facility] Last Admin: 05/12/22 10:36 Dose: 10 ml Sodium Chloride (Sodium Chloride 0.9% 10 Ml Flush Syringe) 10 ml IV PRN PRN PRN Reason: LINE FLUSH Review of Systems ROS unobtainable: due to mental status Exam - Constitutional Vitals: Temp Pulse Resp BP Pulse Ox 98.2 F 78 18 97/54 94 05/12/22 12:00 05/12/22 12:00 05/12/22 12:00 05/12/22 12:00 05/12/22 12:00 General appearance: Present: mild distress - Neck Neck: Present: supple - Respiratory Respiratory effort: normal - Abdominal Male genitourinary: Present: deferred - Rectal Rectal Exam: deferred Results - Labs CBC & Chem 7: 05/12/22 01:39 05/12/22 01:39 Labs: Abnormal lab results 05/12/22 05/12/22 05/12/22 Range/Units 01:39 01:39 09:02 WBC 11.1 H (4.5-11.0) K/mm3 Hgb 11.2 L (11.8-15.2) gm/dl MCHC 31 L (32-34) % RDW 16.2 H (13.2-15.2) % Lymph % (Auto) 5.1 L (13.4-35.0) % [place] % (Auto) 8.6 H (0.0-7.3) % Lymph # (Auto) 0.6 L (1.2-5.4) K/mm3 [place] # (Auto) 1.0 H (0.0-0.8) K/mm3 Seg Neutrophils % 84.4 H (40.0-70.0) % Seg Neutrophils # 9.4 H (1.8-7.7) K/mm3 Chloride 95.2 L (98-107) mmol/L BUN 50 H (9-20) mg/dL Creatinine 12.1 H (0.8-1.3) mg/dL Glucose 103 H (75-100) mg/dL POC Glucose 122 H (70-105) mg/dL Alkaline Phosphatase 152 H (35-129) units/L Troponin T 0.315 H* (0.00-0.029) ng/mL Albumin 3.6 L (3.9-5) g/dL LDL Cholesterol Direct 21 L (50-130) mg/dL HDL Cholesterol 30 L (40-59) mg/dL 05/12/22 Range/Units 11:15 WBC (4.5-11.0) K/mm3 Hgb (11.8-15.2) gm/dl MCHC (32-34) % RDW (13.2-15.2) % Lymph % (Auto) (13.4-35.0) % [place] % (Auto) (0.0-7.3) % Lymph # (Auto) (1.2-5.4) K/mm3 [place] # (Auto) (0.0-0.8) K/mm3 Seg Neutrophils % (40.0-70.0) % Seg Neutrophils # (1.8-7.7) K/mm3 Chloride (98-107) mmol/L BUN (9-20) mg/dL Creatinine (0.8-1.3) mg/dL Glucose (75-100) mg/dL POC Glucose 117 H (70-105) mg/dL Alkaline Phosphatase (35-129) units/L Troponin T (0.00-0.029) ng/mL Albumin (3.9-5) g/dL LDL Cholesterol Direct (50-130) mg/dL HDL Cholesterol (40-59) mg/dL Assessment and Plan 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 Patient will undergo dialysis later on today. Following his dialysis, the patient will have his catheter removed likely tomorrow morning and be allowed to have a holiday over the weekend with placement of either Vas-Cath or PermCath on Monday depending on patient's status.
[2022-05-12] MEDS ORDERED: ceFAZolin/NS 1 GM/50 ML 1 GM/50 ML BAG IV SCH (18:00)
--- NOTE | 2022-05-12 20:54 | Consultation ---
History of Present Illness - Reason for Consult Consult date: 05/12/22 end stage renal disease - History of Present Illness This is a 61-year-old man with end-stage renal disease on hemodialysis, d iabetes, hypertension who was hospitalized on 05/08 with shortness of breath. At that time he also had cultures obtained due to complaints of chills. He was then discharged and readmitted within 24 hours due to positive blood cultures. Nephrology was consulted for ESRD management. Patient denies chest pain, presyncope and syncope. Past History Past Medical History: diabetes, dialysis, ESRD, hypertension, other (Asthma) Past Surgical History: Other (left eye surgery. R BKA) Social history: no significant social history Family history: no significant family history Medications and Allergies Allergies Allergy/AdvReac Type Severity Reaction Status Date / Time No Known Allergies Allergy Verified 05/27/19 17:20 Home Medications Medication Instructions Recorded Confirmed Last Taken Type Finasteride 5 mg PO QDAY 05/27/19 05/12/22 05/27/19 08:00 History Vit B Comp No.3/Folic/C/Biotin 1 tab PO QDAY 05/27/19 05/12/22 05/08/22 History [Jerrica-Estrella Rx Tablet] carvediloL [Coreg] 25 mg PO BID 05/27/19 05/12/22 05/27/19 08:00 History Aspirin [Aspirin BABY CHEW TAB] 81 mg PO DAILY 05/09/22 05/12/22 Unknown History AtorvaSTATin [Lipitor] 40 mg PO DAILY 05/09/22 05/12/22 Unknown History Cetirizine HCl [Allergy] 10 mg PO DAILY 05/09/22 05/12/22 Unknown History Hydralazine HCl 50 mg PO BID 05/09/22 05/12/22 Unknown History cloNIDine [Catapres] 0.1 mg PO BID 05/09/22 05/12/22 Unknown History AtorvaSTATin [Lipitor] 40 mg PO QHS tablet 05/10/22 05/12/22 Unknown Rx Folic Acid/Vit B Comp W-C [Renal 1 cap PO QDAY capsule 05/10/22 05/12/22 Unknown Rx Caps] Losartan [Cozaar] 100 mg PO QDAY tablet 05/10/22 05/12/22 Unknown Rx amLODIPine 10 mg PO DAILY tablet 05/10/22 05/12/22 Unknown Rx Active Meds: Active Medications Acetaminophen (Acetaminophen 325 Mg Tab) 650 mg PO Q4H PRN PRN Reason: Pain MILD(1-3)/Fever >100.5/NUR Aspirin (Aspirin 81 Mg Tab Chew) 81 mg PO DAILY [facility] Last Admin: 05/12/22 10:36 Dose: 81 mg Atorvastatin Calcium (Atorvastatin 40 Mg Tab) 40 mg PO QHS [facility] Carvedilol (Carvedilol 25 Mg Tab) 25 mg PO BID [facility] Last Admin: 05/12/22 10:36 Dose: 25 mg Cetirizine HCl (Cetirizine 10 Mg Tab) 10 mg PO DAILY [facility] Last Admin: 05/12/22 10:36 Dose: 10 mg Dextrose (Dextrose 50% In Water (25gm) 50 Ml Syringe) 50 ml IV Q30MIN PRN; Protocol PRN Reason: Hypoglycemia Finasteride (Finasteride 5 Mg Tab) 5 mg PO QDAY [facility] Last Admin: 05/12/22 10:36 Dose: 5 mg Heparin Sodium (Porcine) (Heparin 5,000 Unit/1 Ml Vial) 5,000 unit SUB-Q Q8HR [facility] Last Admin: 05/12/22 15:40 Dose: Not Given Cefazolin Sodium (Ancef/Ns 1 Gm/50 Ml) 1 gm in 50 mls @ 100 mls/hr IV QPM [facility]; Protocol Sodium Chloride (Nacl 0.9%) 100 mls @ 999 mls/hr IV FREDDIE PRN PRN Reason: Hypotension Insulin Human Lispro (Insulin Lispro 100 Unit/Ml) 0 unit SUB-Q ACHS [facility]; Protocol Last Admin: 05/12/22 12:43 Dose: Not Given Magnesium Hydroxide (Magnesium Hydroxide (Mom) Oral Liqd Udc) 30 ml PO Q4H PRN PRN Reason: Constipation Morphine Sulfate (Morphine 2 Mg/1 Ml Inj) 2 mg IV Q4H PRN PRN Reason: Pain, Moderate (4-6) Last Admin: 05/12/22 10:36 Dose: 2 mg Morphine Sulfate (Morphine 4 Mg/1 Ml Inj) 4 mg IV Q4H PRN PRN Reason: Pain , Severe (7-10) Multivit/Ca Carb/B Cmplx/FA/Prenat (Folic Acid/Vit B Comp W-C 1 Mg (Renal Caps)) 1 cap PO QDAY [facility] Last Admin: 05/12/22 10:36 Dose: 1 cap Ondansetron HCl (Ondansetron 4 Mg/2 Ml Inj) 4 mg IV Q8H PRN PRN Reason: Nausea And Vomiting Sodium Chloride (Sodium Chloride 0.9% 10 Ml Flush Syringe) 10 ml IV BID [facility] Last Admin: 05/12/22 10:36 Dose: 10 ml Sodium Chloride (Sodium Chloride 0.9% 10 Ml Flush Syringe) 10 ml IV PRN PRN PRN Reason: LINE FLUSH Review of Systems All systems: negative Constitutional: chills Exam - Vital Signs Vital signs: Vital Signs Temp Pulse Resp BP Pulse Ox 99.3 F 70 17 104/56 99 05/11/22 22:47 05/11/22 22:47 05/11/22 22:47 05/11/22 22:47 05/11/22 22:47 - Physical Exam Narrative exam: Constitutional: no acute distress Head: NC/AT Neck: supple Lungs: clear to auscultation CV: RRR, no M/R/G Abdomen: soft, non-tender, bowel sounds present Back: nontender Extremities: no edema, pulses WNL Skin: intact Neuro: no focal deficits, alert and oriented x4 Results - Lab Results 05/12/22 01:39 05/12/22 01:39 Most recent lab results Calcium 8.4 mg/dL (8.4-10.2) 05/12/22 01:39 Magnesium 1.80 mg/dL (1.7-2.3) 05/12/22 01:39 Assessment and Plan End-stage renal disease on hemodialysis Essential hypertension Anemia of ESRD MSSA bacteremia Hyperphosphatemia Hyperparathyroidism Hemodialysis today plan for hemodialysis today, catheter can be removed post HD with subsequent line holiday. Provided left to be stable over again, PermCath can be placed on Monday. If cultures are still positive on Monday will need a temporary Vas-Cath at the time. Discussed with IR. Assess daily for needs for additional sessions of dialysis Continue antihypertensives Hold antihypertensives on hemodialysis days for systolics less than 160 Continue binders if applicable No indication for Epogen with HD Renally dose medications ESRD diet with 1.2-1. 4 g/kg/d protein intake
[2022-05-13] MEDS: carvediloL 25 MG TAB PO SCH ×3 (01:38→21:51)
[2022-05-13] MEDS: HEPARIN 5,000 UNIT/1 ML VIAL SUB-Q SCH ×4 (01:40→21:51)
[2022-05-13 05:49] LABS: Basophils % (Auto) 0.3 % (0.0-1.8); Eosinophils # (Auto) 0.5 K/mm3 (0.0-0.4); Eosinophils % (Auto) 5.8 % (0.0-4.3); Hematocrit 36.3 % (35.5-45.6); Hemoglobin 11.6 gm/dl (11.8-15.2); Lymphocytes # (Auto) 0.4 K/mm3 (1.2-5.4); Lymphocytes % (Auto) 5.3 % (13.4-35.0); Mean Corpuscular HGB Conc 32 % (32-34); Mean Corpuscular Volume 91 fl (84-94); Monocytes # (Auto) 0.8 K/mm3 (0.0-0.8); Monocytes % (Auto) 10.1 % (0.0-7.3); Platelet Count 214 K/mm3 (140-440); Red Blood Count 3.98 M/mm3 (3.65-5.03)
[2022-05-13 06:05] LABS: Calcium 8.6 mg/dL (8.4-10.2)
[2022-05-13] MEDS: INSULIN LISPRO 100 UNIT/ML SUB-Q SCH ×5 (06:32→21:53)
--- NOTE | 2022-05-13 07:25 | Progress Note ---
Assessment and Plan Assessment and plan: #Sepsis secondary to MRSA bacteremia -blood cultures from 05/09: 11/29 bottles growing MRSA -Continue vancomycin; will discontinue Ancef -Continue to follow repeat blood cultures (05/12) until negative -Line holiday after removal of permacath today -Echocardiogram 05/09 did not show vegetations -MRI of the C, T and L-spine negative for findings of discitis -Infectious disease following, assistance appreciated #End-stage renal disease on dialysis -HD outpatient MWF -Dialyzed on 05/12; permacath to be removed today for line holiday -Nephrology following, assistance appreciated -Renally dose medications, avoid nephrotoxins #Hypotension-resolved #Hypertension -continue coreg -hydralazine and clonidine held due to patient with SBP<150s; will add if BP increases -low BP likely secondary to bacteremia #Type 2 diabetes mellitus, controlled -continue accuchecks + SSI #Generalized weakness -Improved, likely secondary to bacteremia #Chronic respiratory failure -patient intermittently uses supplemental O2 at home -PRN oxygen as needed #Advanced care planning -Disease education conducted, care plan discussed, diagnoses discussed, prognosis discussed, and patient acknowledges understanding with care plan -Time: +30 min History Interval history: No acute events overnight. He is awaiting MRI. He denies fevers and chills. He denies chest pain and discomfort. He was updated about current care plan. Hospitalist Physical - Physical exam Narrative exam: GENERAL: Well-developed well-nourished. Sitting in the recliner, in no acute distress HEENT: Normocephalic. Atraumatic. CHEST/LUNGS: CTAB on room air HEART/CARDIOVASCULAR: RRR. No murmur, rubs or gallops appreciated. ABDOMEN: +BS. NT/ND. SKIN: No rashes noted. NEURO: No focal motor deficit. Follows all commands and is ambulatory. EXTREMITIES: No cyanosis, clubbing or edema. R BKA stump intact. Old LUE AVF. Missing 4th digit of L hand. PSYCH: Cooperative. - Constitutional Vitals: Temp Pulse Resp BP Pulse Ox 98.7 F 90 20 158/82 96 05/13/22 05:44 05/13/22 05:44 05/13/22 05:44 05/13/22 05:44 05/13/22 05:44 HEART Score - HEART Score Troponin: Troponin T 0.315 ng/mL (0.00-0.029) H* 05/12/22 01:39 Results - Labs CBC & Chem 7: 05/13/22 04:43 05/14/22 04:32 Labs: Laboratory Last Values WBC 8.4 K/mm3 (4.5-11.0) 05/13/22 04:43 RBC 3.98 M/mm3 (3.65-5.03) 05/13/22 04:43 Hgb 11.6 gm/dl (11.8-15.2) L 05/13/22 04:43 Hct 36.3 % (35.5-45.6) 05/13/22 04:43 MCV 91 fl (84-94) 05/13/22 04:43 MCH 29 pg (28-32) 05/13/22 04:43 MCHC 32 % (32-34) 05/13/22 04:43 RDW 16.0 % (13.2-15.2) H 05/13/22 04:43 Plt Count 214 K/mm3 (140-440) 05/13/22 04:43 Lymph % (Auto) 5.3 % (13.4-35.0) L 05/13/22 04:43 [place] % (Auto) 10.1 % (0.0-7.3) H 05/13/22 04:43 Eos % (Auto) 5.8 % (0.0-4.3) H 05/13/22 04:43 Baso % (Auto) 0.3 % (0.0-1.8) 05/13/22 04:43 Lymph # (Auto) 0.4 K/mm3 (1.2-5.4) L 05/13/22 04:43 [place] # (Auto) 0.8 K/mm3 (0.0-0.8) 05/13/22 04:43 Eos # (Auto) 0.5 K/mm3 (0.0-0.4) H 05/13/22 04:43 Baso # (Auto) 0.0 K/mm3 (0.0-0.1) 05/13/22 04:43 Seg Neutrophils % 78.5 % (40.0-70.0) H 05/13/22 04:43 Seg Neutrophils # 6.6 K/mm3 (1.8-7.7) 05/13/22 04:43 Sodium 136 mmol/L (137-145) L 05/13/22 04:43 Potassium 4.2 mmol/L (3.6-5.0) 05/13/22 04:43 Chloride 95.4 mmol/L (98-107) L 05/13/22 04:43 Carbon Dioxide 25 mmol/L (22-30) 05/13/22 04:43 Anion Gap 20 mmol/L 05/13/22 04:43 BUN 38 mg/dL (9-20) H 05/13/22 04:43 Creatinine 9.0 mg/dL (0.8-1.3) H 05/13/22 04:43 Estimated GFR 7 ml/min 05/13/22 04:43 BUN/Creatinine Ratio 4 % 05/13/22 04:43 Glucose 155 mg/dL (75-100) H 05/13/22 04:43 POC Glucose 117 mg/dL (70-105) H 05/12/22 11:15 Calcium 8.6 mg/dL (8.4-10.2) 05/13/22 04:43 Magnesium 1.80 mg/dL (1.7-2.3) 05/12/22 01:39 Total Bilirubin 0.30 mg/dL (0.1-1.2) 05/12/22 01:39 AST 29 units/L (5-40) 05/12/22 01:39 ALT 52 units/L (7-56) 05/12/22 01:39 Alkaline Phosphatase 152 units/L (35-129) H 05/12/22 01:39 Troponin T 0.315 ng/mL (0.00-0.029) H* 05/12/22 01:39 Total Protein 6.8 g/dL (6.3-8.2) 05/12/22 01:39 Albumin 3.6 g/dL (3.9-5) L 05/12/22 01:39 Albumin/Globulin Ratio 1.1 % 05/12/22 01:39 Triglycerides 137 mg/dL (2-149) 05/12/22 01:39 Cholesterol 81 mg/dL (50-199) 05/12/22 01:39 LDL Cholesterol Direct 21 mg/dL (50-130) L 05/12/22 01:39 HDL Cholesterol 30 mg/dL (40-59) L 05/12/22 01:39 Cholesterol/HDL Ratio 2.70 % 05/12/22 01:39 Random Vancomycin 17.2 ug/mL (0-40.0) 05/12/22 08:45 Microbiology: Microbiology 05/12/22 08:45 Peripheral/Venous Blood Culture - Preliminary Culture in Progress 05/12/22 08:45 Peripheral/Venous Blood Culture - Preliminary Culture in Progress Pham/IV: Voiding Method Urinal Active Medications - Current Medications Current Medications: Generic Name Dose Route Start Last Admin Trade Name Freq PRN Reason Stop Dose Admin Acetaminophen 650 mg 05/12/22 05:50 Acetaminophen 325 Mg Tab PO Q4H PRN Pain MILD(1-3)/Fever >100.5/NUR Aspirin 81 mg 05/12/22 10:00 05/12/22 10:36 Aspirin 81 Mg Tab Chew PO 81 mg DAILY ZAHIRA Administration Atorvastatin Calcium 40 mg 05/12/22 22:00 05/13/22 01:38 Atorvastatin 40 Mg Tab PO 40 mg QHS ZAHIRA Administration Carvedilol 25 mg 05/12/22 10:00 05/13/22 01:38 Carvedilol 25 Mg Tab PO 25 mg BID ZAHIRA Administration Cetirizine HCl 10 mg 05/12/22 10:00 05/12/22 10:36 Cetirizine 10 Mg Tab PO 10 mg DAILY ZAHIRA Administration Dextrose 50 ml 05/12/22 05:50 Dextrose 50% In Water (25gm) 50 Ml Syringe IV Q30MIN PRN Hypoglycemia Protocol Finasteride 5 mg 05/12/22 10:00 05/12/22 10:36 Finasteride 5 Mg Tab PO 5 mg QDAY ZAHIRA Administration Heparin Sodium (Porcine) 5,000 unit 05/12/22 06:00 05/13/22 06:32 Heparin 5,000 Unit/1 Ml Vial SUB-Q Not Given Q8HR [facility] Cefazolin Sodium 1 gm in 50 mls @ 100 mls/hr 05/12/22 18:00 05/13/22 04:50 Ancef/Ns 1 Gm/50 Ml IV Not Given QPM ZAHIRA Protocol Sodium Chloride 100 mls @ 999 mls/hr 05/12/22 13:08 Nacl 0.9% IV FREDDIE PRN Hypotension Insulin Human Lispro 0 unit 05/12/22 07:30 05/13/22 06:32 Insulin Lispro 100 Unit/Ml SUB-Q Not Given ACHS [facility] Protocol Magnesium Hydroxide 30 ml 05/12/22 05:50 Magnesium Hydroxide (Mom) Oral Liqd Udc PO Q4H PRN Constipation Morphine Sulfate 2 mg 05/12/22 05:50 05/12/22 20:05 Morphine 2 Mg/1 Ml Inj IV 2 mg Q4H PRN Administration Pain, Moderate (4-6) Morphine Sulfate 4 mg 05/12/22 05:50 05/13/22 01:44 Morphine 4 Mg/1 Ml Inj IV 4 mg Q4H PRN Administration Pain , Severe (7-10) Multivit/Ca Carb/B Cmplx/FA/Prenat 1 cap 05/12/22 10:00 05/12/22 10:36 Folic Acid/Vit B Comp W-C 1 Mg (Renal Caps) PO 1 cap QDAY ZAHIRA Administration Ondansetron HCl 4 mg 05/12/22 05:50 Ondansetron 4 Mg/2 Ml Inj IV Q8H PRN Nausea And Vomiting Sodium Chloride 10 ml 05/12/22 10:00 05/13/22 01:40 Sodium Chloride 0.9% 10 Ml Flush Syringe IV 10 ml BID ZAHIRA Administration Sodium Chloride 10 ml 05/12/22 05:50 Sodium Chloride 0.9% 10 Ml Flush Syringe IV PRN PRN LINE FLUSH Nutrition/Malnutrition Assess - Dietary Evaluation Nutrition/Malnutrition Findings: Nutrition Notes Start: 05/12/22 11:18 Freq: Status: Active Protocol: Document 05/12/22 11:18 YAYA (Rec: 05/12/22 11:26 YAYA [id number]) Nutrition Notes Need for Assessment generated from: MD Order,Education Initial or Follow up Brief Note Current Diagnosis CKD (stage V CKD),Diabetes, Hypertension Other Pertinent Diagnosis ESRD+HD, CHF, Weakness, Hypotension. Current Diet Cardiac/Consistent Carbohydrates Diet (since ). Height 6 ft 4 in Weight 89.811 kg [place] Body Weight (kg) 91.81 BMI 24.0 Intake Prior to Admission Good Weight change and time frame Pt denies having loss body weight [employer]. Weight Status Appropriate Subjective/Other Information RD consult for nutrition education assessment. No reports available on Pt's PO intake of meals at the time , will assess at F/U. Pt is on Room Air, O2 saturation @ 99%, according to Physical Assessment History notes. Pt still in critical condition , not a candidate for Nutrition Education at the time, will assess feasibility on F/U. Percent of energy/protein needs met: Prescribed Cardiac/Consistent Carbohydrates Diet provides for energy/protein needs (1, 977 Kcal/86 g) during LOS. Nutrition Intervention Follow-Up By: 05/19/22 Additional Comments Nutrition education will be provided at F/U, if feasible. Continue monitoring food tolerance, %PO intake of meals , and BM.
--- NOTE | 2022-05-13 08:34 | Progress Note ---
Assessment and Plan Cultures: 05/09/2022 blood culture: MRSA 05/12/2022 blood culture: In process A/P: 61-year-old male with ESRD on HD, right BKA, history of left hand fourth finger amputation was originally hospitalized on 05/08/2022 with shortness of breath, recently his PermCath had fallen out and was replaced, now with: #Sepsis: Leukocytosis, MRSA bacteremia: Source could be his PermCath. Apparently it recently fell out and was reinserted. TTE 05/09/2022 showed moderate LV dilation, LVEF 30%, mild MR, trace aortic regurgitation, no obvious valvular vegetations. #Neck pain and back pain: Given bacteremia, will need evaluation with MRI to rule out discitis, osteomyelitis. #ESRD on HD: Renally adjust antibiotics Recs: -Continue IV vancomycin, renally adjusted -f/u repeat blood cultures from 05/12/2022, if positive, will need a YUMIKO -still awaiting MRI of the cervical, thoracic and lumbar spine -PermCath removal. May insert new one after blood cultures are negative at 48 hours Casey Uriarte MD, FACP, BEV [facility] ([facility] O: [phone] F: [phone] C: [phone] Subjective Date of service: 05/13/22 Interval history: Afebrile. Sitting in a chair. Says his neck is still hurting. MRI not done yet. Objective - Exam Narrative Exam: Physical Exam: Constitutional: Alert, cooperative. No acute distress Head, Ears, Nose: Normocephalic, atraumatic. External ears, nose normal Eyes: Conjunctivae/corneas clear. No icterus. No ptosis. Neck: painful ROM Cardiovascular: S1, S2 + Respiratory: Good air entry, clear to auscultation bilaterally GI: Soft, non-tender; bowel sounds normal. No peritoneal signs Musculoskeletal: Right BKA, left hand fourth finger amputation. PermCath, site non tender Skin: No rash or abscess Hem/Lymphatic: No palpable cervical or supraclavicular nodes. No lymphangitis Psych: Mood ok. Affect normal Neurological: Awake, alert, oriented. No gross abnormality - Constitutional Vitals: Vital Signs Temp Pulse Resp BP Pulse Ox 98.7 F 90 20 158/82 96 05/13/22 05:44 05/13/22 05:44 05/13/22 05:44 05/13/22 05:44 05/13/22 05:44 Temperature -Last 24 Hours Temperature 98.7 F Temperature 99.8 F Temperature 97.6 F Temperature 97.9 F Temperature 98.2 F - Labs CBC & Chem 7: 05/13/22 04:43 05/13/22 04:43 Labs: Abnormal lab results 05/12/22 05/12/22 05/13/22 Range/Units 09:02 11:15 04:43 Hgb 11.6 L (11.8-15.2) gm/dl RDW 16.0 H (13.2-15.2) % Lymph % (Auto) 5.3 L (13.4-35.0) % [place] % (Auto) 10.1 H (0.0-7.3) % Eos % (Auto) 5.8 H (0.0-4.3) % Lymph # (Auto) 0.4 L (1.2-5.4) K/mm3 Eos # (Auto) 0.5 H (0.0-0.4) K/mm3 Seg Neutrophils % 78.5 H (40.0-70.0) % Sodium (137-145) mmol/L Chloride (98-107) mmol/L BUN (9-20) mg/dL Creatinine (0.8-1.3) mg/dL Glucose (75-100) mg/dL POC Glucose 122 H 117 H (70-105) mg/dL 05/13/22 Range/Units 04:43 Hgb (11.8-15.2) gm/dl RDW (13.2-15.2) % Lymph % (Auto) (13.4-35.0) % [place] % (Auto) (0.0-7.3) % Eos % (Auto) (0.0-4.3) % Lymph # (Auto) (1.2-5.4) K/mm3 Eos # (Auto) (0.0-0.4) K/mm3 Seg Neutrophils % (40.0-70.0) % Sodium 136 L (137-145) mmol/L Chloride 95.4 L (98-107) mmol/L BUN 38 H (9-20) mg/dL Creatinine 9.0 H (0.8-1.3) mg/dL Glucose 155 H (75-100) mg/dL POC Glucose (70-105) mg/dL
[2022-05-13] MEDS: FINASTERIDE 5 MG TAB PO SCH (09:13)
[2022-05-13] MEDS: ASPIRIN 81 MG TAB CHEW PO SCH (09:13)
[2022-05-13] MEDS: FOLIC ACID/VIT B COMP W-C 1 MG (RENAL CAPS) PO SCH (09:13)
[2022-05-13] MEDS: CETIRIZINE 10 MG TAB PO SCH (09:13)
[2022-05-13] MEDS: MORPHINE 2 MG/1 ML INJ IV PRN ×2 (09:18→20:19)
--- NOTE | 2022-05-13 12:25 | Magnetic Resonance Report ---
MR cervical spine wo con INDICATION / CLINICAL INFORMATION: 61 years Male; bacteremia, neck, back pain, eval discitis,osteo. TECHNIQUE: Multisequence, multiplanar images of the cervical spine were obtained. COMPARISON: None available. FINDINGS: CRANIOCERVICAL JUNCTION:No significant abnormality. ALIGNMENT: This mild curvature the cervical spine, convex toward the right. There is no significant s pondylolisthesis. VERTEBRAE:There is marked disc space narrowing at C6-7 with slight edema which would appear to be on a degenerative basis at. Milder findings are noted at C5-6. VISUALIZED SPINAL CORD: The motion significantly degrades the image quality and obscures evaluation o f the cervical spinal cord at. However, the cord appears to demonstrate appropriate morphology. [id number] ANALYSIS: C2-3: There is no disc protrusion or significant central spinal stenosis. The left facet and uncovert ebral joint hypertrophy appear to result in moderate to marked left neural foraminal narrowing. C3-4: The spondylosis is greater on the left with effacement of the left lateral recess and moderate to marked left neural foraminal narrowing. Milder narrowing is seen on the right. There is no signifi cant direct cord compression. C4-5: The spondylosis is also greater on the left with slight encroachment on the left ventral cord. There is also effacement of the left lateral recess with moderate to marked left foraminal narrowing. C5-6: The spondylosis also slightly encroaches on the ventral cord at this level at. There is moderat e to marked left neural foraminal narrowing. C6-7: The disc bulge effaces the subarachnoid space without direct cord compression. There is mild en croachment on the right lateral recess with apparent mild to moderate to right neural foraminal narro wing. Mild narrowing is seen on the left C7-T1: There is no disc protrusion or significant stenosis. PARASPINAL SOFT TISSUES: There is notable fluid signal within the prevertebral soft tissues particula rly at the C4 level measuring 0.8 cm greatest AP dimension. Reactive the fluid may be seen at within the prevertebral soft tissues. However, correlation would be needed regarding concern for retropharyn geal abscess in this patient with given history of "bacteremia". Again, no increased signal seen with in the disc spaces on the current study to indicate discitis. ADDITIONAL FINDINGS: No epidural collections are identified. IMPRESSION: 1. The study is limited by motion. However, there are not multilevel degenerative the changes involvi ng cervical spine with spondylosis and neural foraminal narrowing as detailed above. 2. There is fluid signal projected within the prevertebral soft tissues as a detailed above. There is no increased signal within the cervical disc spaces to indicate cervical discitis on the current exa m. Signer Name: Andrew Nesbitt MD Signed: 05/13/2022 12:21 PM Workstation Name: [email or web address]
--- NOTE | 2022-05-13 12:29 | Magnetic Resonance Report ---
MRI THORACIC SPINE WITHOUT CONTRAST INDICATION / CLINICAL INFORMATION: bacteremia, neck, back pain, eval discitis,osteo. TECHNIQUE: Multisequence, multiplanar images of the thoracic spine were obtained. COMPARISON: None available. FINDINGS: ALIGNMENT: There appears be milder kyphoscoliosis of the thoracic spine, convex toward the left. VERTEBRAE:The motion significantly degrades the image quality. However, there is relative decreased s ignal along the thoracic vertebral bodies on all sequences which is nonspecific though correlation be needed regarding marrow replacing process. No focal edematous lesions are identified. Additionally, there is significant increased signal seen within the disc spaces to indicate discitis. VISUALIZED SPINAL CORD: The thoracic cord is particularly obscured by the degree of motion. However, the cord appears to demonstrate appropriate morphology and signal intensity on the combination of seq uences. INTERVERTEBRAL DISCS: There is multilevel disc desiccation disc space narrowing involving the mid to lower thoracic segments at. There are also associated minimal a disc bulges. However, there is no joni dence of focal disc protrusion or significant central spinal stenosis of the thoracic spine. PARASPINAL SOFT TISSUES: No significant abnormality. ADDITIONAL FINDINGS: No definitive epidural collections are identified. IMPRESSION: 1. There is mild kyphoscoliosis of the thoracic spine with multilevel degenerative changes as describ ed. However, there is no disc protrusion or significant stenosis. 2. The study is limited by motion. However, there is no clear evidence of significant edema within th e thoracic disc spaces are adjacent vertebral bodies to indicate discitis. Signer Name: Andrew Nesbitt MD Signed: 05/13/2022 12:24 PM Workstation Name: [email or web address]
--- NOTE | 2022-05-13 12:33 | Magnetic Resonance Report ---
MR lumbar spine wo con INDICATION / CLINICAL INFORMATION: 61 years Male; bacteremia, neck, back pain, eval discitis,osteo. TECHNIQUE: Multisequence, multiplanar images of the lumbar spine were obtained. COMPARISON: None available. FINDINGS: ALIGNMENT: There is no significant spondylolisthesis or scoliosis of the lumbar spine. VERTEBRAE:There is marked disc space narrowing with associated endplate changes. The findings include increased T1-weighted signal and most consistent with [place] type to degenerative endplate of finding s at. The slight adjacent edema is most likely on a degenerative basis at. Otherwise, there is no kathleen ar evidence of increased signal within the remaining disc spaces to indicate discitis or osteomyeliti s. There is relative mild diffuse signal involving visualized vertebral bodies which may be related to t he degree of motion in technique though correlation be needed regarding marrow replacing process. No focal edematous lesions are appreciated. VISUALIZED SPINAL CORD: No significant abnormality. [id number] ANALYSIS: L1-2: No significant abnormality. L2-3: No significant abnormality. L3-4: The broad-based disc bulge slightly flattens the ventral thecal sac. The neural foramen are pat ent. L4-5: The disc bulge also slightly flattens the thecal sac at this level. There is mild foraminal nita rowing bilaterally. L5-S1: The broad-based disc bulge slightly flattens the ventral thecal sac. This mild foraminal narro wing bilaterally. PARASPINAL SOFT TISSUES: No focal fluid collections are seen within the visualized paraspinal soft ti ssues. ADDITIONAL FINDINGS: No epidural collections are identified. IMPRESSION: 1. The findings are most consistent with advanced degenerative disc changes at L5-S1 with mild neural foraminal narrowing bilaterally. 2. There are also multilevel degenerative changes and mild disc bulges involving remaining segments a s described. There is no significant increased signal within the lumbar disc spaces to indicate disci tis or osteomyelitis. Signer Name: Andrew Nesbitt MD Signed: 05/13/2022 12:29 PM Workstation Name: [email or web address]
--- NOTE | 2022-05-13 16:20 | Operative Report ---
Operative Report Operative Report: Exam: Removal of right chest wall PermCath Clinical indication: Patient with a history of a right chest wall tunneled hemodialysis catheter placed at an outside institution who presents with sepsis Date: 05/13/2022 Procedure: Following an explanation of the risks, benefits and alternatives; informed consent was obtained. The procedure was performed at bedside in the patient's room. The patient's dressing and retention sutures were removed and the indwelling tunneled hemodialysis catheter removed. Hemostasis was then achieved using manual compression. A sterile dressing was then applied. The patient tolerated the procedure well. There were no immediate postprocedure complications. Impression: Removal of right chest wall tunneled hemodialysis catheter
[2022-05-13] MEDS ORDERED: VANCOMYCIN/NS 1 GM/250 ML 1 GM/250 ML BAG IV SCH (20:00)
[2022-05-14] MEDS: HEPARIN 5,000 UNIT/1 ML VIAL SUB-Q SCH ×2 (06:08→14:14)
[2022-05-14 06:12] LABS: Calcium 8.7 mg/dL (8.4-10.2)
[2022-05-14] MEDS: INSULIN LISPRO 100 UNIT/ML SUB-Q SCH ×3 (07:30→16:30)
--- NOTE | 2022-05-14 09:18 | Progress Note ---
Assessment and Plan Assessment and plan: #Sepsis secondary to MRSA bacteremia -blood cultures from 05/09: 4/4 bottles growing MRSA -blood cultures from 05/12: 2/4 GPCs; repeat blood cultures ordered today -Continue vancomycin -Continue to follow repeat blood culturesuntil negative -Line holiday -Echocardiogram 05/09 did not show vegetations; YUMIKO ordered due to repeat cultures being positive -MRI of the C, T and L-spine negative for findings of discitis -Infectious disease following, assistance appreciated #End-stage renal disease on dialysis -HD outpatient MWF -Dialyzed on 05/12; permacath to be removed today for line holiday -Nephrology following, assistance appreciated -Renally dose medications, avoid nephrotoxins #Chronic systolic heart failure -Echocardiogram 05/09: LVEF 35% -continue BB, ARB not started due to renal impairment #Hypotension-resolved #Hypertension -continue coreg -low BP likely secondary to bacteremia #Type 2 diabetes mellitus, controlled -continue accuchecks + SSI #Generalized weakness -Improved, likely secondary to bacteremia #Chronic respiratory failure -patient intermittently uses supplemental O2 at home -PRN oxygen as needed #Advanced care planning -Disease education conducted, care plan discussed, diagnoses discussed, prognosis discussed, and patient acknowledges understanding with care plan -Time: +30 min #Discharge planning -Mr. Velazquez is a [facility] patient. I discussed his care with Dr. Galindo via telephone. Due to the nature of his illness which may require a prolonged hospitalization, plan to transfer patient to [facility] once a bed is available. Dr. Hermann Diana will be the accepting Physician. Discharges orders placed. History Interval history: No acute events overnight. Patient reports using oxygen intermittently at home up to 2 L. He still has neck and back pain relieved with PRN medications. He has no other complaints at this time. He was updated about possibility of transfer to [facility] facility for further care. Hospitalist Physical - Physical exam Narrative exam: GENERAL: Well-developed well-nourished. Lying in bed, in no acute distress HEENT: NC in place @ 2LPM. CHEST/LUNGS: CTAB on room air HEART/CARDIOVASCULAR: RRR. No murmur, rubs or gallops appreciated. ABDOMEN: +BS. NT/ND. NEURO: No focal motor deficit. Follows all commands. EXTREMITIES: No cyanosis, clubbing or edema. R BKA stump intact. Old LUE AVF. Missing 4th digit of L hand. PSYCH: Cooperative. - Constitutional Vitals: Temp Pulse Resp BP Pulse Ox 98.3 F 81 18 130/84 94 05/14/22 05:35 05/14/22 05:35 05/14/22 05:50 05/14/22 05:35 05/14/22 05:50 HEART Score - HEART Score Troponin: Troponin T 0.315 ng/mL (0.00-0.029) H* 05/12/22 01:39 Results - Labs CBC & Chem 7: 05/13/22 04:43 05/14/22 04:32 Labs: Laboratory Last Values WBC 8.4 K/mm3 (4.5-11.0) 05/13/22 04:43 RBC 3.98 M/mm3 (3.65-5.03) 05/13/22 04:43 Hgb 11.6 gm/dl (11.8-15.2) L 05/13/22 04:43 Hct 36.3 % (35.5-45.6) 05/13/22 04:43 MCV 91 fl (84-94) 05/13/22 04:43 MCH 29 pg (28-32) 05/13/22 04:43 MCHC 32 % (32-34) 05/13/22 04:43 RDW 16.0 % (13.2-15.2) H 05/13/22 04:43 Plt Count 214 K/mm3 (140-440) 05/13/22 04:43 Lymph % (Auto) 5.3 % (13.4-35.0) L 05/13/22 04:43 [place] % (Auto) 10.1 % (0.0-7.3) H 05/13/22 04:43 Eos % (Auto) 5.8 % (0.0-4.3) H 05/13/22 04:43 Baso % (Auto) 0.3 % (0.0-1.8) 05/13/22 04:43 Lymph # (Auto) 0.4 K/mm3 (1.2-5.4) L 05/13/22 04:43 [place] # (Auto) 0.8 K/mm3 (0.0-0.8) 05/13/22 04:43 Eos # (Auto) 0.5 K/mm3 (0.0-0.4) H 05/13/22 04:43 Baso # (Auto) 0.0 K/mm3 (0.0-0.1) 05/13/22 04:43 Seg Neutrophils % 78.5 % (40.0-70.0) H 05/13/22 04:43 Seg Neutrophils # 6.6 K/mm3 (1.8-7.7) 05/13/22 04:43 Sodium 138 mmol/L (137-145) 05/14/22 04:32 Potassium 4.4 mmol/L (3.6-5.0) 05/14/22 04:32 Chloride 96.3 mmol/L (98-107) L 05/14/22 04:32 Carbon Dioxide 22 mmol/L (22-30) 05/14/22 04:32 Anion Gap 24 mmol/L 05/14/22 04:32 BUN 54 mg/dL (9-20) H 05/14/22 04:32 Creatinine 12.2 mg/dL (0.8-1.3) H 05/14/22 04:32 Estimated GFR 5 ml/min 05/14/22 04:32 BUN/Creatinine Ratio 4 % 05/14/22 04:32 Glucose 150 mg/dL (75-100) H 05/14/22 04:32 POC Glucose 217 mg/dL (70-105) H 05/13/22 16:40 Calcium 8.7 mg/dL (8.4-10.2) 05/14/22 04:32 Magnesium 1.80 mg/dL (1.7-2.3) 05/12/22 01:39 Total Bilirubin 0.30 mg/dL (0.1-1.2) 05/12/22 01:39 AST 29 units/L (5-40) 05/12/22 01:39 ALT 52 units/L (7-56) 05/12/22 01:39 Alkaline Phosphatase 152 units/L (35-129) H 05/12/22 01:39 Troponin T 0.315 ng/mL (0.00-0.029) H* 05/12/22 01:39 Total Protein 6.8 g/dL (6.3-8.2) 05/12/22 01:39 Albumin 3.6 g/dL (3.9-5) L 05/12/22 01:39 Albumin/Globulin Ratio 1.1 % 05/12/22 01:39 Triglycerides 137 mg/dL (2-149) 05/12/22 01:39 Cholesterol 81 mg/dL (50-199) 05/12/22 01:39 LDL Cholesterol Direct 21 mg/dL (50-130) L 05/12/22 01:39 HDL Cholesterol 30 mg/dL (40-59) L 05/12/22 01:39 Cholesterol/HDL Ratio 2.70 % 05/12/22 01:39 Random Vancomycin 17.2 ug/mL (0-40.0) 05/12/22 08:45 Microbiology: Microbiology 05/12/22 08:45 Peripheral/Venous Blood Culture - Preliminary 05/12/22 08:45 Peripheral/Venous Blood Culture - Preliminary NO GROWTH AFTER 24 HOURS Pham/IV: Voiding Method Urinal Active Medications - Current Medications Current Medications: Generic Name Dose Route Start Last Admin Trade Name Freq PRN Reason Stop Dose Admin Acetaminophen 650 mg 05/12/22 05:50 Acetaminophen 325 Mg Tab PO Q4H PRN Pain MILD(1-3)/Fever >100.5/NUR Aspirin 81 mg 05/12/22 10:00 05/13/22 09:13 Aspirin 81 Mg Tab Chew PO 81 mg DAILY ZAHIRA Administration Atorvastatin Calcium 40 mg 05/12/22 22:00 05/13/22 21:51 Atorvastatin 40 Mg Tab PO 40 mg QHS ZAHIRA Administration Carvedilol 25 mg 05/12/22 10:00 05/13/22 21:51 Carvedilol 25 Mg Tab PO 25 mg BID ZAHIRA Administration Cetirizine HCl 10 mg 05/12/22 10:00 05/13/22 09:13 Cetirizine 10 Mg Tab PO 10 mg DAILY ZAHIRA Administration Dextrose 50 ml 05/12/22 05:50 Dextrose 50% In Water (25gm) 50 Ml Syringe IV Q30MIN PRN Hypoglycemia Protocol Finasteride 5 mg 05/12/22 10:00 05/13/22 09:13 Finasteride 5 Mg Tab PO 5 mg QDAY ZAHIRA Administration Heparin Sodium (Porcine) 5,000 unit 05/12/22 06:00 05/14/22 06:08 Heparin 5,000 Unit/1 Ml Vial SUB-Q Not Given Q8HR ZAHIRA Sodium Chloride 100 mls @ 999 mls/hr 05/12/22 13:08 Nacl 0.9% IV FREDDIE PRN Hypotension Insulin Human Lispro 0 unit 05/12/22 07:30 05/14/22 07:30 Insulin Lispro 100 Unit/Ml SUB-Q Not Given ACHS [facility] Protocol Magnesium Hydroxide 30 ml 05/12/22 05:50 Magnesium Hydroxide (Mom) Oral Liqd Udc PO Q4H PRN Constipation Morphine Sulfate 2 mg 05/12/22 05:50 05/13/22 20:19 Morphine 2 Mg/1 Ml Inj IV 2 mg Q4H PRN Administration Pain, Moderate (4-6) Morphine Sulfate 4 mg 05/12/22 05:50 05/13/22 01:44 Morphine 4 Mg/1 Ml Inj IV 4 mg Q4H PRN Administration Pain , Severe (7-10) Multivit/Ca Carb/B Cmplx/FA/Prenat 1 cap 05/12/22 10:00 05/13/22 09:13 Folic Acid/Vit B Comp W-C 1 Mg (Renal Caps) PO 1 cap QDAY ZAHIRA Administration Ondansetron HCl 4 mg 05/12/22 05:50 Ondansetron 4 Mg/2 Ml Inj IV Q8H PRN Nausea And Vomiting Sodium Chloride 10 ml 05/12/22 10:00 05/13/22 21:51 Sodium Chloride 0.9% 10 Ml Flush Syringe IV 10 ml BID ZAHIRA Administration Sodium Chloride 10 ml 05/12/22 05:50 05/13/22 20:19 Sodium Chloride 0.9% 10 Ml Flush Syringe IV 10 ml PRN PRN Administration LINE FLUSH Nutrition/Malnutrition Assess - Dietary Evaluation Nutrition/Malnutrition Findings: Nutrition Notes Start: 05/12/22 11:18 Freq: Status: Active Protocol: Document 05/12/22 11:18 YAYA (Rec: 05/12/22 11:26 YAYA [id number]) Nutrition Notes Need for Assessment generated from: MD Order,Education Initial or Follow up Brief Note Current Diagnosis CKD (stage V CKD),Diabetes, Hypertension Other Pertinent Diagnosis ESRD+HD, CHF, Weakness, Hypotension. Current Diet Cardiac/Consistent Carbohydrates Diet (since B ). 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 Weight Status Appropriate Subjective/Other Information RD consult for nutrition education assessment. No reports available on Pt's PO intake of meals at the time , will assess at F/U. Pt is on Room Air, O2 saturation @ 99%, according to Physical Assessment History notes. Pt still in critical condition , not a candidate for Nutrition Education at the time, will assess feasibility on F/U. Percent of energy/protein needs met: Prescribed Cardiac/Consistent Carbohydrates Diet provides for energy/protein needs (1, 977 Kcal/86 g) during LOS. Nutrition Intervention Follow-Up By: 05/19/22 Additional Comments Nutrition education will be provided at F/U, if feasible. Continue monitoring food tolerance, %PO intake of meals , and BM.
[2022-05-14] MEDS: FINASTERIDE 5 MG TAB PO SCH (09:34)
[2022-05-14] MEDS: CETIRIZINE 10 MG TAB PO SCH (09:34)
[2022-05-14] MEDS: carvediloL 25 MG TAB PO SCH (09:34)
[2022-05-14] MEDS: ASPIRIN 81 MG TAB CHEW PO SCH (09:34)
[2022-05-14] MEDS: FOLIC ACID/VIT B COMP W-C 1 MG (RENAL CAPS) PO SCH (09:35)
[2022-05-14] MEDS: MORPHINE 2 MG/1 ML INJ IV PRN ×2 (09:40→14:19)
[2022-05-14 18:16] VITALS: BP 145/83
--- NOTE | 2022-05-14 18:24 | Discharge Summary ---
Providers - Providers Date of Admission: 05/12/22 05:50 Date of discharge: 05/14/22 Attending physician: BALDOMERO CLINTON MD 05/12/22 05:50 Consult to Dietitian/Nutrition [CONS] Routine Physician Instructions: Reason For Exam: Reason for Consult: Diet education Consult to Physician [CONS] Routine Comment: Consulting Provider: BEATRICE BIRD Physician Instructions: Reason For Exam: ESRD- on dialysis 05/12/22 08:41 Consult to Physician [CONS] Routine Comment: Consulting Provider: BLANCHE KILLIAN Physician Instructions: Reason For Exam: Staph aureus bacteremia 05/09 cultures 05/12/22 12:20 Consult to Physician [CONS] Routine Comment: Consulting Provider: CRYSTAL CURRY Physician Instructions: Reason For Exam: permacath removal Primary care physician: [employer]PER[employer]OR Hospitalization Reason for admission: Hypotension Condition: Stable Hospital course: Patient is a 61-year-old male with history of ESRD requiring dialysis on M, W, F; CHF and hypertension who was found in the emergency department altered. He was found to be hypotensive. He was admitted for further evaluation. Blood cultures from recent admission (05/09/22) were positive for MRSA. Repeat cultures showed 2 out of 4 positive for gram-positive cocci. Patient was started on vancomycin IV. His permacath was removed after 1 HD session. YUMIKO was ordered to evaluate for vegetations. Patient was transferred to his insurance preferred hospital once a bed became available. Disposition: 01 HOME / SELF CARE / HOMELESS Final Discharge Diagnosis (Prints w/discharge instructions): Sepsis secondary to MRSA bacteremia. End-stage renal disease requiring hemodialysis. Chronic systolic heart failure. Hypotension. Hypertension. Type 2 diabetes mellitus- controlled. Generalized weakness. Chronic respiratory failure Time spent for discharge: 50 minutes Core Measure Documentation - Palliative Care Palliative Care/ Comfort Measures: Not Applicable - Core Measures Any of the following diagnoses?: history only Exam - Physical Exam Narrative exam: GENERAL: Well-developed well-nourished. Sitting in the recliner, in no acute distress HEENT: Normocephalic. Atraumatic. CHEST/LUNGS: CTAB on room air HEART/CARDIOVASCULAR: RRR. No murmur, rubs or gallops appreciated. ABDOMEN: +BS. NT/ND. SKIN: No rashes noted. NEURO: No focal motor deficit. Follows all commands and is ambulatory. EXTREMITIES: No cyanosis, clubbing or edema. R BKA stump intact. Old LUE AVF. Missing 4th digit of L hand. PSYCH: Cooperative. - Constitutional Vitals: Temp Pulse Resp BP Pulse Ox 98.5 F 87 15 145/83 91 05/14/22 17:14 05/14/22 17:14 05/14/22 17:14 05/14/22 17:14 05/14/22 17:14 Plan Care Plan Goals: Please make sure to schedule follow-up appointments with your [place] primary care provider and specialists. Follow up with: PRIMARY MD ULIS [Primary Care Provider] - 7 Days
--- NOTE | 2022-05-14 22:13 | Progress Note ---
Assessment and Plan End-stage renal disease on hemodialysis Essential hypertension Anemia of ESRD MSSA bacteremia Hyperphosphatemia Hyperparathyroidism Status post hemodialysis yesterday, catheter removed post HD with subsequent line holiday. Provided labs remain stable over the weekend, PermCath can be placed on Monday. If cultures are still positive on Monday will need a temporary Vas-Cath at the time. Discussed with IR. Assess daily for needs for additional sessions of dialysis Continue antihypertensives Hold antihypertensives on hemodialysis days for systolics less than 160 Continue binders if applicable No indication for Epogen with HD Renally dose medications ESRD diet with 1.2-1. 4 g/kg/d protein intake Subjective Date of service: 05/14/22 Principal diagnosis: Staph bacteremia Interval history: Resting in bed Vitals, labs and I/os reviewed Interdisciplinary notes and consults reviewed Objective - Exam Narrative Exam: Constitutional: no acute distress Head: NC/AT Neck: supple Lungs: clear to auscultation CV: RRR, no M/R/G Abdomen: soft, non-tender, bowel sounds present Back: nontender Extremities: no edema, pulses WNL Skin: intact Neuro: no focal deficits, alert and oriented x4 - Vital Signs Vital signs: Vital Signs - 12hr 05/14/22 05/14/22 12:32 17:14 Temperature 98.6 F 98.5 F Pulse Rate 82 87 Respiratory 16 15 Rate Blood Pressure 129/88 145/83 O2 Sat by Pulse 92 91 Oximetry - Lab 05/13/22 04:43 05/14/22 04:32 Most recent lab results Calcium 8.7 mg/dL (8.4-10.2) 05/14/22 04:32 Magnesium 1.80 mg/dL (1.7-2.3) 05/12/22 01:39 Medications & Allergies - Medications Allergies/Adverse Reactions: Allergies No Known Allergies Allergy (Verified 05/27/19 17:20) Home Medications: Home Medications Medication Instructions Recorded Confirmed Last Taken Type Finasteride 5 mg PO QDAY 05/27/19 05/12/22 05/27/19 08:00 History Vit B Comp No.3/Folic/C/Biotin 1 tab PO QDAY 05/27/19 05/12/22 05/08/22 History [[facility] Rx Tablet] carvediloL [Coreg] 25 mg PO BID 05/27/19 05/12/2205/27/19 08:00 History Aspirin [Aspirin BABY CHEW TAB] 81 mg PO DAILY 05/09/22 05/12/22 Unknown History Cetirizine HCl [Allergy] 10 mg PO DAILY 05/09/22 05/12/22 Unknown History Hydralazine HCl 50 mg PO BID 05/09/22 05/12/22 Unknown History cloNIDine [Catapres] 0.1 mg PO BID 05/09/22 05/12/22 Unknown History AtorvaSTATin [Lipitor] 40 mg PO QHS tablet 05/10/22 05/12/22 Unknown Rx Folic Acid/Vit B Comp W-C [Renal 1 cap PO QDAY capsule 05/10/22 05/12/22 Unknown Rx Caps] amLODIPine 10 mg PO DAILY tablet 05/10/22 05/12/22 Unknown Rx Acetaminophen [Acetaminophen TAB] 650 mg PO Q4H PRN tablet 05/14/22 Unknown Rx
== END 2022-05-14 19:45 | disposition home or self-care (01) | DRG 871 ==
LOC: ED 22:42 → 3A 05-12 05:50
PROVIDERS: ADMIT Internal Medicine Geriatric Medicine; ATTEND Student in an Organized Health Care Education/Training Program
PROC: 5A1D70Z Performance of Urinary Filtration, Intermittent, Less than 6 Hours Per Day (ICD-10-PCS; principal; 2022-05-12)
PROC: 0JPT3XZ Removal of Tunneled Vascular Access Device from Trunk Subcutaneous Tissue and Fascia, Percutaneous Approach (ICD-10-PCS; 2022-05-13)
PROC: 02PAX3Z Removal of Infusion Device from Heart, External Approach (ICD-10-PCS; 2022-05-13)
DX: A41.02 Sepsis due to Methicillin resistant Staphylococcus aureus (principal); N18.6 End stage renal disease; I13.2 Hypertensive heart and chronic kidney disease with heart failure and with stage 5 chronic kidney disease, or end stage renal disease; I50.22 Chronic systolic (congestive) heart failure; J96.10 Chronic respiratory failure, unspecified whether with hypoxia or hypercapnia; E11.22 Type 2 diabetes mellitus with diabetic chronic kidney disease; Z22.321 Carrier or suspected carrier of Methicillin susceptible Staphylococcus aureus; Z79.82 Long term (current) use of aspirin; Z99.2 Dependence on renal dialysis; J45.909 Unspecified asthma, uncomplicated; Z89.511 Acquired absence of right leg below knee; E21.3 Hyperparathyroidism, unspecified; D63.1 Anemia in chronic kidney disease; Z79.899 Other long term (current) drug therapy
CPT/HCPCS: 36415; 71045; 72141; 72146; 72148; 80048; 80053; 80061; 80202; 82962; 83735; 84484; 85025; 87040; 87076; 87186; 99285; G0378; Q9967; J1644; J1815; J2270; J3370